=== PATIENT | female | born 1965 | race Caucasian/White ===

== ENCOUNTER 2017-05-08 11:51 | Emergency (ER) | payer MEDICARE, OTHER, SELFPAY | END 2017-05-08 13:06 | disposition home or self-care (01) | PROVIDERS: Emergency Provider Emergency Medicine; Visit Provider Emergency Medicine | DX: S60.221A Contusion of right hand, initial encounter (principal); W22.03XA Walked into furniture, initial encounter; Y92.009 Unspecified place in unspecified non-institutional (private) residence as the place of occurrence of the external cause; J44.9 Chronic obstructive pulmonary disease, unspecified; Z72.0 Tobacco use | CPT/HCPCS: 73110; 73130; 99282 ==

== ENCOUNTER 2017-06-01 20:51 | Emergency (ER) | payer MEDICARE, OTHER, SELFPAY ==
[2017-06-01 21:00] VITALS: BP 113/80; PULSE 85; RESP 24; TEMP 37.4; O2SAT 94; BMI 20.1
--- NOTE | 2017-06-01 21:16 | XR_ITS ---
XR chest 2V INDICATION: Shortness of breath COMPARISON: AP upright chest 01/04/2016 FINDINGS: The cardiovascular structures are unremarkable. No mediastinal shift or hilar mass is evident. The lungs are well expanded and clear bilaterally. The costophrenic sulci are sharp. No significant bony anomalies are apparent. IMPRESSION: Negative chest.
[2017-06-01 21:34] LABS: Basophils % 0.6 % (0.1-2.0); Eosinophils # 0.2 K/mm3 (0.0-0.4); Eosinophils % 2.9 % (0.1-12.0); Hematocrit 38.6 % (37.0-47.0); Hemoglobin 12.7 g/dL (12.2-16.2); Lymphocytes # 3.2 K/mm3 (0.7-4.5); Lymphocytes % 46.5 K/mm3 (10-50); Mean Corpuscular HGB Conc 32.9 g/dL (31.8-35.4); Mean Corpuscular Hemoglobin 29.6 pg (27.0-31.2); Mean Corpuscular Volume 90.2 fl (81-99); Monocytes # 0.4 K/mm3 (0.1-1.0); Monocytes % 5.8 % (1.7-9.3); Neutrophils % 44.2 % (37.0-80.0); Platelet Count 268 K/mm3 (142-424); Red Blood Count 4.28 M/mm3 (4.20-5.40); Red Cell Distribution Width 13.4 % (11.5-17.5); White Blood Count 6.8 K/mm3 (4.8-10.8)
[2017-06-01 21:44] LABS: Alanine Aminotransferase 20 U/L (12-78); Albumin Level 3.3 gm/dL (3.4-5.0); Albumin/Globulin Ratio 0.9 (1.1-1.8); Alkaline Phosphatase 105 U/L (46-116); Anion Gap 11.7 mEq/L (5-15); Aspartate Amino Transferase 21 U/L (15-37); Bilirubin,Total 0.2 mg/dL (0.2-1.0); Blood Urea Nitrogen 13 mg/dL (7-18); Calcium 8.6 mg/dL (8.5-10.1); Carbon Dioxide 28 mmol/L (21.0-32.0); Chloride 106 mmol/L (98-107); Creatinine Clearance Estimated 48 mL/min (0-300); Creatinine,Serum 1.07 mg/dL (0.55-1.02); Estimated Glomerular Filt Rate 54 ml/min (>60); GFR (African American) 65 ML/MIN (>60); Globulin 3.8 gm/dl (1.3-3.2); Glucose 113 mg/dL (74-106); Potassium 3.7 mmoL/L (3.5-5.1); Sodium 142 mmol/L (136-145); Total Protein,Serum 7.1 gm/dL (6.4-8.2)
[2017-06-01 21:52] LABS: Lactic Acid 1.5 mmol/L (0.4-2.0)
--- NOTE | 2017-06-01 22:40 | HMH.EDGENADL ---
ED Disposition Clinical Impression: Acute exacerbation of chronic obstructive pulmonary disease (COPD), Acute exacerbation of chronic bronchitis Disposition: Home, Self-Care Condition on Discharge: Fair Instructions: DI for Chronic Obstructive Pulmonary Disease, DI for Acute Bronchitis Additional Instructions: Please use your nebulizers every 4 hours, take her medications prescribed as directed, follow-up with your PCP within 2 days, if not better. Prescriptions: Amoxicillin/Potassium Clav [Augmentin 875-125 Tablet] 1 tab PO Q12H #20 tab methylPREDNISolone [Medrol] 4 mg PO DIRECTED #1 tab.ds.pk Referrals: Eduardo Morrissey MD [Primary Care Provider] - - Critical Care Critical Care Time: No Attestation: On 06/01/17, the high probability of a clinically significant, sudden or life threatening deterioration of the following system(s) required my full and direct attention, intervention and personal management. The time I documented below is in addition to time spent performing reported procedures but includes the following listed in this critical care notation. Medical Decision Making - Medical Records Medical records reviewed: Yes: I reviewed the patient's medical records. Vital Signs: 06/01/17 21:00 Temperature 99.4 F Temperature Source Oral Pulse Rate [Right Brachial] 85 Respiratory Rate 24 Blood Pressure [Right Arm] 113/80 Blood Pressure Mean [Right Arm] 91 Blood Pressure Source [Right Arm] Automatic Cuff Blood Pressure Position [Right Arm] Sitting 02 Sat by Pulse Oximetry 94 L Oxygen Delivery Method Room Air - Lab Data Lab results reviewed: Yes: I reviewed the patient's lab results. Lab Results 06/01/17 21:25: WBC 6.8, RBC 4.28, Hgb 12.7, Hct 38.6, MCV 90.2, MCH 29.6, MCHC 32.9, RDW 13.4, Plt Count 268, MPV 7.0 L, Neut % (Auto) 44.2, Lymph % (Auto) 46.5, [place] % (Auto) 5.8, Eos % (Auto) 2.9, Baso % (Auto) 0.6, Neut # (Auto) 3.0, Lymph # (Auto) 3.2, [place] # (Auto) 0.4, Eos # (Auto) 0.2, Baso # (Auto) 0.0 06/01/17 21:25: Sodium 142, Potassium 3.7, Chloride 106, Carbon Dioxide 28, Anion Gap 11.7, BUN 13, Creatinine 1.07 H, Estimated Creat Clear 48, Estimated GFR 54 L, Est GFR ( Amer) 65, Glucose 113 H, Calcium 8.6, Total Bilirubin 0.2, AST 21, ALT 20, Alkaline Phosphatase 105, Total Protein 7.1, Albumin 3.3 L, Globulin 3.8 H, Albumin/Globulin Ratio 0.9 L 06/01/17 21:25: Lactic Acid 1.5 06/01/17 21:40: Influenza Type A Ag Negative, Influenza Type B Ag Negative Result diagrams: 06/01/17 21:25 06/01/17 21:25 Orders (Tests/Meds): ED MEDICATIONS Discontinued Medications Generic Name Dose Route Start Last Admin Trade Name Freq PRN Reason Stop Dose Admin Albuterol/Ipratropium 3 ml 06/01/17 21:15 06/01/17 21:19 Duoneb 3ml Neb IH 06/01/17 21:16 3 ml ONCE ONE Administration Albuterol/Ipratropium 2 puff 06/01/17 22:47 06/01/17 22:49 Combivent Respimat 20mcg/100mcg Inhaler IH 06/01/17 22:48 2 puff ONCE ONE Administration Ceftriaxone Sodium 1 gm/ 50 mls @ 100 mls/hr 06/01/17 21:20 06/01/17 21:34 Sodium Chloride IV 06/01/17 21:49 100 mls/hr ONCE ONE Administration Methylprednisolone Sodium Succinate 125 mg 06/01/17 21:20 06/01/17 21:35 Solu-Medrol 125mg/2ml Vial IV 06/01/17 21:21 125 mg ONCE ONE Administration Miscellaneous 1 unit 06/01/17 22:47 06/01/17 22:49 Aerochamber/Optihaler MC 06/01/17 22:48 1 unit ONCE ONE Administration ORDERS Category Date Time Status Blood Culture Stat Micro 06/01/17 21:25 Received - Radiology Data #1 Image(s): Chest Image Reviewed: Yes I reviewed the patient's radiology results, Yes I have reviewed radiologist's interpretation Preliminary Findings: Normal/NAD - [place] Inquiry Pt receiving controlled substance: No - Reevaluation(s) Time: 22:30 Reevaluation #1: Upon reevaluation patient appears in no acute distress all medically stable, with significant improvement in her wheezing. Res
== END 2017-06-01 22:55 | disposition home or self-care (01) ==
PROVIDERS: Emergency Provider Emergency Medicine; PCP Emergency Medicine
DX: J44.1 Chronic obstructive pulmonary disease with (acute) exacerbation (principal); K21.9 Gastro-esophageal reflux disease without esophagitis; F17.210 Nicotine dependence, cigarettes, uncomplicated; Z79.899 Other long term (current) drug therapy
CPT/HCPCS: 71046; 80053; 83605; 85025; 87040; 87275; 87276; 96374; 99283

== ENCOUNTER 2018-04-07 13:47 | Outpatient (RCR) | payer MEDICARE, OTHER, SELFPAY | END 2018-04-14 08:31 | disposition home or self-care (01) | LOC: OT 13:47 | PROVIDERS: Visit Provider Orthopaedic Surgery | DX: M65.4 Radial styloid tenosynovitis [de Quervain] (principal) | CPT/HCPCS: 97763 ==

== ENCOUNTER 2020-09-09 18:46 | Emergency (ER) | payer MEDICARE, OTHER, SELFPAY ==
[2020-09-09 19:31] VITALS: BP 123/88; PULSE 101; O2SAT 97
[2020-09-09 19:37] VITALS: BP 123/88; PULSE 102; RESP 17; TEMP 37.3; O2SAT 98
== END 2020-09-09 19:40 | disposition left against medical advice (07) ==
LOC: ER 19:00
PROVIDERS: Emergency Provider Family Medicine; PCP Family Medicine
DX: Z53.21 Procedure and treatment not carried out due to patient leaving prior to being seen by health care provider (principal)
CPT/HCPCS: G0463; 99211

== ENCOUNTER 2022-02-08 18:27 | Emergency (ER) | payer MEDICARE, OTHER, SELFPAY ==
[2022-02-08] VITALS (7 sets, daily range): BP systolic 108–139; BP diastolic 72–97; PULSE 77–96; RESP 11–20; TEMP 37.4; O2SAT 92–98; BMI 19.7
--- NOTE | 2022-02-08 18:35 | PC.NURSE ---
POC Glucose 90
[2022-02-08 18:40] LABS: POC Glucose,Bedside 90 (70-110)
--- NOTE | 2022-02-08 18:41 | CT_ITS ---
PROCEDURE INFORMATION: Exam: CT Head Without Contrast Exam date and time: 02/08/2022 6:41 PM Age: 57 years old Clinical indication: Stroke-like symptoms; Right upper extremity and right lower extremity numbness/paresthesia; Additional info: R/O stroke TECHNIQUE: Imaging protocol: Computed tomography of the head without contrast. Radiation optimization: All CT scans at this facility use at least one of these dose optimization techniques: automated exposure control; mA and/or kV adjustment per patient size (includes targeted exams where dose is matched to clinical indication); or iterative reconstruction. Other technique: STROKE PROTOCOL was implemented. COMPARISON: HD CT HEAD W/O CONTRAST 01/04/2016 12:18 AM FINDINGS: Brain: The IACs are grossly normal. No extra-axial fluid collections. No evidence of acute intracranial hemorrhage. No CT evidence of large territory acute or subacute intracranial ischemia/infarct. No intracranial mass lesions. No midline shift or herniation. Cerebral ventricles: Ventricles normal. Pituitary gland and sella: The sella is grossly normal. Paranasal sinuses: Visualized paranasal sinuses are clear. Mastoid air cells: Visualized mastoid air cells are clear. Orbital cavities: Visualized orbital contents demonstrate no acute abnormality. Bones/joints: The calvarium and visualized facial bones are intact. Soft tissues: The scalp and visualized soft tissues demonstrate no acute abnormality. Vasculature: High riding right jugular bulb, normal variant. Sigmoid plate appears intact without gross dehiscence. Mild-moderate calcific atherosclerosis. No asymmetric vascular hyperdensities suggestive of thrombosis are identified. Other findings: Palumbo-white differentiation is well maintained. IMPRESSION: 1. No acute intracranial process. No intracranial hemorrhage or mass effect. 2. These findings initiated a critical results reporting process per stroke protocol. An addendum will be issued at the time of clinician notification. ASSESSMENT: ASPECTS ([place] Stroke Program Early CT Score) is 10.
--- NOTE | 2022-02-08 18:42 | XR_ITS ---
PROCEDURE INFORMATION: Exam: XR Chest Exam date and time: 02/08/2022 6:57 PM Age: 57 years old Clinical indication: Shortness of breath; Additional info: R/O stroke TECHNIQUE: Imaging protocol: Radiologic exam of the chest. Views: 1 view. COMPARISON: CR CXR2V XR chest 2V 06/01/2017 9:22 PM FINDINGS: Lungs: Slight pulmonary hyperexpansion and apical hyperlucency suspicious for mild changes of COPD. Pulmonary vasculature grossly normal. No gross pulmonary infiltrates or edema pattern. Pleural spaces: No pleural effusion. No pneumothorax. Heart/Mediastinum: Heart size normal. No tracheal/mediastinal shift. Bones/joints: No acute osseous abnormalities are identified. Soft tissues: Nipple shadows project over the basilar lung kent bilaterally/symmetrically. IMPRESSION: 1. No acute thoracic process. 2. Question mild changes of COPD.
--- NOTE | 2022-02-08 18:43 | PC.NURSE ---
xray notified of order for head ct
--- NOTE | 2022-02-08 19:02 | ECG_ITS ---
APPROVED REPORT Exam: Resting ECG HR:86 bpm ECG Measurements Heart Rate 86 AXES MI 148 P 26 QRSd 92 QRS 68 QT 352 T 65 QTc 395 Conclusion SINUS RHYTHM POSSIBLE RIGHT VENTRICULAR CONDUCTION DELAY [RSR (QR) IN V1/V2] BORDERLINE ECG UNCONFIRMED REPORT Electronically signed by : Darrell Mayo MD 02/14/2022 16:07:02
--- NOTE | 2022-02-08 19:05 | CT_ITS ---
PROCEDURE INFORMATION: Exam: CTA Head With Contrast, Arteriography Exam date and time: 02/08/2022 7:44 PM Age: 57 years old Clinical indication: Numbness; Additional info: Weakness TECHNIQUE: Imaging protocol: Computed tomographic angiography of the head with contrast. Exam focused on the arteries. 3D rendering (Not supervised by radiologist): MIP and/or 3D reconstructed images were created by the technologist. Radiation optimization: All CT scans at this facility use at least one of these dose optimization techniques: automated exposure control; mA and/or kV adjustment per patient size (includes targeted exams where dose is matched to clinical indication); or iterative reconstruction. Contrast material: ISOVUE; Contrast volume: 100 ml; Contrast route: INTRAVENOUS (IV); COMPARISON: CT HEAD/BRAIN WO CON 02/08/2022 6:41 PM FINDINGS: ANTERIOR CIRCULATION: Right internal carotid artery: The visualized distal right ICA cervical segment is unremarkable. The right ICA petrous segment is unremarkable. Mild calcific plaque in the cavernous segment without associated stenosis. The right ICA supraclinoid segment is unremarkable. Right middle cerebral artery: Unremarkable. No occlusion or significant stenosis. No aneurysm. Right anterior cerebral artery: Unremarkable. No occlusion or significant stenosis. No aneurysm. The anterior communicating artery is unremarkable. Left internal carotid artery: The left ICA petrous segment is unremarkable. Moderate calcific plaque in the cavernous segment without evidence of high-grade stenosis. The left ICA supraclinoid segment is unremarkable. Left middle cerebral artery: Unremarkable. No occlusion or significant stenosis. No aneurysm. Left anterior cerebral artery: Unremarkable. No occlusion or significant stenosis. No aneurysm. POSTERIOR CIRCULATION: Right vertebral artery: Small/hypoplastic distal right vertebral artery, normal variant. No occlusion or significant stenosis. No aneurysm. Left vertebral artery: Dominant left vertebral artery. No occlusion or significant stenosis. No aneurysm. Basilar artery: Unremarkable. No occlusion or significant stenosis. No aneurysm. Right posterior cerebral artery: Normal variant persistent origin with hypoplastic right P1 segment. No occlusion or significant stenosis. No aneurysm. Left posterior cerebral artery: Unremarkable. No occlusion or significant stenosis. No aneurysm. Venous sinuses: Limited assessment of the dural venous sinuses and cortical veins due to early contrast phase, largely non-opacified. Normal variant high riding right jugular bulb incidentally noted. The sigmoid plate appears intact without dehiscence. Brain: No enhancing brain lesions or vascular malformations are identified. Cerebral ventricles: No ventriculomegaly. Bones/joints: Unremarkable. No acute fracture. Soft tissues: Unremarkable. IMPRESSION: 1. No evidence of large vessel occlusion. No evidence of arterial dissection or aneurysm/pseudoaneurysm. No acute vascular abnormalities. 2. No acute intracranial process is evident.
--- NOTE | 2022-02-08 19:05 | CT_ITS ---
PROCEDURE INFORMATION: Exam: CTA Neck With Contrast Exam date and time: 02/08/2022 7:44 PM Age: 57 years old Clinical indication: Weakness TECHNIQUE: Imaging protocol: Computed tomographic angiography of the neck with contrast. 3D rendering (Not supervised by radiologist): MIP and/or 3D reconstructed images were created by the technologist. Radiation optimization: All CT scans at this facility use at least one of these dose optimization techniques: automated exposure control; mA and/or kV adjustment per patient size (includes targeted exams where dose is matched to clinical indication); or iterative reconstruction. Contrast material: ISOVUE; Contrast volume: 100 ml; Contrast route: INTRAVENOUS (IV); COMPARISON: CT FACIAL BONES WO CON 02/08/2022 7:32 PM FINDINGS: Right common carotid artery: Normal. No stenosis. No dissection or occlusion. Right internal carotid artery: Mild mixed calcific plaque in the right carotid bulb. Mild tortuosity. No stenosis. No dissection or occlusion. Right external carotid artery: Normal. No stenosis. No dissection or occlusion. Left common carotid artery: Mild tortuosity. No stenosis. No dissection or occlusion. Left internal carotid artery: Mild-moderate tortuosity. No stenosis. No dissection or occlusion. Left external carotid artery: Normal. No stenosis. No dissection or occlusion. Right vertebral artery: Normal. No stenosis. No dissection or occlusion. Left vertebral artery: Dominant left vertebral artery. Mild calcific atherosclerosis in the distal segment. No stenosis. No dissection or occlusion. Brachiocephalic artery: The brachiocephalic artery was marginally evaluated due to early contrast phase, without gross abnormality. Right subclavian artery: The right subclavian artery was marginally evaluated due to early contrast phase, without gross abnormality. Left subclavian artery: The left subclavian artery demonstrates mild-moderate post ostial calcific plaque without stenosis. Aorta: The visualized aortic arch demonstrates mild ectasia and calcific plaque. Aortic assessment is limited by early contrast phase with only minor enhancement at scan acquisition. No gross dissection. Pulmonary arteries: Mild dilatation of the central pulmonary arteries suggesting mild pulmonary arterial hypertension. Thyroid: There is a 19 mm low-density nodule in the right thyroid lobe. Nonemergent thyroid ultrasound evaluation recommended. Soft tissues: No significant soft tissue swelling or hematoma. Bones/joints: No acute osseous abnormalities are identified. Moderate disc space narrowing and marginal spurring C5-C6 with moderate canal stenosis at this level. Slight 2 mm degenerative anterolisthesis C3-C4 and C4-C5. Moderate-severe bilateral foraminal stenosis C5-C6 and C6-C7. Lungs: Moderate centrilobular emphysematous changes in the pulmonary apices. IMPRESSION: 1. No evidence of arterial stenosis, dissection, or aneurysm/pseudoaneurysm. No acute vascular abnormalities. 2. There is a 19 mm low-density nodule in the right thyroid lobe. Recommend nonemergent thyroid ultrasound assessment. 3. Additional nonemergent findings detailed above. COMMENTS: Consistent with the [employer]'s Incidental Findings Committee white paper (J Am Teresa Radiol 2015): In patients aged 35 years and older with an incidental thyroid nodule equal to or greater than 1.[address], MRI or extrathyroidal US, further evaluation with dedicated thyroid US is recommended for patients with normal life expectancy and without comorbidities. For smaller nodules without suspicious features, no further evaluation
--- NOTE | 2022-02-08 19:05 | CT_ITS ---
PROCEDURE INFORMATION: Exam: CT Maxillofacial Without Contrast Exam date and time: 02/08/2022 7:32 PM Age: 57 years old Clinical indication: Injury or trauma; Fall; Other: Scrape TECHNIQUE: Imaging protocol: Computed tomography of the of the face without contrast. Radiation optimization: All CT scans at this facility use at least one of these dose optimization techniques: automated exposure control; mA and/or kV adjustment per patient size (includes targeted exams where dose is matched to clinical indication); or iterative reconstruction. COMPARISON: CT HEAD/BRAIN WO CON 02/08/2022 6:41 PM FINDINGS: Orbital cavities: No acute intraorbital abnormalities. Bones/joints: No fractures or other bone lesions are identified. Left TMJ is appropriately aligned. The right TMJ is currently anteriorly subluxed with the condyle at the articular eminence, however this most likely represents incidental physiologic subluxation from jaw positioning and does not suggest traumatic dislocation. The infratemporal fossae and commercial artist spaces are unremarkable. Paranasal sinuses: The paranasal sinuses are clear. Mastoid air cells: The mastoid air cells are clear. Salivary glands: The parotid and submandibular glands are unremarkable. Lymph nodes: No adenopathy. Soft tissues: No significant facial soft tissue swelling is appreciated. No hematoma. Brain: No acute intracranial abnormalities. Pharynx: The parapharyngeal spaces are unremarkable. The nasopharynx is unremarkable. The oropharynx is unremarkable. The hypopharynx is unremarkable. Larynx: Normal epiglottis. Visualized larynx is unremarkable. Thyroid: 17 mm low-density nodule in the right thyroid lobe partially visualized. Recommend nonemergent thyroid ultrasound assessment. Trachea: The visualized proximal tracheal airway is unremarkable. Other findings: No foreign body. IMPRESSION: 1. No facial fractures are identified. 2. There is a 17 mm low-density nodule in the right thyroid lobe, partially visualized. Recommend nonemergent thyroid ultrasound assessment. 3. The right TMJ is currently anteriorly subluxed, however this likely represents incidental transient physiologic subluxation related to mandibular position and does not suggest traumatic dislocation. COMMENTS: Consistent with the [employer]'s Incidental Findings Committee white paper (J Am Teresa Radiol 2015): In patients aged 35 years and older with an incidental thyroid nodule equal to or greater than 1.[address], MRI or extrathyroidal US, further evaluation with dedicated thyroid US is recommended for patients with normal life expectancy and without comorbidities. For smaller nodules without suspicious features, no further evaluation or follow up is recommended.
[2022-02-08 19:26] LABS: Basophils # 0.1 K/mm3 (0-0.2); Basophils % 0.8 % (0.1-2.0); Eosinophils % 0.2 % (0.1-12.0); Hematocrit 44.2 % (37.0-47.0); Hemoglobin 14.8 g/dL (12.2-16.2); Lymphocytes # 2.1 K/mm3 (0.7-4.5); Lymphocytes % 12.4 % (10-50); Mean Corpuscular HGB Conc 33.5 g/dL (31.8-35.4); Mean Corpuscular Hemoglobin 30.8 pg (27.0-31.2); Mean Platelet Volume 7.9 fl (7.4-10.4); Monocytes # 0.7 K/mm3 (0.1-1.0); Monocytes % 3.9 % (1.7-9.3); Neutrophils % 82.7 % (37.0-80.0); Platelet Count 350 K/mm3 (142-424); Red Cell Distribution Width 14.6 % (11.5-17.5); White Blood Count 16.9 K/mm3 (4.8-10.8)
[2022-02-08 19:28] LABS: MANUAL DIFFERENTIAL MANUAL DIFFERENTIAL (MANUAL DIFF)
[2022-02-08 19:29] LABS: Alanine Aminotransferase 140 U/L (12-78); Albumin Level 4.7 g/dl (3.5-5.0); Albumin/Globulin Ratio 1.4 (1.1-1.8); Alkaline Phosphatase 105 U/L (38-126); Anion Gap 15.9 mEq/L (5-15); Aspartate Amino Transferase 214 U/L (14-36); Blood Urea Nitrogen 21 mg/dl (7-17); Calcium 9.2 mg/dl (8.4-10.2); Carbon Dioxide 30 mmol/L (22.0-30.0); Chloride 92 mmol/L (98-107); Creatinine Clearance Estimated 53 mL/min (50-200); Estimated Glomerular Filt Rate 65 ml/min (>60); GFR (African American) 78 ML/MIN (>60); Globulin 3.4 g/dL (1.3-3.2); Glucose 89 mg/dl (74-100); Potassium 3.9 mmoL/L (3.5-5.1); Sodium 134 mmol/L (136-145); Total Protein,Serum 8.1 g/dl (6.3-8.2)
[2022-02-08 19:31] LABS: Bilirubin,Total 0.1 mg/dl (0.2-1.3)
[2022-02-08 19:33] LABS: Activated Partial Thrombo Time 25.9 seconds (22.8-30.6); INR 0.98 (0.9-1.1); Prothrombin Time 10.6 seconds (10.1-12.5)
[2022-02-08 19:38] LABS: NT Pro Brain Natriuretic Pep. 962 pg/mL (0-125)
[2022-02-08 19:41] LABS: Troponin I 0.07 ng/ml (0.00-0.034)
[2022-02-08 19:55] LABS: Lymphocytes % 8 % (10-50); Neutrophils % 84 % (42-76); Platelet Estimate Normal; RBC Morphology Normal; Total Cells Counted 100
[2022-02-08 20:00] LABS: Thyroid Stimulating Hormone 0.25 uIU/mL (0.465-4.68)
--- NOTE | 2022-02-08 20:23 | HMH.EDNEU ---
Discharge Plan Disposition Patient Disposition: Left Against Medical Advice Condition: Serious Prescriptions Prescriptions: No Action omeprazole 40 MG capsule,delayed release(DR/EC) 40 mg PO BID aspirin 81 MG tablet,delayed release (DR/EC) 81 mg PO DAILY metoprolol tartrate 25 MG tablet 25 mg PO BID fluticasone propionate [Flonase Allergy Relief] 50 mcg/actuation spray,suspension 1 spray INTRANASAL DAILY Rx Instructions: administer into each nostril Referrals Follow up/Referrals: Maldonado Murrieta [Primary Care Provider] - See instructions Clinical Impressions Clinical Impression: Cerebrovascular accident Discharge ED Provider: Raúl Anders Neuro HPI <Martin Galan MD - Last Filed: 02/08/22 20:29> General Chief Complaint: Neuro Symptoms/Deficit Stated Complaint: weakness Time Seen by Provider: 02/08/22 19:23 Mode of Arrival: EMS Source of Information: Patient Limitations: No Limitations Description of Symptoms (Recalled from ER Triage Doc. by RN): to ed per squad with c/o rt side weakness. pt states she went to bed at midnight normal woke up approx 4:30 am with rt leg weaknss, lt side facial droop, slurred speech, lt side headache, nausea, vomiting. pt states she fell today and family came to house and helped her up. blood sugar 90 History of Present Illness HPI Narrative: This is a 57-year-old female presented to the emergency department some weakness. The patient states that last night at around midnight she had a fall out of bed. She does not remember anything since then. She was found by family members today at 4:30 PM by family members and was found to have some difficulty moving her right leg and some facial droop on the left side. She is complaining of some mild headache. She also fell forward and hit her chin on the left side. Patient states that she has a history of TIAs in the past but no focal remaining deficits. She complained of some mild headache at this time. She denies any chest pain or shortness of breath. No abdominal pain or vomiting or diarrhea. No fevers or chills. Related Data Home Medications Medication Instructions Recorded Confirmed aspirin 81 mg tablet,delayed 81 mg PO DAILY heart 11/29/18 02/08/22 release metoprolol tartrate 25 mg tablet 25 mg PO BID Heart 11/29/18 02/08/22 omeprazole 40 mg capsule,delayed 40 mg PO BID stomach 11/29/18 02/08/22 release fluticasone propionate 50 1 spray intranasal DAILY ALLERGIES 02/08/22 02/08/22 mcg/actuation nasal spray,suspension (Flonase Allergy Relief) Allergies Allergy/AdvReac Type Severity Reaction Status Date / Time adhesive [ADHESIVE] Allergy Unknown Verified 01/12/20 18:51 codeine [CODEINE] Allergy Unknown Verified 01/12/20 18:51 hydrocodone [HYDROCODONE] Allergy Unknown Verified 01/12/20 18:51 nickel [NICKEL] Allergy Unknown Verified 01/12/20 18:51 MILK (FOOD) Allergy Mild VOMITTING Uncoded 06/03/19 18:53 <Raúl Anders MD - Last Filed: 02/08/22 23:19> General Source of Information: EMS and Medical Record History of Present Illness HPI Narrative: This is a 57-year-old female presented to the emergency department some weakness. The patient states that last night at around midnight she had a fall out of bed. She does not remember anything since then. She was found by family members today at 4:30 PM by family members and was found to have some difficulty moving her right leg and some facial droop on the left side. She is complaining of some mild headache. She also fell forward and hit her chin on the left side. Patient states that she has a history of TIAs in the past but no focal remaining deficits. She complained of some mild headache at this time. She denies any chest pain or shortness of breath. No abdominal pain or vomiting or diarrhea. No fevers or chills. pt reports found on floor at 0430 and placed on cough and stayed there today and has rt lower ext weakness and
[2022-02-08 20:26] LABS: Microscopic, Urine URINE MICROSCOPIC (MICROSCOPIC)
[2022-02-08 20:27] LABS: Appearance,Urine CLEAR (Clear); Bilirubin,Urine Negative (Negative); Blood, Urine Negative (Negative); Color,Urine YELLOW (Yellow); Glucose,Urine (UA) Negative (Negative); Ketones,Urine TRACE (Negative); Leukocyte Esterase,Urine Negative (Negative); Nitrate,Urine Negative (Negative); Protein,Urine Negative (Negative); Urobilinogen,Urine 0.2 EU/dl (0.2)
[2022-02-08 20:30] LABS: Bacteria,Urine Trace /lpf; Squamous Epithelial Cell,Urine Occasional #/hpf (0-5)
--- NOTE | 2022-02-08 20:34 | CT_ITS ---
PROCEDURE INFORMATION: Exam: CT Lumbar Spine Without Contrast Exam date and time: 02/08/2022 8:45 PM Age: 57 years old Clinical indication: Injury or trauma; Fall; Additional info: Possible stroke TECHNIQUE: Imaging protocol: Computed tomography of the lumbar spine without contrast. Radiation optimization: All CT scans at this facility use at least one of these dose optimization techniques: automated exposure control; mA and/or kV adjustment per patient size (includes targeted exams where dose is matched to clinical indication); or iterative reconstruction. COMPARISON: CT THORACIC SPINE WO CON 02/08/2022 8:42 PM FINDINGS: Bones/joints: Question osteopenia. No fractures or pars defects. No blastic or lytic lesions. T12-L1: Normal. L1-L2: Normal. L2-L3: 2 mm disc bulge. Otherwise normal. L3-L4: Mild disc space narrowing. Mild anterior spurring. Mild posterior annular calcification and 3 mm disc bulge. No central canal stenosis. Mild bilateral facet hypertrophy. Mild left lateral recess stenosis. Mild-moderate left foraminal stenosis and mild right foraminal stenosis. L4-L5: Moderate disc space narrowing. 4 mm grade 1 anterolisthesis. Mild endplate sclerosis. Mild posterior annular calcification and 2 mm disc bulge. Moderate bilateral facet hypertrophy. Mild central canal stenosis with AP thecal sac dimension approximately 9 mm at the midline. Mild lateral recess stenosis bilaterally. Mild right foraminal stenosis. L5-S1: Mild disc space narrowing. Posterior annular calcification and 2 mm disc bulge. No canal or foraminal stenosis. Mild bilateral facet hypertrophy. Kidneys and ureters: Excreted contrast in the renal collecting systems incidentally noted. Vasculature: Moderate atherosclerotic aortoiliac calcification without aneurysm. Soft tissues: Visualized paraspinal soft tissues are normal. IMPRESSION: 1. No acute lumbar spine abnormalities. No evidence of fracture or traumatic subluxation. 2. Osteoarthritic changes and suspected osteopenia with multilevel degenerative disc and facet changes, most pronounced at L4-L5 where there is grade 1 anterolisthesis. 3. Mild canal stenosis L4-L5. Multilevel foraminal stenoses detailed above.
--- NOTE | 2022-02-08 20:34 | CT_ITS ---
PROCEDURE INFORMATION: Exam: CT Cervical Spine Without Contrast Exam date and time: 02/08/2022 8:39 PM Age: 57 years old Clinical indication: Injury or trauma; Fall; Additional info: Possible stroke TECHNIQUE: Imaging protocol: Computed tomography of the cervical spine without contrast. Radiation optimization: All CT scans at this facility use at least one of these dose optimization techniques: automated exposure control; mA and/or kV adjustment per patient size (includes targeted exams where dose is matched to clinical indication); or iterative reconstruction. COMPARISON: CT ANGIO NECK 02/08/2022 7:44 PM FINDINGS: Bones/joints: Straightening of the curvature of the cervical spine is likely positional. Moderate bilateral neural foraminal stenosis from C5-C7. Multilevel degenerative changes of the cervical spine producing multiple levels of mild spinal canal stenosis. This produces up to moderate spinal stenosis at C5-C6. Lungs: Scarring and emphysema in the lung apices. Thyroid: There is a 1.6 cm right thyroid nodule. Soft tissues: Unremarkable. IMPRESSION: 1. No acute fracture or malalignment of the cervical spine. 2. There is a 1.6 cm right thyroid nodule. If not previously performed, follow-up ultrasound is recommended. COMMENTS: Consistent with the [employer]'s Incidental Findings Committee white paper (J Am Teresa Radiol 2015): In patients aged 35 years and older with an incidental thyroid nodule equal to or greater than 1.[address], MRI or extrathyroidal US, further evaluation with dedicated thyroid US is recommended for patients with normal life expectancy and without comorbidities. For smaller nodules without suspicious features, no further evaluation or follow up is recommended.
--- NOTE | 2022-02-08 20:34 | XR_ITS ---
PROCEDURE INFORMATION: Exam: XR Pelvis Exam date and time: 02/08/2022 9:05 PM Age: 57 years old Clinical indication: Injury or trauma; Fall; Additional info: Possible stroke TECHNIQUE: Imaging protocol: Radiologic exam of the pelvis. Views: 1 or 2 view. COMPARISON: ABDPELW CT abdomen pelvis w con 11/29/2018 11:39 AM FINDINGS: Bones/joints: No fracture. Hip joints are well aligned. Hip joint spaces and articular surfaces are grossly well-maintained. No radiographic evidence to suggest transient osteoporosis or avascular necrosis. No blastic or lytic lesions. The SI joints are unremarkable. The pubic symphysis is unremarkable. Soft tissues: No gross soft tissue abnormalities. Organs: Lin catheter in the urinary bladder with excreted contrast from recent CT incidentally noted. Other findings: No gross sacrococcygeal abnormalities. IMPRESSION: No acute findings.
--- NOTE | 2022-02-08 20:34 | CT_ITS ---
PROCEDURE INFORMATION: Exam: CT Thoracic Spine Without Contrast Exam date and time: 02/08/2022 8:42 PM Age: 57 years old Clinical indication: Injury or trauma; Fall; Additional info: Possible stroke TECHNIQUE: Imaging protocol: Computed tomography of the thoracic spine without contrast. Radiation optimization: All CT scans at this facility use at least one of these dose optimization techniques: automated exposure control; mA and/or kV adjustment per patient size (includes targeted exams where dose is matched to clinical indication); or iterative reconstruction. COMPARISON: CT CERVICAL SPINE WO CON 02/08/2022 8:39 PM FINDINGS: Bones/joints: Slight rightward convexity midthoracic scoliotic curvature. Thoracic alignment is otherwise normal. No acute fractures. Mild chronic central superior endplate compression with Schmorl's node formation at T12. No blastic or lytic lesions. Minor disc space narrowing at a few midthoracic levels with mild anterior spurring. No compressive soft disc protrusion or extrusion is evident by CT. No canal stenosis. No neuroforaminal stenosis. Soft tissues: Paraspinous soft tissues are unremarkable without significant soft tissue swelling or soft tissue hematoma. Visualized upper abdominal structures were unremarkable. Lungs: Moderate emphysematous changes in the pulmonary apices. Bandlike atelectasis in the lung bases. Moderate bilateral bronchial wall thickening consistent with age indeterminate bronchitis or bronchial edema. No bronchiectasis. No bronchial occlusions. 5 mm pulmonary nodule in the right lower lobe on series 3, image 106 without measurable calcification. For patients at low risk (minimal or absent history of smoking and of other known risk factors), no routine follow-up is indicated. For patients at high risk (history of smoking or of other known risk factors), consider optional CT at 12 months. (Anne et al., Fleischner Society, 2017). Pleural spaces: No evidence of pleural effusion or pneumothorax within the scan range. Thyroid: Right thyroid nodule measuring 19 mm again noted, recommend nonemergent thyroid ultrasound assessment. IMPRESSION: 1. No acute thoracic spine abnormalities are identified. No acute fractures or traumatic subluxation. Mild chronic superior endplate compression and Schmorl's node at T12. 2. Minor degenerative changes and slight rightward convexity scoliosis. 3. Moderate emphysematous changes in the upper lung kent. 4. Bilateral bronchial wall thickening suggesting changes of age indeterminate bronchitis or bronchial edema. 5. There is a 5 mm pulmonary nodule in the right lower lobe, please see follow-up recommendations above. 6. There is a 19 mm right thyroid nodule, recommend nonemergent thyroid ultrasound assessment.
[2022-02-08 20:54] LABS: Creatine Kinase 109 U/L (30-135)
[2022-02-08 20:56] LABS: Amphetamine/Metha Screen,Urine Negative ng/ml (<1000)
[2022-02-08 20:57] LABS: Barbiturates Screen,Urine Negative ng/ml (<200); Benzodiazepines Screen,Urine Negative ng/ml (<200)
[2022-02-08 20:58] LABS: Cannabinoid Screen,Urine Positive ng/ml (<50); Cocaine Screen,Urine Negative ng/ml (<300)
[2022-02-08 20:59] LABS: Methadone Screen,Urine Negative ng/ml (<300)
[2022-02-08 21:00] LABS: Opiate Screen,Urine Negative ng/ml (<300); Phencyclidine Screen,Urine Negative ng/ml (<25)
--- NOTE | 2022-02-08 21:08 | PC.NURSE ---
Pt repositioned for comfort. No needs or complaints voiced at this time. Call light within reach.
[2022-02-08 21:52] LABS: Coronavirus 19, PCR Not Detected (NotDetected); Influenza A, PCR Not Detected (NotDetected); Influenza B, PCR Not Detected (NotDetected)
--- NOTE | 2022-02-08 22:28 | PC.NURSE ---
LABS OBTAINED. PT UPDATED. GCS 15. NO CHANGES AT THIS TIME.
--- NOTE | 2022-02-08 22:46 | PC.NURSE ---
and WILLIAMS Ramirez at
[2022-02-08 22:55] LABS: Troponin I 0.05 ng/ml (0.00-0.034)
--- NOTE | 2022-02-08 23:00 | PC.NURSE ---
Pt reports I want to leave, I don't want to stay here . Pt states she is calling my son to get me . Pt is A&OxMD Yfn states d/t poor ability to ambulate he would like to admit or look into transferring pt to another hospital. Pt continues to refuse to stay, she signed AMA form.
[2022-02-09 00:22] VITALS: BP 146/81; PULSE 87; RESP 18; TEMP 36.6; O2SAT 95
== END 2022-02-09 00:25 | disposition left against medical advice (07) ==
PROVIDERS: Emergency Medicine; Emergency Provider Emergency Medicine; PCP Family Medicine
DX: I63.9 Cerebral infarction, unspecified (principal); R47.02 Dysphasia; R29.810 Facial weakness; Z53.29 Procedure and treatment not carried out because of patient's decision for other reasons; Z79.82 Long term (current) use of aspirin; Z79.899 Other long term (current) drug therapy; Z88.6 Allergy status to analgesic agent; Z91.011 Allergy to milk products; Z91.048 Other nonmedicinal substance allergy status; F11.11 Opioid abuse, in remission
CPT/HCPCS: 51702; 70450; 70486; 70496; 70498; 71045; 72125; 72128; 72131; 72170; 80053; 80305; 81001; 82550; 82962; 83880; 84443; 84484; 85007; 85025; 85610; 85730; 93005; 99285; C9803; Q9967; U0003; U0005

== ENCOUNTER 2023-03-04 07:42 | Emergency (ER) | payer MEDICARE, OTHER, SELFPAY ==
[2023-03-04 07:42] VITALS: BP 96/59; PULSE 82; RESP 19; TEMP 36.8; O2SAT 99; BMI 18.6
[2023-03-04 08:00] VITALS: BP 118/80; PULSE 77; O2SAT 96
[2023-03-04 08:02] VITALS: O2SAT 99
--- NOTE | 2023-03-04 08:26 | HMH.EDGENADL ---
Discharge Plan Disposition Patient Disposition: Home, Self-Care Prescriptions Prescriptions: No Action fluticasone furoate-vilanterol [Breo Ellipta] 100-25 mcg/dose blister with device 2 inh inhalation DAILY cyclobenzaprine 5 mg tablet 5 mg PO TIDP PRN (Reason: Pain) ondansetron HCl 8 mg tablet 8 mg PO TIDP PRN (Reason: Nausea And Vomiting) Patient Comments: TAKE 1 TABLET BY MOUTH EVERY 8 HOURS NEEDED. buspirone 10 mg tablet 10 mg PO BID Vraylar 1.5 mg capsule 1.5 mg PO DAILY prazosin 1 mg capsule 1 mg PO DAILY Referrals Follow up/Referrals: Provider,Referral, MD [Primary Care Provider] - See instructions Activity Restrictions/Add. Instructions Additional Instructions/Restrictions: Your presentation today was consistent with side effect from the THC pen that you are inhaling. Please avoid this in the future return with any worsening symptoms. Clinical Impressions Clinical Impression: Drug side effects Discharge ED Provider: Dion Connell General Adult HPI General Chief complaint: Recheck/Abnormal Lab/Rx Stated complaint: Intoxication Time Seen by Provider: 03/04/23 08:05 Mode of Arrival: EMS Source of Information: Patient, EMS and Medical Record Limitations: No Limitations Description of Symptoms (Recalled from ER Triage Doc. by RN): Pt brought in by EMS d/t concerns of headache, inhaling pesticides accidently, and new THC pen use. She states I don't know what is wrong with me I can't stop laughing . Denies any abd pain though she does note mild nausea. Denies any falls. States she has recentlt acquired THC pen and has been hitting it several time. History of Present Illness HPI narrative: Patient is a 58-year-old female brought in today for visual disturbances secondary to smoking a THC pen. She states that she has been smoking marijuana daily for extended period of time however she just recently bought 1 of these more concentrated THC pens and has been hitting it several times this morning. She states that she was cooking and she started to feel like the skillet was moving and that the eggs were running from her and that the floor and the clemons were moving. She also states that she was uncontrollably laughing and because of this she started to panic and she called 911. She stated she asked did not want to come to the hospital she just wanted them to tell her that she was okay. She denies any pain or any other symptoms at the moment. Related Data Home Medications Medication Instructions Recorded Confirmed buspirone 10 mg tablet 10 mg PO BID 02/17/23 03/04/23 cariprazine 1.5 mg capsule 1.5 mg PO DAILY mood 02/17/23 03/04/23 (Vraylar) cyclobenzaprine 5 mg tablet 5 mg PO TIDP PRN Pain 02/17/23 03/04/23 fluticasone furoate 100 2 inh inhalation DAILY 02/17/23 03/04/23 mcg-vilanterol 25 mcg/dose inhalation powder (Breo Ellipta) ondansetron HCl 8 mg tablet 8 mg PO TIDP PRN Nausea And 02/17/23 03/04/23 Vomiting prazosin 1 mg capsule 1 mg PO DAILY 02/17/23 03/04/23 Allergies Allergy/AdvReac Type Severity Reaction Status Date / Time adhesive [ADHESIVE] Allergy Unknown Verified 01/12/20 18:51 codeine [CODEINE] Allergy Unknown Verified 01/12/20 18:51 hydrocodone [HYDROCODONE] Allergy Unknown Verified 01/12/20 18:51 nickel [NICKEL] Allergy Unknown Verified 01/12/20 18:51 MILK (FOOD) Allergy Mild VOMITTING Uncoded 06/03/19 18:53 [facility] Disclaimer: The information contained in this section may have been updated after the patient was seen, as this information can be updated by other users. Medical History (Updated 03/04/23 @ 08:25 by Dion Connell MD) Asthma Bipolar 1 disorder Eating disorder Hx of ovarian cyst Hypertension PTSD (post-traumatic stress disorder) Rash TIA (transient ischemic attack) Surgical History (Updated 02/17/23 @ 11:32 by MARY ANN Matthews) History of bladder suspension procedure History of rectal surger
--- NOTE | 2023-03-04 08:46 | PC.NURSE ---
pt gave me permission to let her son know what was going on with her
[2023-03-04 09:03] VITALS: BP 128/84; PULSE 84; RESP 17; TEMP 36.8; O2SAT 98
== END 2023-03-04 09:06 | disposition home or self-care (01) ==
PROVIDERS: Emergency Provider Student in an Organized Health Care Education/Training Program
DX: T40.715A Adverse effect of cannabis, initial encounter (principal); F17.210 Nicotine dependence, cigarettes, uncomplicated; J45.909 Unspecified asthma, uncomplicated; I10 Essential (primary) hypertension; F31.9 Bipolar disorder, unspecified; F43.10 Post-traumatic stress disorder, unspecified; Z86.73 Personal history of transient ischemic attack (TIA), and cerebral infarction without residual deficits; H53.8 Other visual disturbances
CPT/HCPCS: 99282

== ENCOUNTER 2023-05-27 17:47 | Outpatient (CLI) | payer MEDICARE, OTHER, SELFPAY ==
[2023-05-27 18:18] LABS: Basophils # 0.1 K/mm3 (0-0.2); Basophils % 1.1 % (0.1-2.0); Eosinophils # 0.2 K/mm3 (0.0-0.4); Eosinophils % 3.3 % (0.1-12.0); Hematocrit 43.5 % (37.0-47.0); Lymphocytes # 2.7 K/mm3 (0.7-4.5); Lymphocytes % 38.6 % (10-50); Mean Corpuscular HGB Conc 32.1 g/dL (31.8-35.4); Mean Corpuscular Hemoglobin 30.9 pg (27.0-31.2); Mean Corpuscular Volume 96.2 fl (81-99); Mean Platelet Volume 8.9 fl (7.4-10.4); Monocytes # 0.4 K/mm3 (0.1-1.0); Monocytes % 5.8 % (1.7-9.3); Neutrophils # 3.5 K/mm3 (1.8-7.8); Neutrophils % 51.3 % (37.0-80.0); Platelet Count 295 K/mm3 (142-424); Red Blood Count 4.52 M/mm3 (4.20-5.40); Red Cell Distribution Width 13.2 % (11.5-17.5); White Blood Count 6.9 K/mm3 (4.8-10.8)
[2023-05-27 18:25] LABS: Alanine Aminotransferase 14 U/L (12-78); Albumin Level 4.5 g/dl (3.5-5.0); Albumin/Globulin Ratio 1.6 (1.1-1.8); Alkaline Phosphatase 53 U/L (38-126); Amylase 104 U/L (30-110); Anion Gap 8.5 mEq/L (5-15); Aspartate Amino Transferase 32 U/L (14-36); Bilirubin,Total 0.4 mg/dl (0.2-1.3); Blood Urea Nitrogen 10 mg/dl (7-17); Calcium 9.2 mg/dl (8.4-10.2); Carbon Dioxide 29 mmol/L (22.0-30.0); Chloride 105 mmol/L (98-107); Estimated Glomerular Filt Rate 74 ml/min (>60); GFR (African American) 89 ML/MIN (>60); Globulin 2.9 g/dL (1.3-3.2); Glucose 98 mg/dl (74-100); Lipase 321 U/L (23-300); Potassium 4.5 mmoL/L (3.5-5.1); Sodium 138 mmol/L (136-145); Total Protein,Serum 7.4 g/dl (6.3-8.2)
[2023-05-27 18:43] LABS: Free T4 (Free Thyroxine) 1.81 ng/dl (0.78-2.19)
[2023-05-27 18:57] LABS: Thyroid Stimulating Hormone 0.62 uIU/mL (0.465-4.68)
[2023-05-27 19:16] LABS: Vitamin B12 264 pg/mL (239-931)
[2023-05-31 17:15] LABS: HBsAg Screen Negative (Negative); HCV Ab Reactive (Non Reactive); Hep A Ab, IGM Negative (Negative); Hep B Core Ab, IgM Negative (Negative)
== END 2023-05-27 23:59 ==
LOC: LAB.DROPOF 17:47
PROVIDERS: PCP Nurse Practitioner; Visit Provider Nurse Practitioner
DX: K21.9 Gastro-esophageal reflux disease without esophagitis (principal); R10.84 Generalized abdominal pain; R11.10 Vomiting, unspecified; R63.4 Abnormal weight loss
CPT/HCPCS: 80053; 80074; 82150; 82607; 83690; 84439; 84443; 85025

== ENCOUNTER 2024-04-23 13:21 | Outpatient (CLI) | payer MEDICARE, OTHER, SELFPAY | END 2024-04-23 23:59 | disposition home or self-care (01) | LOC: LAB.DROPOF 04-25 08:53 | PROVIDERS: PCP Nurse Practitioner Family; Visit Provider Nurse Practitioner Family | DX: N39.0 Urinary tract infection, site not specified (principal) | CPT/HCPCS: 87086; 87088; 87186 ==

== ENCOUNTER 2024-05-31 16:00 | Emergency (ER) | payer MEDICARE, OTHER, SELFPAY ==
[2024-05-31 16:02] VITALS: BP 127/91; PULSE 85; RESP 20; TEMP 36.6; O2SAT 97; BMI 19.1
[2024-05-31 16:06] VITALS: BP 126/96; PULSE 98; O2SAT 97
[2024-05-31 16:08] VITALS: BP 135/109; PULSE 91; O2SAT 98
--- NOTE | 2024-05-31 16:11 | ED_ITS ---
<Statement entered by Anna Lima DO - 05/31/24 20:43> I was consulted by the MARGARITA, and we discussed the complexity of the problems being addressed. I approved the treatment and management plan for this patient's care in the emergency department, thus performing a substantive portion of the medical decision making. Anna Lima DO Discharge Plan Disposition Patient Disposition: Home, Self-Care Condition: Fair Prescriptions Prescriptions: No Action cyclobenzaprine 5 mg tablet 5 mg PO TIDP PRN (Reason: Pain) Qty: 30 0RF prednisone 20 mg tablet 20 mg PO BID 5 Days Qty: 10 0RF naproxen 500 mg tablet 500 mg PO BID Qty: 30 0RF fluticasone furoate-vilanterol [Breo Ellipta] 100-25 mcg/dose blister with device 1 inh inhalation DAILY Qty: 60 2RF omeprazole 40 mg capsule,delayed release(DR/EC) 40 mg PO DAILY Qty: 90 2RF ondansetron HCl 8 mg tablet 8 mg PO TIDP PRN (Reason: Nausea And Vomiting) Qty: 30 0RF Referrals Follow up/Referrals: Leno Martínez MD [Staff Physician] - See instructions Teodoro Paredes APRN [Primary Care Provider] - See instructions Activity Restrictions/Add. Instructions Additional Instructions/Restrictions: I have referred you to pain management. Please call in the morning as soon as the clinic opens. I believe you have neuropathic pain and need the appropriate workup for that. If your symptoms do not improve or worsen or change follow-up with your PCP AUDREY or return to the ER as needed. Clinical Impressions Clinical Impression: Neuropathic pain Print Language Print Language: Chinese Discharge ED Provider: Anna Lima General Adult HPI General Chief complaint: Extremity Injury, Upper Stated complaint: Right arm pain Time Seen by Provider: 05/31/24 16:11 History of Present Illness HPI narrative: Patient presents for evaluation of right upper extremity pain. Patient gives a 2-year history of pain of her right upper extremity that is worsened over the last 5 days. She denies any known trauma ever. Patient states this began with pain in her right hand that is now progressed over the last 5 days to involve her entire arm. Patient states that it is worse when standing and arm is dependent and is able to be relieved when her arm is abducted and raised above her head and she is lying flat. She is seen multiple providers in multiple locations attempting to get relief without success. Patient denies any neurologic workup thus far. She has seen a hand surgeon in [facility] most recently. She saw her PCP this past who ordered a shoulder x-ray as an outpatient and gave her multimodal regimen to attempt to control her pain. Patient states that has not helped. Patient states that pain is a burning intense constant but retains motor and function. She denies chest pain shortness of breath fever chills hemoptysis hematochezia melena nausea vomit diarrhea. Related Data Previous Rx's ?Medication ?Instructions ?Recorded fluticasone furoate 100 1 inh inhalation DAILY #60 ea 03/09/24 mcg-vilanterol 25 mcg/dose inhalation powder (Breo Ellipta) omeprazole 40 mg capsule,delayed 40 mg PO DAILY #90 caps 03/09/24 release ondansetron HCl 8 mg tablet 8 mg PO TIDP PRN Nausea And 03/09/24 Vomiting #30 tabs cyclobenzaprine 5 mg tablet 5 mg PO TIDP PRN Pain #30 tabs 03/25/24 naproxen 500 mg tablet 500 mg PO BID #30 tabs 05/27/24 prednisone 20 mg tablet 20 mg PO BID 5 days #10 tabs 05/27/24 Allergies Allergy/AdvReac Type Severity Reaction Status Date / Time adhesive (ADHESIVE) Allergy Unknown Unknown Verified 05/27/24 11:54 allergy reaction codeine (CODEINE) Allergy Unknown Unknown Verified 05/27/24 11:54 allergy reaction hydrocodone (HYDROCODONE) Allergy Unknown Unknown Verified 05/27/24 11:54 allergy reaction nickel (NICKEL) Allergy Unknown Unknown Verified 05/27/24 11:54 allergy reaction Milk Containing Products Allergy Vomiting Verified 05/27/24 11:54 (Dairy) [facility] Disclaimer: The information contained in this section may have been updated after the patient was seen, as this information can be updated by other users. Medical History Infected sebaceous cyst of skin Weight loss, non-intentional Eating disorder Hx of ovarian cyst Asthma TIA (transient ischemic attack) Hypertension Bipolar 1 disorder PTSD (post-traumatic stress disorder) Rash Surgical History History of rectal surgery History of bladder suspension procedure Hx of hysterectomy Hx of right knee surgery Hx of appendectomy Family History Mother Alcoholism Coronary artery disease Diabetes FHx: mental illness Heart attack Hypertension Grandmother Alcoholism FHx: mental illness Father Cancer LUNG CA FHx: mental illness Sister Coronary artery disease Other Substance abuse Social History Smoking Status: Current every day smoker tobacco type: cigarettes packs per day: 2 second hand exposure: Yes alcohol intake: current alcohol intake frequency: holidays/special occasions only substance use type: former substance user and heroin current occupational status: disabled Travel in the last 8 weeks: None household members: significant other housing: house Have you lived/traveled outside [place] in past 30 days?: No Contact w/someone who lives/traveled outside US past 30 days?: No Exposure to someone with infectious disease in past 14 days?: No Do you have a fever (greater than 100.4 F or 38 C)?: No Have you tested positive for COVID-19: No Exposed to someone with COVID-19 in past 14 days?: No Do you have a sore throat?: No Do you have a cough?: No Do you have any weakness?: No Do you have any diarrhea?: No Are you experiencing any unusual bleeding?: No Do you have any muscle aches/pain?: No Do you have any abdominal pain?: No Are you experiencing loss of taste or smell?: No Other Medical History Have you received the Flu Vaccine for this season: Yes Have you received the Pneumonia Vaccine: No ROS Obtained: Yes Systems reviewed as appropriate & no additional complaints except as documented Physical Exam General General appearance: alert and in no apparent distress Respiratory Respiratory exam: Present normal lung sounds bilaterally Cardiovascular Cardiovascular exam: Present regular rate Neurological Exam Neurological exam: Present alert and oriented X3 Medical Decision Making Medical Records Medical records reviewed: Yes I reviewed the patient's medical records. Screening: Per USPSTF and CDC recommendations, given the prevalence of disease in our reg ion, it is our hospital?s policy to screen for HIV and viral Hepatitis for all patients aged 18 and over and those with ongoing risk factors. Collins Inquiry Pt receiving controlled substance: No Vital Signs: 05/31/24 16:02 05/31/24 16:06 05/31/24 16:08 Temperature 97.8 F Temperature Source Oral Pulse Rate 98 H 91 H Pulse Rate [Right] 85 Respiratory Rate 20 Blood Pressure 126/96 H 135/109 H Blood Pressure [Left Arm] 127/91 H Blood Pressure Mean [Left Arm] 103 Blood Pressure Source Blood Pressure Source [Left Arm] Automatic Cuff 02 Sat by Pulse Oximetry 97 97 98 Oxygen Delivery Method Room Air Room Air Room Air 05/31/24 16:31 05/31/24 17:11 Temperature 98 F Temperature Source Oral Pulse Rate 92 H 89 Pulse Rate [Right] Respiratory Rate 20 Blood Pressure 143/100 H 130/88 Blood Pressure [Left Arm] Blood Pressure Mean [Left Arm] Blood Pressure Source Automatic Cuff Blood Pressure Source [Left Arm] 02 Sat by Pulse Oximetry 97 Oxygen Delivery Method Room Air Room Air Lab Data Lab results reviewed: Yes I reviewed the patient's lab results. Orders (Tests/Meds): ORDERS Category Date Time Status Shoulder XR right miminum 2 views [XR shoulder RT min Exams 05/31/24 16:52 Completed 2V] Stat Medical Decision Narrative: In summary patient is a 59-year-old female who presents to the emergency department for evaluation of right upper extremity neuropathic pain. Patient is hemodynamically stable upon arrival, afebrile. Physical exam is remarkable for nonreproducible pain on exam with no C-spine tenderness no neck tenderness no bony deformity noted. Patient is neurovascularly intact distally in the right upper extremity and retains full range of motion. Patient has good drawing box tender strength has positive radial and ulnar pulses. I do not see any muscle wasting.. Differential diagnosis includes osteoarthritis versus thoracic outlet syndrome versus neuropathic pain versus radicular pain etc. Initial workup will be conducted with plain film shoulder x-ray. Initial interventions were considered however patient received a steroid shot in her PCPs office and is currently on steroids along with anti-inflammatories and muscle relaxers thus deferred for now. Initial workup reviewed by me shows no bony deformity on plain film x-ray. Upon repeat evaluation I was able to get the pain to subside by fashioning a sling with the arm at 45 degrees at the elbow suspended by a clean gauze sling around her neck. Patient did report that that significantly reduced her discomfort.. Given this I have offered the patient referral to pain management for further evaluation and neurologic testing and via patient directed decision making and discharge she is excepted. We will send a message to the pain management vp clinical research and refer her to Dr. Martínez with strict return precautions. Critical Care Critical Care Time Critical Care Time: No
--- NOTE | 2024-05-31 16:30 | PC.NURSE ---
Carter CRUZ at bedside
[2024-05-31 16:31] VITALS: BP 143/100; PULSE 92; O2SAT 97
--- NOTE | 2024-05-31 16:52 | XR_ITS ---
PROCEDURE INFORMATION: Exam: XR Right Shoulder Exam date and time: 05/31/2024 4:52 PM Age: 59 years old Clinical indication: Pain; Shoulder; Right; Additional info: Paresthesia TECHNIQUE: Imaging protocol: Radiologic exam of the right shoulder. Views: 2 or more views. COMPARISON: CT CERVICAL SPINE WO CON 02/08/2022 8:39 PM FINDINGS: Bones/joints: There is no evidence of acute fracture.There is no evidence of malalignment or dislocation. Soft tissues: Normal. IMPRESSION: There is no evidence of acute fracture.There is no evidence of malalignment or dislocation.
[2024-05-31 17:11] VITALS: BP 130/88; PULSE 89; RESP 20; TEMP 36.6; O2SAT 97
== END 2024-05-31 17:15 | disposition home or self-care (01) ==
PROVIDERS: Emergency Provider Emergency Medicine; PCP Nurse Practitioner Family
DX: M79.2 Neuralgia and neuritis, unspecified (principal); M79.641 Pain in right hand; M79.601 Pain in right arm
CPT/HCPCS: 73030; 99283

== ENCOUNTER 2024-08-03 11:30 | Outpatient (CLI) | payer MEDICARE, OTHER, SELFPAY ==
[2024-08-03 19:56] LABS: Basophils % 0.4 % (0.1-2.0); Eosinophils # 0.2 K/mm3 (0.0-0.4); Eosinophils % 2.8 % (0.1-12.0); Hematocrit 43.6 % (37.0-47.0); Hemoglobin 14.4 g/dL (12.2-16.2); Lymphocytes # 2.7 K/mm3 (0.7-4.5); Mean Corpuscular Hemoglobin 30.2 pg (27.0-31.2); Mean Corpuscular Volume 91.4 fl (81-99); Mean Platelet Volume 9.7 fl (7.4-10.4); Monocytes # 0.3 K/mm3 (0.1-1.0); Monocytes % 4.3 % (1.7-9.3); Neutrophils # 3.9 K/mm3 (1.8-7.8); Neutrophils % 54.2 % (37.0-80.0); Platelet Count 291 K/mm3 (142-424); Red Blood Count 4.77 M/mm3 (4.20-5.40); Red Cell Distribution Width 13.8 % (11.5-17.5); White Blood Count 7.2 K/mm3 (4.8-10.8)
[2024-08-03 21:38] LABS: Alanine Aminotransferase 17 U/L (12-78); Albumin Level 4.9 g/dl (3.5-5.0); Albumin/Globulin Ratio 1.7 (1.1-1.8); Alkaline Phosphatase 57 U/L (38-126); Anion Gap 9.7 mEq/L (5-15); Aspartate Amino Transferase 29 U/L (14-36); Bilirubin,Total 0.8 mg/dl (0.2-1.3); Blood Urea Nitrogen 9 mg/dl (7-17); Calcium 9.3 mg/dl (8.4-10.2); Carbon Dioxide 26 mmol/L (22.0-30.0); Chloride 107 mmol/L (98-107); Estimated Glomerular Filt Rate 73 ml/min (>60); GFR (African American) 89 ML/MIN (>60); Globulin 2.9 g/dL (1.3-3.2); Glucose 92 mg/dl (74-100); Lipase 318 U/L (23-300); Potassium 4.7 mmoL/L (3.5-5.1); Sodium 138 mmol/L (136-145); Total Protein,Serum 7.8 g/dl (6.3-8.2)
[2024-08-03 22:10] LABS: Thyroid Stimulating Hormone 0.77 uIU/mL (0.465-4.68)
[2024-08-03 22:29] LABS: Vitamin B12 280 pg/mL (239-931)
== END 2024-08-03 23:59 | disposition home or self-care (01) ==
LOC: LAB.DROPOF 08-04 08:50
PROVIDERS: PCP Family Medicine; Visit Provider Family Medicine
DX: R63.4 Abnormal weight loss (principal); R11.2 Nausea with vomiting, unspecified
CPT/HCPCS: 80053; 82607; 83690; 84443; 85025

== ENCOUNTER 2024-08-05 00:11 | Emergency (ER) | payer MEDICARE, OTHER, SELFPAY ==
--- NOTE | 2024-08-05 00:08 | ED_ITS ---
Discharge Plan Disposition Patient Disposition: Home, Self-Care Prescriptions Prescriptions: New methocarbamol 500 mg tablet 500 mg PO Q6H PRN (Reason: pain) Qty: 30 0RF lidocaine 5 % adhesive patch,medicated 1 patch topical DAILY PRN (Reason: pain) Qty: 30 0RF Rx Instructions: leave on most painful area for up to 12 hrs No Action cyclobenzaprine 5 mg tablet 5 mg PO TIDP PRN (Reason: Pain) Qty: 30 0RF ondansetron HCl 8 mg tablet 8 mg PO TIDP PRN (Reason: Nausea And Vomiting) Qty: 30 0RF tramadol 50 mg tablet 50 mg PO TID PRN (Reason: headache) Qty: 60 0RF fluticasone furoate-vilanterol [Breo Ellipta] 100-25 mcg/dose blister with device 1 inh inhalation DAILY Qty: 60 2RF omeprazole 40 mg capsule,delayed release(DR/EC) 40 mg PO DAILY Qty: 90 2RF Referrals Follow up/Referrals: Provider,Referral, MD [Primary Care Provider] - See instructions Activity Restrictions/Add. Instructions Additional Instructions/Restrictions: Please follow-up with your primary care provider for further assessment of the abnormality noted on your C-spine. Please return to the emergency department if you develop any new or worsening symptoms or become concerned for your health. Clinical Impressions Clinical Impression: Fall, Abnormal computed tomography of cervical spine Chest pain Qualifiers: Chest pain type: other chest pain Qualified Code(s): R07.89 - Other chest pain Print Language Print Language: Japanese Discharge ED Provider: Bassam Guajardo General Adult HPI General Chief complaint: Chest Pain Stated complaint: chest pain Time Seen by Provider: 08/05/24 00:15 History of Present Illness HPI narrative: 59-year-old female, history of bipolar disease, COPD, malnutrition presents with focal left upper anterior chest pain after a fall. She tripped and fell over her dog landing on her chest and has had focal chest pain since that time. Denies any concern for cardiac problems. Denies hitting her head, denies loss of consciousness. Denies any other pain. Patient is flailing about and is uncooperative and a poor historian. Related Data Previous Rx's ?Medication ?Instructions ?Recorded fluticasone furoate 100 1 inh inhalation DAILY #60 ea 03/09/24 mcg-vilanterol 25 mcg/dose inhalation powder (Breo Ellipta) omeprazole 40 mg capsule,delayed 40 mg PO DAILY #90 caps 03/09/24 release cyclobenzaprine 5 mg tablet 5 mg PO TIDP PRN Pain #30 tabs 03/25/24 ondansetron HCl 8 mg tablet 8 mg PO TIDP PRN Nausea And 08/03/24 Vomiting #30 tabs tramadol 50 mg tablet 50 mg PO TID PRN headache #60 tabs 08/03/24 lidocaine 5 % topical patch 1 patch topical DAILY PRN pain #30 08/05/24 ea methocarbamol 500 mg tablet 500 mg PO Q6H PRN pain #30 tabs 08/05/24 Allergies Allergy/AdvReac Type Severity Reaction Status Date / Time adhesive (ADHESIVE) Allergy Unknown Unknown Verified 08/05/24 00:34 allergy reaction codeine (CODEINE) Allergy Unknown Unknown Verified 08/05/24 00:34 allergy reaction hydrocodone (HYDROCODONE) Allergy Unknown Unknown Verified 08/05/24 00:34 allergy reaction nickel (NICKEL) Allergy Unknown Unknown Verified 08/05/24 00:34 allergy reaction Milk Containing Products Allergy Vomiting Verified 08/05/24 00:34 (Dairy) [facility] Disclaimer: The information contained in this section may have been updated after the patient was seen, as this information can be updated by other users. Medical History (Updated 08/05/24 @ 02:09 by Bassam Guajardo MD) Sinusitis Headache Nausea & vomiting Infected sebaceous cyst of skin Weight loss, non-intentional Eating disorder Hx of ovarian cyst Asthma TIA (transient ischemic attack) Hypertension Bipolar 1 disorder PTSD (post-traumatic stress disorder) Rash Surgical History History of rectal surgery History of bladder suspension procedure Hx of hysterectomy Hx of right knee surgery Hx of appendectomy Family History Mother Alcoholism Coronary artery disease Diabetes FHx: mental illness Heart attack Hypertension Grandmother Alcoholism FHx: mental illness Father Cancer LUNG CA FHx: mental illness Sister Coronary artery disease Other Substance abuse Social History (Updated 08/03/24 @ 10:33 by Paula Nayak MA) Smoking Status: Current every day smoker tobacco type: cigarettes packs per day: 2 second hand exposure: Yes alcohol intake: current alcohol intake frequency: holidays/special occasions only substance use type: former substance user and heroin current occupational status: disabled Travel in the last 8 weeks: None household members: significant other housing: house Other Medical History Have you received the Flu Vaccine for this season: Yes Have you received the Pneumonia Vaccine: No ROS Obtained: Yes All systems reviewed & no additional complaints except as documented Physical Exam General General appearance: alert, anxious (Writhing about in the bed) and cachectic Head Head exam: atraumatic and normocephalic Eye Eye exam: Present normal appearance, PERRL and EOMI ENT ENT exam: Present normal oropharynx and normal external ear exam Neck Neck exam: Present normal inspection and full ROM Chest Chest inspection: Present normal inspection, symmetric chest wall rise and tenderness (Left anterior upper) Respiratory Respiratory exam: Present normal lung sounds bilaterally; Absent respiratory distress Cardiovascular Cardiovascular exam: Present regular rate and normal rhythm Abdominal Exam Abdominal exam: Present soft; Absent distention, tenderness or guarding Extremities Exam Extremities exam: Present normal inspection; Absent edema or joint swelling Back Exam Back exam: Present normal inspection; Absent tenderness Neurological Exam Neurological exam: Present alert and oriented X3; Absent motor sensory deficit Psychiatric Psychiatric exam: Present normal affect and normal mood Skin Skin exam: Present warm, dry and normal color Lymphatic Lymphatic Findings: no adenopathy Medical Decision Making Medical Records Medical records reviewed: Yes I reviewed the patient's medical records. Screening: Per USPSTF and CDC recommendations, given the prevalence of disease in our region, it is our hospital?s policy to screen for HIV and viral Hepatitis for all patients aged 18 and over and those with ongoing risk factors. Collins Inquiry Pt receiving controlled substance: No Collins was queried for this patient: No Vital Signs: 08/05/24 00:30 Temperature 98.3 F Temperature Source Temporal Artery Scan Pulse Rate [Apical] 98 H Respiratory Rate 26 H Blood Pressure [Right Arm] 148/125 H Blood Pressure Mean [Right Arm] 132 02 Sat by Pulse Oximetry 100 Oxygen Delivery Method Room Air Lab Data Lab results reviewed: Yes I reviewed the patient's lab results. Lab Results 08/05/24 00:14: WBC 9.0, RBC 4.45, Hgb 13.5, Hct 39.3, MCV 88.3, MCH 30.3, MCHC 34.4, RDW 13.4, Plt Count 299, MPV 9.2, Neut % (Auto) 45.5, Lymph % (Auto) 45.3, [place] % (Auto) 6.0, Eos % (Auto) 2.8, Baso % (Auto) 0.3, Neut # (Auto) 4.1, Lymph # (Auto) 4.1, [place] # (Auto) 0.5, Eos # (Auto) 0.3, Baso # (Auto) 0.0, PT 9.8 L, INR 0.86 L, Sodium 135 L, Potassium 4.0, Chloride 102, Carbon Dioxide 26, Anion Gap 11.0, BUN 12 D, Creatinine 0.90, Estimated Creat Clear 43, Estimated GFR 64, Est GFR ( Amer) 78, Glucose 99, Calcium 9.6, Total Bilirubin 0.5, AST 33, ALT 16, Alkaline Phosphatase 63, Total Protein 7.7, Albumin 4.9, Globulin 2.8, Albumin/Globulin Ratio 1.8 08/05/24 00:14 08/05/24 00:14 Orders (Tests/Meds): ED MEDICATIONS Generic Name Dose Route Start Last Admin Trade Name Freq PRN Reason Stop Dose Admin Sodium Chloride 10 ml 08/05/24 00:10 Sodium Chloride 0.9% 10ml Vial IV 09/04/24 00:09 NEEDED PRN to Dilute Lorazepam inj Discontinued Medications Generic Name Dose Route Start Last Admin Trade Name Freq PRN Reason Stop Dose Admin Acetaminophen 1,000 mg 08/05/24 00:10 08/05/24 00:39 Acetaminophen 500mg Tab PO 08/05/24 00:11 Not Given ONCE ONE Hydromorphone HCl 0.5 mg 08/05/24 00:10 08/05/24 00:17 Hydromorphone 2mg/Ml Syringe IV 08/05/24 00:11 0.5 mg ONCE ONE Administration Ketorolac Tromethamine 30 mg 08/05/24 00:10 08/05/24 00:18 Ketorolac 30mg/Ml Vial IV 08/05/24 00:11 30 mg ONCE ONE Administration Lorazepam 1 mg 08/05/24 00:10 08/05/24 00:16 Lorazepam 2mg/Ml Vial IV 08/05/24 00:11 1 mg ONCE ONE Administration ORDERS Category Date Time Status CT cervical spine wo con Stat Cat Scan 08/05/24 00:[address] chest wo con Stat Cat Scan 08/05/24 00:[address] head/brain wo con Stat Cat Scan 08/05/24 00:13 Completed CXR --portable [XR chest portable] Stat Exams 08/05/24 00:10 Completed CBC w/Auto Diff [Complete Blood Count Auto Diff] Stat Lab 08/05/24 00:14 Completed CMP [Comprehensive Metabolic Panel] Stat Lab 08/05/24 00:14 Completed INR [Prothrombin Time INR] Stat Lab 08/05/24 00:14 Completed Medical Decision Narrative: 59-year-old female with history of malnutrition, COPD, bipolar presents for focal left upper chest pain after she fell tripped over her dog. History was obtained via interactive discussion with patient, EMS. On arrival, patient is [afebrile, hemodynamically stable, satting appropriately, alert, oriented x4, GCS 15], moving all extremities spontaneously. Full physical exam performed and significant for focal tenderness to the left upper thoracic chest wall. Patient is writhing around, uncooperative, grimacing, poor historian Differential includes but is not limited to intracranial trauma intrathoracic trauma intra-abdominal trauma spine trauma extremity trauma. Patient was given Dilaudid, Ativan, Tylenol Toradol for anxiolysis and pain control in order to assess patient for traumatic injuries. Workup initiated including chest x-ray, CT head, CT C-spine, CT chest Noncon, CBC CMP INR. On re-evaluation, patient [remains afebrile, HD stable.] Laboratory workup independently interpreted by me and significant for normal renal function, no significant electrolyte derangement, normal coags Imaging independently interpreted by me and significant for no evidence of rib fracture or pneumothorax on chest x-ray. Evidence of intracranial bleeding, cervical fracture or pulmonary contusions on CT See radiology read for full review of final results. Radiology notes a abnormality within the cervical spine though does not appear to be acute fracture or traumatic injury but does recommend a follow-up MRI. EKG, D-dimer, troponin was considered, but deemed unnecessary due to no concern for cardiac chest pain. Given patient history, exam and workup, patient's presentation most likely represents traumatic musculoskeletal chest pain. I discussed the abnormal finding on the C-spine with the patient and recommended she follow-up for MRI. Patient was discharged in stable condition with prescription for lidocaine patches and muscle relaxers.. Procedures Risk/Benefits of Procedure(s) Were Explained: Yes Critical Care Critical Care Time Critical Care Time: No
--- NOTE | 2024-08-05 00:10 | XR_ITS ---
PROCEDURE INFORMATION: Exam: XR Chest Exam date and time: 08/05/2024 12:17 AM Age: 59 years old Clinical indication: Chest wall pain; Additional info: Left chest pain after fall TECHNIQUE: Imaging protocol: Radiologic exam of the chest. Views: 1 view. COMPARISON: CR XR CHEST PORTABLE 02/08/2022 6:57 PM FINDINGS: Lungs: Unremarkable. No consolidation. Pleural spaces: Unremarkable. No pleural effusion. No pneumothorax. Heart/Mediastinum: Unremarkable. No cardiomegaly. Bones/joints: Unremarkable. IMPRESSION: No acute radiographic finding identified.
--- NOTE | 2024-08-05 00:13 | CT_ITS ---
PROCEDURE INFORMATION: Exam: CT Head Without Contrast Exam date and time: 08/05/2024 12:31 AM Age: 59 years old Clinical indication: Injury or trauma; Fall TECHNIQUE: Imaging protocol: Computed tomography of the head without contrast. Radiation optimization: All CT scans at this facility use at least one of these dose optimization techniques: automated exposure control; mA and/or kV adjustment per patient size (includes targeted exams where dose is matched to clinical indication); or iterative reconstruction. COMPARISON: CT ANGIO HEAD 02/08/2022 7:44 PM FINDINGS: Brain: No hemorrhage. Unremarkable white matter. No mass effect. Cerebral ventricles: No ventriculomegaly. Paranasal sinuses: Visualized sinuses are unremarkable. No fluid levels. Mastoid air cells: Visualized mastoid air cells are well aerated. Bones: Unremarkable. No acute fracture. Soft tissues: Unremarkable. IMPRESSION: No acute intracranial findings by CT criteria.
--- NOTE | 2024-08-05 00:13 | CT_ITS ---
PROCEDURE INFORMATION: Exam: CT Chest Without Contrast; Diagnostic Exam date and time: 08/05/2024 12:28 AM Age: 59 years old Clinical indication: Chest wall pain; Additional info: Trauma, left chest pain TECHNIQUE: Imaging protocol: Diagnostic computed tomography of the chest without contrast. Radiation optimization: All CT scans at this facility use at least one of these dose optimization techniques: automated exposure control; mA and/or kV adjustment per patient size (includes targeted exams where dose is matched to clinical indication); or iterative reconstruction. COMPARISON: CR XR CHEST PORTABLE 08/05/2024 12:17 AM FINDINGS: Lungs: Underlying diffuse centrilobular emphysematous changes. No consolidation. No masses. Pleural spaces: Unremarkable. No pneumothorax. No pleural effusion. Heart: Unremarkable. No cardiomegaly. No pericardial effusion. Coronary arteries: Atherosclerotic calcification of coronary arteries. Lymph nodes: Unremarkable. No enlarged lymph nodes. Vasculature: Atherosclerotic calcification of thoracic aorta without aneurysm. Bones/joints: Incidental T12 superior endplate Schmorl's node. No acute findings. Soft tissues: Unremarkable. IMPRESSION: No acute findings identified. COMMENTS: The presence of pulmonary emphysema on CT is an independent risk factor for lung cancer. In the absence of a history or active diagnosis of lung cancer, it is recommended that this patient with emphysema be evaluated for enrollment in a low dose CT lung cancer screening program.
--- NOTE | 2024-08-05 00:13 | CT_ITS ---
PROCEDURE INFORMATION: Exam: CT Cervical Spine Without Contrast Exam date and time: 08/05/2024 12:33 AM Age: 59 years old Clinical indication: Injury or trauma; Fall TECHNIQUE: Imaging protocol: Computed tomography of the cervical spine without contrast. Radiation optimization: All CT scans at this facility use at least one of these dose optimization techniques: automated exposure control; mA and/or kV adjustment per patient size (includes targeted exams where dose is matched to clinical indication); or iterative reconstruction. COMPARISON: CT CERVICAL SPINE WO CON 02/08/2022 8:39 PM FINDINGS: Bones: No acute fracture. Normal alignment. Chronic well-defined asymmetric prominence of left C4/5 neural foramen (series [id number], image 43). Lungs: Emphysematous changes in visualized apices. Soft tissues: Unremarkable. IMPRESSION: 1. No acute findings identified. 2. Chronic asymmetric prominence of left C4/5 neural foramen. Considerations include possible slow growing mass, cyst or anatomic variance. Consider nonurgent MRI for further imaging evaluation as clinically indicated.
[2024-08-05] MEDS: LORazepam 2MG/ML VIAL 1 MG IV (00:16)
[2024-08-05] MEDS: HYDROMORPHONE 2MG/ML SYRINGE 0.5 MG IV (00:17)
[2024-08-05] MEDS: KETOROLAC 30MG/ML VIAL 30 MG IV (00:18)
[2024-08-05 00:30] VITALS: BP 148/125; PULSE 98; RESP 26; TEMP 36.8; O2SAT 100; BMI 19.5
[2024-08-05 00:34] LABS: Basophils % 0.3 % (0.1-2.0); Eosinophils # 0.3 K/mm3 (0.0-0.4); Eosinophils % 2.8 % (0.1-12.0); Hematocrit 39.3 % (37.0-47.0); Hemoglobin 13.5 g/dL (12.2-16.2); Lymphocytes # 4.1 K/mm3 (0.7-4.5); Lymphocytes % 45.3 % (10-50); Mean Corpuscular HGB Conc 34.4 g/dL (31.8-35.4); Mean Corpuscular Hemoglobin 30.3 pg (27.0-31.2); Mean Corpuscular Volume 88.3 fl (81-99); Mean Platelet Volume 9.2 fl (7.4-10.4); Monocytes # 0.5 K/mm3 (0.1-1.0); Neutrophils # 4.1 K/mm3 (1.8-7.8); Neutrophils % 45.5 % (37.0-80.0); Platelet Count 299 K/mm3 (142-424); Red Blood Count 4.45 M/mm3 (4.20-5.40); Red Cell Distribution Width 13.4 % (11.5-17.5)
[2024-08-05 00:43] LABS: Albumin Level 4.9 g/dl (3.5-5.0); Chloride 102 mmol/L (98-107); Sodium 135 mmol/L (136-145)
[2024-08-05 00:46] LABS: Alanine Aminotransferase 16 U/L (12-78); Albumin/Globulin Ratio 1.8 (1.1-1.8); Alkaline Phosphatase 63 U/L (38-126); Aspartate Amino Transferase 33 U/L (14-36); Bilirubin,Total 0.5 mg/dl (0.2-1.3); Blood Urea Nitrogen 12 mg/dl (7-17); Carbon Dioxide 26 mmol/L (22.0-30.0); Creatinine Clearance Estimated 43 mL/min (50-200); Estimated Glomerular Filt Rate 64 ml/min (>60); GFR (African American) 78 ML/MIN (>60); Globulin 2.8 g/dL (1.3-3.2); INR 0.86 (0.9-1.1); Prothrombin Time 9.8 seconds (10.1-12.5); Total Protein,Serum 7.7 g/dl (6.3-8.2)
[2024-08-05 00:47] LABS: Calcium 9.6 mg/dl (8.4-10.2); Glucose 99 mg/dl (74-100)
[2024-08-05] MEDS: LIDOCAINE 5% TRANSDERMAL PATCH 1 EACH TP (02:14)
[2024-08-05 02:18] VITALS: BP 111/84; PULSE 82; RESP 16; TEMP 36.7; O2SAT 96
== END 2024-08-05 02:19 | disposition home or self-care (01) ==
PROVIDERS: Emergency Provider Emergency Medicine
DX: R07.89 Other chest pain (principal); R93.7 Abnormal findings on diagnostic imaging of other parts of musculoskeletal system; R07.9 Chest pain, unspecified; F17.210 Nicotine dependence, cigarettes, uncomplicated
CPT/HCPCS: 70450; 71045; 71250; 72125; 80053; 85025; 85610; 96374; 96375; 99284; J1171; J1885; J2060

== ENCOUNTER 2024-10-22 13:37 | Outpatient (CLI) | payer MEDICARE, OTHER, SELFPAY ==
--- OUTSIDE RECORDS SUMMARY | 2024-08-31 11:15 | XMS_ITS | Encounter Summary ---
Author Organization [facility] Address [address] [place] [address] Care Team Providers Care Religious Activities Director Name Role Phone Jarod Falcon MD Unavailable [phone] Gonsalo Quarles DPM Unavailable Unavailab Darrell Johansen DPM Unavailable [phone] No Pcp, Per Patient Primary Care Provider Candice fraga Reason for Referral * Specialty Diagnoses / Procedures Referred By Contmarichuy t Referred To Contact Diagnoses Irritation of right ulnar nerve Moncho Grijalva MD [address] [place] [address] Phone: tel: fax: Referral ID Status Reason Start Date Expiration Date Visits Re quested Visits Authorized Reason for Visit * Reason Comments Pain Encounter Details Date Type Department Care Team (Late st Contact Info) Description 08/31/2024 11:15 AM EDT Office Visit [facility] [address] [place] [address] Patience Martinez APRN [address] [address] Irritation of right ulnar nerve (Primary Dx); Right hand pain Social History Tobacco Use Types Packs/Day Years Used Date Smoking Tobacco: Every Day Cigarettes 0.5 49.8 Started: 01/12/1975 Smokeless Tobacco: Never Alcohol Use Standard Drinks/Week Comments Yes 0 (1 standard drink = 0.6 oz pur e alcohol) occ Overall Financial Resource Strain (CARDIA) Answe r Date Recorded Difficulty of Paying Living Expenses Somewhat rivera rd 06/24/2019 PHQ-2 Answer Date Recorded PHQ-2 Total Score 0 12/31/2022 Hunger Vital Sign Answer Date Recorded Worried About Running Out of Food in the Last Ye ar Never true 06/24/2019 Ran Out of Food in the Last Year Never true 06/24/2019 PRAPARE - Transportation Answer Date Re corded Lack of Transportation (Medical) Yes 06/24/2019 Lack of Transportation (Non-Medical) Yes 06/24/2019 Sexually Active Control Partners Comments Yes Male Comments No Sex and Gender Information Value Date Recorded Sex Assigned at Not on file Legal Sex Female 6:28 PM EDT Gender Identity Not on file Sexual Orientation Not on file documented as of this encounter Functional Status * Is the person deaf or does he/she have serious difficulty hearing? Answer Date of Assessment Author No 12/31/2022 1:59 PM EDT Rosi Mendoza RMA * Is the person blind or does he/she have serious difficulty seeing even when wearing glasses? Answer Date of Assessment Author No 12/31/2022 1:59 PM EDT Rosi Mendoza RMA * Does this person have serious difficulty walking or climbing stairs? Answer Date of Assessment Author No 12/31/2022 1:59 PM EDT Rosi Mendoza RMA * Does this person have difficulty dressing or bathing? Answer Date of Assessment Author No 12/31/2022 1:59 PM EDT Rosi Mendoza RMA * Because of a physical, mental or emotional condition, does this person have difficulty doing errands alone such as visiting a doctor's office or shopping? Answer Date of Assessment Author No 12/31/2022 1:59 PM EDT Rosi Mendoza RMA documented as of this encounter Mental Status * Because of a physical, mental or emotional condition, does this person have serious difficulty concentrating, remembering or making decisions? Answer Entry Date Author No 12/31/2022 1:59 PM KELLENT Rosi Mendoza RMA documented in this encounter Progress Notes * Patience Martinez, PIGMENT PUSHER - 08/31/2024 11:15 AM EDT Images from the original note were not included. DATE OF VISIT: 08/31/2024 PATIENT NAME: Noam uDval AGE: 59 y.o. SEX: female CHIEF COMPLAINT Chief Complaint Patient presents with Right Wrist - Pain HPI Noam Duval is a 59 y.o. female who presents to orthopedic urgent care for evaluation of right wrist and hand pain. She tells me that she had surgery with Dr. Pichardo, on 07/07/24, for carpal and cubital tunnel release. She was doing well following the surgery. In July, she suffered a fall where she landed on this right arm with her chest. She immediately dealt with rib fractures and has been healing those. However, the wrist has been painful since her fall and seems to be worsening with time. She has used pain medication, given for the rib fractures, with limited relief in her pain. She describes the painas burning in nature. It is associated with a tingling feeling throughout her forearm. The pain extends from the outside of the wrist through the last two fingers. The pain is constant throughout the day, and she rates it at a 10/10. The pain is interfering with her ADLs, including her ability todrive. She tells me that she just wishes she could cut the arm off. SOCIAL HISTORY Social History Occupational History Not on file Tobacco Use Smoking status: Every Day Current packs/day: 0.50 Average packs/day: 0.5 packs/day for 49.6 years (24.8 ttl pk-yrs) Types: Cigarettes Start date: 01/12/1975 Smokeless tobacco: Never Vaping Use Vaping status: Some Days Substance and Sexual Activity Alcohol use: Yes Comment: occ Drug use: Yes Types: IV, Marijuana, Heroin Comment: currently marijuana only 07/01/24; clean from heroin for 5 years Sexual activity: Yes Partners: Male PAST MEDICAL HISTORY Past Medical History: Diagnosis Date Asthma Borderline personality disorder (HCC) Cervical cancer (HCC) Chronic prescription opiate use Buprenorphine COPD (chronic obstructive pulmonary disease) (HCC) 05/25/2010 Depressive disorder Diaphragmatic hernia Difficult intravenous access Had to have central line in ER for fluids Gastroparesis 05/25/2010 Generalized anxiety disorder 05/25/2010 GERD (gastroesophageal reflux disease) 05/25/2010 Hyperlipidemia 05/25/2010 Irritable bowel syndrome Opioid use disorder Osteoarthritis Peripheral neuropathy Polysubstance abuse (HCC) TIA (transient ischemic attack) Tobacco use disorder CURRENT MEDICATIONS Current Outpatient Medications: acetaminophen (TYLENOL) 500 mg Oral Tablet, Take 2 Tabs by mouth every 6 hours., Disp: 40 Tab, Rfl:0 albuterol (PROVENTIL) 2.5 mg /3 mL (0.083 %) Inhl Solution for Nebulization, Take 3 mL by nebulization every 4 hours as needed for Wheezing., Disp: 180 mL, Rfl: 2 albuterol-ipratropium (DUO-NEB) 0.5 mg-3 mg(2.5 mg base)/3 mL Inhl Solution for Nebulization, Take 3 mL by nebulization every 6 hours as needed for Wheezing or Shortness of Breath., Disp: 90 mL, Rfl:1 cetirizine (ZYRTEC) 10 mg Oral Tablet, , Disp: , Rfl: cyclobenzaprine (FLEXERIL) 5 mg Oral Tablet, Take 1 Tablet by mouth nightly as needed for Muscle spasms., Disp: 21 Tablet, Rfl: 0 fluticasone furoate-vilanteroL (BREO ELLIPTA) 100-25 mcg/dose Inhl Disk with Device, Inhale 1 Puff into the lungs daily., Disp: 1 Each, Rfl: 5 nalOXone (NARCAN) 4 mg/actuation Nasl [place], Non-Aerosol, 0.1 mL by Nasal route as needed for Opioid Reversal. [place] the contents of one device (0.1mL) into one nostril upon signs of opioid overdose.Call 911. May repeat dose in other nostril if no response within 2-3 minutes., Disp: 1 Each, Rfl: 0 omeprazole (PRILOSEC) 20 mg Oral Capsule, Delayed Release(E.C.), Take 20 mg by mouth as needed., Disp: , Rfl: ondansetron (ZOFRAN) 8 mg Oral Tablet, Take 1 Tablet by mouth every 8 hours as needed., Disp: 30 Tablet, Rfl: 5 oxyCODONE (ROXICODONE) 5 mg Oral Tablet, Take one Tab by mouth every 6-8 hours as needed (PRN), Disp: 28 Tablet, Rfl: 0 oxyCODONE (ROXICODONE) 5 mg Oral Tablet, Take 1 Tablet by mouth every 4 hours as needed for Major Surgery/Trauma (G89.18)., Disp: 28 Tablet, Rfl: 0 promethazine (PHENERGAN) 25 mg Oral Tablet, Take 1 Tablet by mouth every 6 hours as needed for Nausea or Vomiting. for nausea, Disp: 30 Tablet, Rfl: 5 PHYSICAL EXAM General: Well appearing with appropriate affect. No acute distress. Head/Neck: Normocephalic. Range of motion of the neck easy without discomfort. Skin: Skin warm and dry. Color natural. Neuro: Alert and oriented to person, place, and time. Normal neurosensory response to touch. Pulmonary: Chest expansion appears symmetric and unlabored. Cardiovascular: No signs of peripheral edema. Lymphatic: No signs of lymphangitis. Gait: Walks with a non-antalgic gait. Musculoskeletal: RIGHT WRIST: Full ROM with flexion, extension, ulnar and radial deviation, though this seems to cause significant pain. No tenderness at the distal radius. Mild tenderness at the anatomic snuffbox and scaphoid tuberosity, though she admits that this has been ongoing since before surgery. Tenderness throughout the ulnar wrist, both dorsal and volar, and into the hand and last two fingers. No swelling, ecchymosis, erythema, or deformity. Skin is intact. Fingers are warm and well-perfused. Radial pulse 2+. Brisk capillary refill. Sensation intact light touch through the radial, ulnar, and median nerve distribution. Motor intact ain/pin/r/u/m. RIGHT Elbow: No swelling, effusion, ecchymosis, masses, or gross deformity. No gross instability. Nontender with palpation of the humerus, medial epicondyle, lateral epicondyle, olecranon, and radialhead. Full motion, non painful, ROM. No subluxation of the ulnar nerve appreciated. Negative Tinel's sign. Negative compression test. Negative hyperflexion test. IMAGING X-rays 3 Views RIGHT Wrist: Preserved articulation and alignment of the radiocarpal joint and distal radial ulnar joint. Significant arthritis/fusion noted at the STT. No obvious acute fractures or dislocations are identified. ASSESSMENT Right Ulnar Nerve Irritation PLAN I discussed the case with the patient and reviewed treatment options. Prescribed Medrol Dosepack today. Patient was instructed on the safe use of this, particularly to follow the package instructions and to avoid oral NSAIDs while taking this medication. Prescribed diclofenac 75mg BID for 2 weeks. Patient was instructed to avoid other NSAIDs while taking this medication. Placing the patient in a wrist Titan for support and relative rest. Referral to Hand Pool placed. Discussed with the patient that one of our hand and wrist specialistswill review patient's x-rays, and the details of today's office visit, and contact patient to discuss follow up and further management. DME Summary No orders found for display Patience Martinez APRN documented in this encounter Plan of Treatment Scheduled Orders Name Type Priority Associated Diagnoses Orde r Schedule AZ WHO WRIST EXTENSION CONTROL NON MOLDED [place] Charge Routine Irritation of right ulnar nerve Ordered: 08/31/2024 Scheduled Referrals Name Type Priority Associated Diagnoses Order Schedule [facility] HAND POOL COMMUNICATION ORDER Outpatient Referral Routine Irritation of right ulnar nerve Ordered: 08/31/2024 documented as of this encounter Goals Goal Patient Goal Type Associated Problems Recent Progress Patient-Stated? Author Blood Pressure < 140/90 Blood Pressure 142/70(2024 1:45 PM EDT) No Cadence Myers, RN Maintain a healthy diet, exercise regularly and maintain an ideal body weight General No Carlee Mansfield RMA Stay Tobacco Free Lifestyle No Carlee Mansfield RMA documented as of this encounter Visit Diagnoses Diagnosis Irritation of right ulnar nerve- Primary Right hand pain Pain in limb documented in this encounter Care Teams Religious Activities Director Relationship Specialty Start Date End Date No Pcp, Per Patient PCP - General 08/05/24 Jarod Falcon MD Internal Medicine-Gastroenterology 09/16/12 Gonsalo Quarles DPM Yeast Fermentation Attendant-Primary Podiatric Medicine 03/24/14 Darrell Interiano DPM [address] [address] Yeast Fermentation Attendant-Surgery, Foot & Ankle 05/05/14 documented as of this encounter
--- OUTSIDE RECORDS SUMMARY | 2024-08-31 11:30 | XMS_ITS | Encounter Summary ---
Author Organization [facility] Address [address] [place] [address] Care Team Providers Care Senior Ui Software Engineer Name Role Phone Jarod Falcon MD Unavailable [phone] Gonsalo Quarles DPM Unavailable Unavailab Darrell Johansen DPM Unavailable [phone] No Pcp, Per Patient Primary Care Provider Candice fraga Encounter Details Date Type Department Care Team (Latest Contact Info) Description 08/31/2024 11:30 AM EDT Ancillary Procedure [facility] [address] [place] [address] Ru eLy APRN [address] [place] [address] [phone] Right hand pain Social History Tobacco Use [...] Entry Date Author No 12/31/2022 1:59 PM EDT Rosi Mendoza RMA documented in this encounter Plan of Treatment Not on file documented as of this encounter Goals Goal Patient Goal Type Associated Problems Recent Progress Patient-Stated? Author Blood Pressure < 140/90 Blood Pressure 142/70(2024 1:45 PM EDT) No Cadence Myers, WILLIAMS Maintain a healthy diet, exercise regularly and maintain an ideal body weight General No Carlee Mansfield RMA Stay Tobacco Free Lifestyle No Carlee Mansfield RMA documented as of this encounter Procedures Procedure Name Priority Date/Time Associated Diagnosis Comments XR WRIST RIGHT PA LATERAL AND OBLIQUE Routine 08/31/2024 11:21 AM EDT Right hand pain documented in this encounter Results * XR WRIST RIGHT PA LATERAL AND OBLIQUE (08/31/2024 11:21 AM EDT) Narrative [facility] - 08/31/2024 11:29 AM EDT Please see physician's note from office encounter for x-ray imaging result us Patience Martinez ADDRESSER IMG DIAGNOSTIC IMAGING ORDE REMY Final Result [facility] documented in this encounter Visit Diagnoses Diagnosis Right hand pain Pain in limb documented in this encounter Care Teams Senior Ui Software Engineer Relationship Specialty Start Date End Date No Pcp, Per Patient PCP - General 08/05/24 Jarod Falcon MD Internal Medicine-Gastroenterology 09/16/12 Gonsalo Quarles DPM Wire Stockkeeper-Primary Podiatric Medicine 03/24/14 Darrell Interiano DPPoppy [address] [place], [place] [address] [address] Wire Stockkeeper-Surgery, Foot & Ankle 05/05/14 documented as of this encounter
--- OUTSIDE RECORDS SUMMARY | 2024-09-20 14:30 | XMS_ITS | Encounter Summary ---
Author Organization [facility] Address [address] [place] [address] Care Team Providers Care Director Of Infection Prevention Name Role Phone Jarod Falcon MD Unavailable [phone] Gonsalo Quarles DPM Unavailable Unavailab Darrell Johansen DPM Unavailable [phone] No Pcp, Per Patient Primary Care Provider Candice fraga Reason for Visit * Reason Comments Pain Encounter Details Date Type Department Care Team (Late st Contact Info) Description 09/20/2024 2:30 PM EDT [facility] [address] [place] [address] Esvin Pichardo MD [address] [place], [place] [id number] Status post surgery (Primary Dx); Right hand pain Social History [...] documented in this encounter Progress Notes * Esvin Pichardo MD - 09/20/2024 2:30 PM EDT Images from the original note were not included. CC: Recheck right hand History: The patient returns today for follow up of right hand. We did a right cubital tunnel release, endoscopic carpal tunnel release, distal pole scaphoid excision on 07/07/2024. She comes in very angry and argumentative today. She says her hand was wrapped too tight after surgery which is causedan indentation in her hand and all the pain that she is feeling pointing to her hypothenar eminence. She is complaining of decreased use of her small and ring finger. She is complaining of numbness just over the hypothenar eminence and some into the small finger. She said she did have a fall after we took the splint off. She was seen in walk-ins. She comes in today very argumentative. PAST MEDICAL HISTORY: Past Medical History: Diagnosis Date Asthma Borderline personality disorder ([facility]) Cervical cancer ([facility]) Chronic prescription opiate use Buprenorphine COPD (chronic obstructive pulmonary disease) ([facility]) 05/25/2010 Depressive disorder Diaphragmatic hernia Difficult intravenous access Had to have central line in ER for fluids Gastroparesis 05/25/2010 Generalized anxiety disorder 05/25/2010 GERD (gastroesophageal reflux disease) 05/25/2010 Hyperlipidemia 05/25/2010 Irritable bowel syndrome Opioid use disorder Osteoarthritis Peripheral neuropathy Polysubstance abuse ([facility]) TIA (transient ischemic attack) Tobacco use disorder REVIEW OF SYSTEMS: ROS neg except for positives in HPI Physical Exam : Right upper Extremity: Skin: intact with no lesions Incisions well-healed. There is no redness or signs of infection. There is no swelling about the wrist. Where she is saying she has an indentation as the normal indentation of the hypothenar eminenceand I showed her on her other side that there practically equal. There is no true indentation on exam. When touching her fingers she says she feels almost normal in the small and ring finger. She is unwilling to flex down those fingers but there is no clawing. There is no atrophy. They are warm andwell-perfused with good cap refill. There is a negative Tinel's over Guyon's and negative Tinel's at the elbow. There is no subluxation of the ulnar nerve. Just tenderness to palpation around the Piso form. Radiology: No new imaging today as she stormed off before we could get any new x-rays. I did reviewx-rays from walk-ins on 08/31/2024 that show the distal pole the scaphoid has been excised with a little bit of extension of the lunate. Impression: Right wrist pain and continued numbness tingling after cubital tunnel release, endoscopic carpal tunnel release, distal pole scaphoid Plan: She was very argumentative and ending attempted plan she refused to do including any hand therapy, repeat EMG. She just stood up and said she would go find another doctor as you are not willing to help me even though she would refuse any sort of potential treatment. She then walked out. She was unwilling to allow me to try to help figure out why she is continuing to have this pain. She was just accusatory and extremely argumentative. All questions and concerns were addressed today. Patient is in agreement with the plan. Esvin Pichardo MD Hand & Upper Extremity Surgery Please note that this aquatic instructor was created using voice recognition software. Any errors are unintentional and may be due to voice recognition aquatic instructor. documented in this encounter Plan of Treatment [...] as of this encounter Visit Diagnoses Diagnosis Status post surgery- Primary Right hand pain Pain in limb documented in this encounter Care Teams Director Of Infection Prevention Relationship Specialty Start Date End Date No Pcp, Per Patient PCP - General 08/05/24 Jarod Falcon MD Internal Medicine-Gastroenterology 09/16/12 Gonsalo Quarles DPM Class C Driver-Primary Podiatric Medicine 03/24/14 Darrell Interiano DPM [address] [address] Class C Driver-Surgery, Foot & Ankle 05/05/14 documented as of this encounter
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
--- OUTSIDE RECORDS SUMMARY | 2024-10-22 13:39 | XMS_ITS | Clinical Summary ---
Author Organization [facility] Address [address] [facility] [address] [place] [address] Phone Care Team Providers Care Typecasting Machine Operator Name Role Phone Outside, Provider Unavailable [phone] Conditions or Problems No information available. Medications No information available. Medications Administered No information available. Allergies, Adverse Reactions, Alerts No information available. Results No information available. Plan of Care No information available. Procedures No information available. Vital Signs No information available. Immunizations No information available. Advance Directives No information available.
--- OUTSIDE RECORDS SUMMARY | 2024-10-22 13:40 | XMS_ITS | Encounter Summary ---
Author Organization [place] [address] Care Team Providers Care Jet Engine Mechanic Name Role Phone Raúl Franklin MD Primary Care Provider [phone] Jarod Falcon MD Unavailable [phone] Gonsalo Quarles DPM Unavailable Unavailab Darrell Johansen DPM Unavailable [phone] Brittany Wolf MD Primary Care Provider Lee Cardenas NP Primary Care Provider [phone] Holli Evangelista APRN Primary Care Provider Unava Maldonado Greene DO Primary Care Provider [phone] Emmanuel Riley BA, COS Unavailable Unavailabl Emmanuel Evans BA, COS Unavailable Unavailabl Emmanuel Evans BA, COS Unavailable Unavailabl Nan Arias SEED CORN PRODUCTION MANAGER Unavailable Unavailable No Pcp, Per Patient Primary Care Provider Candice fraga Encounter Details Date Type Department Care Team (Latest Contact Info) Description 04/08/2014 Pre-Imaging Procedure Adult Med [address] [place], [place] [id number] Cadence Schroeder, WILLIAMS Gastroparesis (Primary Dx) Social History Tobacco Use Types Packs/Day Years Used Date Smoking Tobacco: Every Day Cigarettes 0.5 35 Started: 08/09/1978; Last attempted to quit: 08/09/2013 Smokeless Tobacco: Never Comments:also uses electroni c cigarette, no longer using nicotrine Alcohol Use Standard Drinks/Week Comments Yes 0 (1 standard drink = 0.6 oz pur e alcohol) rare Comments No Sex and Gender Information Value Date Recorded Sex Assigned at Not on file Legal Sex Female 6:28 PM EDT Gender Identity Not on file Sexual Orientation Not on file documented as of this encounter Plan of Treatment Not on file documented as of this encounter Visit Diagnoses Diagnosis Gastroparesis- Primary documented in this encounter Additional Health Concerns Infection Onset Date Last Indicated Resolved Time C-diff 03/03/2014 03/03/2014 10/10/2015 10:2 4 AM EDT MRSA 12/28/2018 12/28/2018 06/08/2019 2:46 PM EST R/O COVID-19 10/23/2021 10/23/2021 10/23/2021 11:4 9 PM EDT R/O COVID-19 12/07/2021 12/07/2021 12/07/2021 2:58 PM EDT documented as of this encounter Care Teams Jet Engine Mechanic Relationship Specialty Start Date End Date Raúl Franklin MD [address] [place] [address] PCP - General 06/16/09 08/23/15 Brittany Wolf MD [address] [facility] [address] [address] PCP - General Family Medicine 08/24/15 12/20/15 Lee Cintron NP [address] [place] [address] PCP - General Nurse Practitioner-Family 02/01/16 09/02/16 Holli Evangelista APRN [address] [place] [place] [address] PCP - General Nurse Practitioner 09/03/16 04/02/18 Maldonado Murrieta DO [address] [place] [address] PCP - General Family Medicine 04/03/18 04/06/24 No Pcp, Per Patient PCP - General 08/05/24 Jarod Falcon MD [address] [facility] [address] [place] [address] Internal Medicine-Gastroenterol ogy 09/16/12 Gonsalo Quarles, DPM [address] [facility] [address] [place] [address] Grader Meat-Primary Podiatric Medicine 03/24/14 Darrell Interiano DPM [address] [address] Grader Meat-Surgery, Foot & Ankle 05/05/14 Emmanuel Riley BA, COS Case Public Address System Operator 01/06/19 01/06/19 Emmanuel Riley BA, COS Case Public Address System Operator 06/24/19 08/02/19 Emmanuel Riley BA, COS Case Public Address System Operator 11/29/19 04/10/20 Nan Suazo, SEED CORN PRODUCTION MANAGER Respiratory Therapist 12/10/21 2 documented as of this encounter
--- OUTSIDE RECORDS SUMMARY | 2024-10-22 13:40 | XMS_ITS | Encounter Summary ---
Author Organization [place] [address] Care Team Providers Care Christian Counselor Name Role Phone Raúl Franklin MD Primary Care Provider [phone] Jarod Falcon MD Unavailable [phone] Gonsalo Quarles DPM Unavailable Unavailab Darrell Johansen DPM Unavailable [phone] Brittany Wolf MD Primary Care Provider Lee Cardenas NP Primary Care Provider [phone] Holli Evangelista APRN Primary Care Provider Unava Maldonado Greene DO Primary Care Provider [phone] Emmanuel Riley BA, COS Unavailable Unavailabl Emmanuel Evans BA, COS Unavailable Unavailabl Emmanuel Evans BA, COS Unavailable Unavailabl Nan Arias NURSING SURGICAL SERVICES DIRECTOR Unavailable Unavailable No Pcp, Per Patient Primary Care Provider Candice fraga Encounter Details Date Type Department Care Team (Latest Contact Info) Description 08/10/2013 Pre-Imaging Procedure Adult Med [address] [place], [place] [id number] Cadence Schroeder, WILLIAMS 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) Social History Tobacco Use Types Packs/Day Years Used Date Smoking Tobacco: Every Day Cigarettes 0.5 35 Smokeless Tobacco: Never Comments:also uses electroni c cigarette Alcohol Use Standard Drinks/Week Comments No 0 (1 standard drink = 0.6 oz pur e alcohol) Comments No Sex and Gender Information Value Date Recorded Sex Assigned at Not on file Legal Sex Female 6:28 PM EDT Gender Identity Not on file Sexual Orientation Not on file documented as of this encounter Plan of Treatment Not on file documented as of this encounter Visit Diagnoses Diagnosis Mechanical complication of colostomy and enterostomy- Primary documented in this encounter Additional Health Concerns Infection Onset Date Last Indicated Resolved Time C-diff 03/03/2014 03/03/2014 10/10/2015 10:2 4 AM EDT MRSA 12/28/2018 12/28/2018 06/08/2019 2:46 PM EST R/O COVID-19 10/23/2021 10/23/2021 10/23/2021 11:4 9 PM EDT R/O COVID-19 12/07/2021 12/07/2021 12/07/2021 2:58 PM EDT documented as of this encounter Care Teams Christian Counselor Relationship Specialty Start Date End Date Raúl Franklin MD [address] [place] [address] PCP - General 06/16/09 08/23/15 Brittany Wolf MD [address] [address] PCP - General Family Medicine 08/24/15 12/20/15 Lee Cintron NP [address] [place], [place] [id number] PCP - General Nurse Practitioner-Family 02/01/16 09/02/16 Holli Evangelista APRN [address] [place] [address] PCP - General Nurse Practitioner 09/03/16 04/02/18 Maldonado Murrieta DO [address] [place] [address] PCP - General Family Medicine 04/03/18 04/06/24 No Pcp, Per Patient PCP - General 08/05/24 Jarod Falcon MD [address] [facility] [place] [address] Internal Medicine-Gastroenterol ogy 09/16/12 Gonsalo Quarles, DPM [address] [facility] [place] [address] Ballistics Laboratory Gunsmith-Primary Podiatric Medicine 03/24/14 Darrell Interiano, DPM [address] [address] Ballistics Laboratory Gunsmith-Surgery, Foot & Ankle 05/05/14 Emmanuel Riley BA, COS Case Internal Control Specialist 01/06/19 01/06/19 Emmanuel Riley BA, COS Case Internal Control Specialist 06/24/19 08/02/19 Emmanuel Riley BA, COS Case Internal Control Specialist 11/29/19 04/10/20 Nan Suazo, NURSING SURGICAL SERVICES DIRECTOR Respiratory Therapist 12/10/21 2 documented as of this encounter
--- OUTSIDE RECORDS SUMMARY | 2024-10-22 13:40 | XMS_ITS | Clinical Summary ---
Author Organization [facility] Address [address] [place] [address] Phone Care Team Providers Care Abstract Writer Name Role Phone Tiffanie Muhammad APRN Unavailable [phone] Conditions or Problems Problem Name Problem Code Onset Date Status Entry Date Provider Comment Standard Description Annotate Anxiety Disorder 990419584 (SNOMED CT) 12/20 Active 12/24 Tiffanie Muhammad APRN Anxiety disorder Hepatitis C 39909470 (SNOMED CT) 12/20 Active 12/20 Tiffanie Muhammad APRN Viral hepatitis C Anxiety 19519462 (SNOMED CT) 12/20 Active 12/20 Tiffanie Muhammad APRN Anxiety Constipation 35981800 (SNOMED CT) 12/20 Active 12/20 Tiffanie Muhammad APRN Constipation Medications Medication Instructions Start Date Stop Date Generic Name NDC Provider Miralax 17 gram powder in packet Drink 1 packet dissolved in water once a day as needed FOR CONSTIPATION polyethylene glycol 3350 [id number] Tiffanie Muhammad APRN BUSPIRONE HCL 15 MG TABS Take 1 tablet by mouth twice a day buspirone 59068748174 Tiffanie Muhammad APRN Medications Administered No information available. Allergies, Adverse Reactions, Alerts Allergy Name Reaction Description Start Date Severity Statu s Provider HYDROCODONE GI UPSET Moderate Active Aguilarquel ine Jb DHILLONN CODEINE ICHING Moderate Active Ning e Jb KAUR Results No information available. Plan of Care Type Date Detail Pending order T1 Acute Hepatit s Panel Pending Order exclud ed from report: Pending order T1 CBC with diff Pending Order exclud ed from report: Pending order T1 CMP Pending Order exclud ed from report: Pending order T1 Lipase Pending Order exclud ed from report: Procedures Code Procedure Name Date Entry Date [facility] 16674 T1 Acute Hepatits Panel 2020 [facility] 6399 T1 CBC with diff [facility] 17541 T1 CMP [facility] 606 T1 Lipase CPT-3074F Most recent systolic blood pressure <130 mm Hg CPT-3078F Most recent diastoli c blood pressure <80 mm Hg [facility]-[id number] Medication Reconciliation Vital Signs Date Name Value Unit Description BMI (Body Mass Index) 19.82 kg/m2 Bod y Mass Index (Ratio) BP Diastolic 72 mm[Hg] blood pressu re, diastolic BP Systolic 110 mm[Hg] blood pressur e, systolic BSA (Body Surface Area) 1.47 b cassi surface area Heart Rate 75 /min pulse rate Height 62 [in_us] height E&M Height 157.48 cm height in cent imeters E&M Weight Measured 108 [lb_av] weight E& M Weight Measured 108 [lb_av] weight E& M Weight Measured 49.09 kg weight in kilograms E&M Immunizations Vaccine Administration Date Standard Description CVX Co de Dose COVID-19 Vector-NR (MIRIAMN) COVID-19 Vector-NR (MIRIAMN) 212 Unknown Influenza, Seasonal Influenza, Seasonal 141 Unknown Influenza, Seasonal Influenza, Seasonal 141 Unknown Influenza Quad W/Pres Influenza Quad W/Pres 158 Unknown Influenza Quad Inj Influenza Quad Inj 150 Unknown Flu Quad Recomb IM P-Free Flu Quad Recomb IM P-Free 185 Unknow n Hep A, adult Hep A, adult 52 Unknown Hep A, adult Hep A, adult 52 Unknown PPV23 PPV23 33 Unknown PPV23 PPV23 33 Unknown Tdap, Adsorbed Tdap, Adsorbed 115 Unknow n Tdap, Adsorbed Tdap, Adsorbed 115 Unknow n Tdap, Adsorbed Tdap, Adsorbed 115 Unknow n Td (adult), adsorbed Td (adult), adsorbed 09 Unknown Advance Directives No information available.
--- OUTSIDE RECORDS SUMMARY | 2024-10-22 13:40 | XMS_ITS | Clinical Summary ---
Author Organization [facility] Address [address] [place] [address] Care Team Providers Care Log Haul Chain Feeder Name Role Phone Unavailable Primary Care Provider Unavailabl e Encounters Date Type Department Care Team Description 09/23/2024 [facility] [address] [place] [address] Teodoro Paredes, NATASHA Lesion of ulnar nerve, unspecified laterality (Primary Dx) from Last 3 Months Social History Tobacco Use Types Packs/Day Years Used Date Smoking Tobacco: Never Assessed Comments Unknown Sex and Gender Information Value Date Recorded Sex Assigned at Not on file Legal Sex Female 8:22 PM EDT Gender Identity Not on file Sexual Orientation Not on file Plan of Treatment Not on file
--- OUTSIDE RECORDS SUMMARY | 2024-10-22 13:40 | XMS_ITS | Encounter Summary ---
Author Organization [place] [address] Care Team Providers Care Agricultural Labor Camp Manager Name Role Phone Rúal Franklin MD Primary Care Provider [phone] Jarod Falcon MD Unavailable [phone] Gonsalo Quarles DPM Unavailable Unavailab Darrell Johansen DPM Unavailable [phone] Brittany Wolf MD Primary Care Provider Lee Cardenas NP Primary Care Provider [phone] Holli Evangelista APRN Primary Care Provider Unava Maldonado Greene DO Primary Care Provider [phone] Emmanuel Riley BA, COS Unavailable Unavailabl Emmanuel Evans BA, COS Unavailable Unavailabl Emmanuel Evans BA, COS Unavailable Unavailabl Nan Arias ADJUSTER AND INSPECTOR Unavailable Unavailable No Pcp, Per Patient Primary Care Provider Candice fraga Encounter Details Date Type Department Care Team (Late st Contact Info) Description 01/26/2013 Pre-Imaging Procedure Adult Med [address] [place] [id number] Yarely Randall, RT Social History Tobacco Use Types Packs/Day Years Used Date Smoking Tobacco: Every Day Cigarettes 0.5 0.5 Smokeless Tobacco: Never Comments:also uses electroni c [...] documented as of this encounter Visit Diagnoses Not on filedocumented in this encounter Additional Health Concerns Infection Onset Date Last Indicated Resolved Time C-diff 03/03/2014 03/03/2014 10/10/2015 10:2 4 AM EDT MRSA 12/28/2018 12/28/2018 06/08/2019 2:46 PM EST R/O COVID-19 10/23/2021 10/23/2021 10/23/2021 11:4 9 PM EDT R/O COVID-19 12/07/2021 12/07/2021 12/07/2021 2:58 PM EDT documented as of this encounter Care Teams Agricultural Labor Camp Manager Relationship Specialty Start Date End Date Raúl Franklin MD [address] [facility] [place] [address] PCP - General 06/16/09 08/23/15 Brittany Wolf MD [address] [address] PCP - General Family Medicine 08/24/15 12/20/15 Lee Cintron NP [address] [place] [address] PCP - General Nurse Practitioner-Family 02/01/16 09/02/16 Holli Evangelista APRN [address] [place] [address] PCP - General Nurse Practitioner 09/03/16 04/02/18 Maldonado Murrieta DO [address] [place] [address] PCP - General Family Medicine 04/03/18 04/06/24 No Pcp, Per Patient PCP - General 08/05/24 Jarod Falcon MD [address] [place] [address] Internal Medicine-Gastroenterol ogy 09/16/12 Gonsalo Quarles, DPM [address] [place] [address] Hoop Flaring Machine Operator-Primary Podiatric Medicine 03/24/14 Darrell Interiano, DPM [address] [place] [address] Hoop Flaring Machine Operator-Surgery, Foot & Ankle 05/05/14 Emmanuel Riley BA, COS Case Voyage Management System Operator 01/06/19 01/06/19 Emmanuel Riley BA, COS Case Voyage Management System Operator 06/24/19 08/02/19 Emmanuel Riley BA, COS Case Voyage Management System Operator 11/29/19 04/10/20 Nan Suazo, ADJUSTER AND INSPECTOR Respiratory Therapist 12/10/21 2 documented as of this encounter
--- OUTSIDE RECORDS SUMMARY | 2024-10-22 13:40 | XMS_ITS | Encounter Summary ---
Author Organization [facility] Address [address] [place] [address] Care Team Providers Care Manager Commercial Sales Name Role Phone Unavailable Primary Care Provider Unavailabl e Reason for Referral * Consultation (Routine) - Authorized Specialty Diagnoses / Procedures Referred By Contac t Referred To Contact Orthopaedic Surgery Diagnoses Lesion of ulnar nerve, unspecified laterality Teodoro Paredes APRN [address] [place] [address] Phone: tel: fax: Referral ID Status Reason Start Date Expiration Date Visits Requested Visits Authorized [id number] Authorized Specialty Services Required 09/23/2024 03/25/2026 1 1 Encounter Details Date Type Department Care Team (Late st Contact Info) Description 09/23/2024 [facility] [address] [place] [address] Teodoro Paredes APRN [address] [place] [address] Lesion of ulnar nerve, unspecified laterality (Primary Dx) Social History Tobacco Use Types Packs/Day Years Used Date Smoking Tobacco: Never Assessed Comments Unknown Sex and Gender Information Value Date Recorded Sex Assigned at Not on file Legal Sex Female 8:22 PM EDT Gender Identity Not on file Sexual Orientation Not on file documented as of this encounter Plan of Treatment Scheduled Referrals Name Type Priority Associated Diagnoses Orde r Schedule Ambulatory referral to General Orthopaedics Outpatient Referral Routine Lesion of ulnar nerve, unspecified laterality Expected: 09/23/2024 (Approximate), Expires: 03/26/2026 documented as of this encounter Visit Diagnoses Diagnosis Lesion of ulnar nerve, unspecified laterality- Primary documented in this encounter
--- OUTSIDE RECORDS SUMMARY | 2024-10-22 13:40 | XMS_ITS | Clinical Summary ---
Author Organization [facility] Address [address] [place] [address] Phone Care Team Providers Care Laboratory Development Technician Name Role Phone Jarod Falcon MD Unavailable [phone] Gonsalo Quarles DPM Unavailable Unavailab Darrell Johansen DPM Unavailable [phone] No Pcp, Per Patient Primary Care Provider Unavai lable Allergies Active Allergy Reactions Criticality Noted Date Comments Adhesive Rash High 06/26/2012 [place] tape is ok Codeine Nausea And Vomiting High 07/27/2013 Hydrocodone Itching Medium 04/30/2012 Nickel Rash High 04/30/2012 [facility] Medications * This document contains information received from the source organization and may not represent a complete record from that organization. acetaminophen (TYLENOL) 500 mg Oral Tablet Take 2 Tabs by mouth every 6 hours. 40 Tab 0 Active cetirizine (ZYRTEC) 10 mg Oral Tablet 2 Active albuterol-ipratr opium (DUO-NEB) 0.5 mg-3 mg(2.5 mg base)/3 mL Inhl Solution for Nebulization Take 3 mL by nebulization every 6 hours as needed for Wheezing or Shortness of Breath. 90 mL 1 2 Active albuterol (PROVENTIL) 2.5 mg /3 mL (0.083 %) Inhl Solution for NebulizationIndi cations:COPD exacerbation (HCC) Take 3 mL by nebulization every 4 hours as needed for Wheezing. 180 mL 2 2 Active ondansetron (ZOFRAN) 8 mg Oral Tablet Take 1 Tablet by mouth every 8 hours as needed. 30 Tablet 5 3 Active promethazine (PHENERGAN) 25 mg Oral TabletIndication s:Nausea and vomiting, unspecified vomiting type Take 1 Tablet by mouth every 6 hours as needed for Nausea or Vomiting. for nausea 30 Tablet 5 3 Active fluticasone furoate-vilanter oL (BREO ELLIPTA) 100-25 mcg/dose Inhl Disk with DeviceIndication s:Chronic obstructive pulmonary disease, unspecified COPD type (HCC) Inhale 1 Puff into the lungs daily. 1 Each 5 3 Active cyclobenzaprine (FLEXERIL) 5 mg Oral TabletIndication s:Left cervical radiculopathy,Tr apezius strain, left, initial encounter Take 1 Tablet by mouth nightly as needed for Muscle spasms. 21 Tablet 3 Active omeprazole (PRILOSEC) 20 mg Oral Capsule, Delayed Release(E.C.) Take 20 mg by mouth as needed. Active oxyCODONE (ROXICODONE) 5 mg Oral Tablet Take 1 Tablet by mouth every 4 hours as needed for Major Surgery/Trauma (G89.18). 28 Tablet 5 Active oxyCODONE (ROXICODONE) 5 mg Oral TabletIndication s:Status post surgery Take one Tab by mouth every 6-8 hours as needed (PRN) 28 Tablet 5 Active nalOXone (NARCAN) 4 mg/actuation Nasl [place], Non-Aerosol 0.1 mL by Nasal route as needed for Opioid Reversal. [place] the contents of one device (0.1mL) into one nostril upon signs of opioid overdose. Call 911. May repeat dose in other nostril if no response within 2-3 minutes. 1 Each 5 Active ondansetron (ZOFRAN-ODT) 4 mg Oral Tablet, Rapid Dissolve Dissolve 1 Tablet by mouth every 6 hours as needed for Nausea for up to 30 days. 12 Tablet 5 025 Active Active Problems Patient Care Coordination No te Formatting of this note migh t be different from the original. Care gap audit completed by Georgette Constantino RN on 09/12/2023. Collins- 08/10/2015 as expected [place] substance [place] ([place]): Yes 02/14/[address] JONES DO NOT RESCHEDULE WITH HIM N.S. 03/04/16-Devarajan Problem Noted Date Diagnosed Date Cubital tunnel syndrome on right 06/25/2024 Carpal tunnel syndrome of right wrist 06/25/2024 Chronic hepatitis C without hepatic coma 020 Encounter for other specified special examinatio ns 10/27/2019 Medical clearance for psychiatric admission 10/17 Borderline personality disorder 10/27/2019 Mood disorder 10/27/2019 Methamphetamine dependence 10/27/2019 Perianal lesion 04/06/2019 Overview (04/06/2019): Added automatically from request for surgery [id number] Cerebrovascular accident (CV A) due to occlusion of cerebral artery 01/07/2019 Constipation 01/07/2019 Moderate persistent asthma 01/07/2019 Obstructive sleep apnea 01/07/2019 Low TSH level 08/30/2016 Aversion to food 08/27/2016 Essential hypertension 08/26/2016 Severe benzodiazepine use disorder 08/25/2016 Cannabis use disorder, mild, in controlled environment, abuse 08/25/2016 Postoperative anemia 06/29/2016 IV drug user 06/27/2016 Heroin use disorder, severe, in controlled environment, dependence 11/10/2015 Generalized abdominal pain 10/02/2015 Gastroesophageal reflux disease without esophagi tis 11/25/2014 Overview (06/12/2015): GERD: Well controled no dysphagia. Denies dark stools, BPR, and hemopytsis. On omeprazole EGD 2010. Food in stomach o/w normal Tobacco abuse 11/25/2014 Overview (11/25/2014): stop Chronic pain 10/01/2013 Overview (10/01/2013): low back and left leg Chronic obstructive pulmonary disease 05/25/2010 Overview (01/07/2019): COPD: Continues to smoke. Stable on JOSEPH and anticholinergic Generalized anxiety disorder 05/25/2010 Opioid dependence with withdrawal 05/25/2010 Dyslipidemia 05/25/2010 Overview (06/12/2015): Not on meds Acid reflux 05/25/2010 Overview (01/07/2019): Hx of chronic n/v, previously had a G tube, that is now out. Rectal prolapse Resolved Problems Problem Noted Date Diagnosed Date Resolved Date Acute hepatitis C virus infection 01/07/2019 10/28/2019 Chronic depression 01/07/2019 0 Hepatitis C antibody test positive 08/31/2016 10/28/2019 Opioid withdrawal 06/27/2016 03/10/2017 Tobacco use disorder, continuous 11/10/2015 10/27/2019 History of Clostridium difficile 11/25/2014 06/12/2015 Suicide threat or attempt 02/06/2013 Tobacco use disorder 05/25/2010 013 Encounters Date Type Department Care Team Description 10/16/2024 11:48 AM EDT - 10/16/2024 2:36 PM EDT [facility] [address] [facility] [place] [address] Eryn Falcon MD Nausea and vomiting, unspecified vomiting type (Primary Dx) Discharge Disposition: Home or Self Care 09/20/2024 2:30 PM EDT Office Visit [address] [address] Esvin Pichardo MD Status post surgery (Primary Dx); Right hand pain 08/31/2024 11:30 AM EDT Ancillary Procedure [address] [address] Ru Ley APRN Right hand pain 08/31/2024 11:15 AM EDT Office Visit [facility] [address] [employer] [address] Patience Martinez APRN Irritation of right ulnar nerve (Primary Dx); Right hand pain 08/05/2024 2:46 PM EDT - 08/05/2024 5:03 PM EDT Emergency [facility] [address] [place], [place] [address] Kathy Martin MD Closed fracture of multiple ribs of left side, initial encounter (Primary Dx); Fall, initial encounter Discharge Disposition: Home or Self Care 08/05/2024 Travel from Last 3 Months Immunizations Immunization Administration Dates Next Due DT 10/29/2006 Hepatitis A, Adult 03/30/2019,03/17/2018 Influenza Seasonal Injectable 01/25/2009, 007 Influenza Vaccine Quadrivalent 01/26/2014 Influenza Vaccine, Unspecifi ed Formulation 01/18/2012,01/16/2011 Influenza Virus Vaccine Quad rivalant, Flublok 04/09/2019 Pneumococcal Polysaccharide 23 Valent 02/05/2012 ,01/16/2011 Td (Adult), Absorbed 08/04/2007 Tdap 12/28/2018, 0,05/19/2009,01/25 Surgical History Surgery Date Site/Laterality Comments HYSTERECTOMY, TOTAL ABDOMINAL UPPER GASTROINTESTINAL ENDOSCOPY 08/13/2010 APPENDECTOMY LAPAROSCOPY SOFT TISSUE BIOPSY 10/10/2015 N/A EXCISION ABDOMINAL WALL FISTULA ; Surgeon: Poppy Randolph MD; Location: [facility]; Service: General RECTAL PROLAPSE REPAIR 06/26/2016 Abdomen/N/A OPEN ABDOMINAL RECTOPEXY WITH RIGID PROCTOSCOPY ; Surgeon: Thierry Chapin MD; Location: [facility]; Service: General SIGMOIDOSCOPY 06/26/2016 Surgeon: Thierry Chapin MD; Location: [facility]; Service: General BLADDER SURGERY BLADDER SLING FOR INCONTINENCE HEMORRHOID SURGERY 06/09/2019 Perineum/N/A EXAM UNDER ANESTHESIA ANORECTUM WITH BIOPSY, EXCISION OF PERIANAL LESION ; Surgeon: Thierry Chapin MD; Location: [facility]; Service: General RECTAL SURGERY 06/09/2019 Buttocks/N/A Surgeon: Thierry Chapin MD; Location: [facility]; Service: General GASTROSTOMY TUBE PLACEMENT ULNAR TUNNEL RELEASE 07/07/2024 Arm/Elbow/Right right excision of distal pole scaphoid, right Cubital Tunnel release, right endoscopic carpal tunnel; Surgeon: Esvin Pichardo MD; Location: [facility]; Service: Orthopedics CARPAL TUNNEL RELEASE 07/07/2024 Hand/Wrist/Right .; Surgeon: Esvin Pichardo MD; Location: [facility]; Service: Orthopedics Medical History Medical History Date Comments Generalized anxiety disorder 05/25/2010 Hyperlipidemia 05/25/2010 Gastroparesis 05/25/2010 Irritable bowel syndrome Diaphragmatic hernia Peripheral neuropathy Depressive disorder TIA (transient ischemic attack) GERD (gastroesophageal reflux disease) 1 COPD (chronic obstructive pu lmonary disease) (HCC) 05/25/2010 Cervical cancer (HCC) Osteoarthritis Opioid use disorder Chronic prescription opiate use Buprenorphine Tobacco use disorder Polysubstance abuse (HCC) Borderline personality disorder (HCC) Asthma Difficult intravenous access Had to have central line in ER for fluids Family History Medical History Relation Name Comments Lung Cancer Father Diabetes Mother Heart Disease Mother Irritable Bowel Syndrome Mother Anesth Problems Neg Hx Breast Cancer Neg Hx Colon Cancer Neg Hx Relation Name Status Comments Brother 2 Alive Father Mother Sister 1 Alive Social History Tobacco Use Types Packs/Day Years Used Date Smoking Tobacco: Every Day Cigarettes 0.5 49.8 Started: 01/12/1975 Smokeless Tobacco: Never Tobacco Cessation:Ready to Q uit: No; Counseling Given: Yes Alcohol Use Standard Drinks/Week Comments Yes 0 [...] on file Sexual Orientation Not on file Obstetrics History Para Term AB IAB SAB Ectopic Multiple Livin g Live Births 2 2 Date Outcome GA Total Labor Labor/2nd/3rd Weight Sex Type Anes PTL Christelle A1 A5 Name Clin Last Filed Vital Signs Vital Sign Reading [...] Mass Index 16.46 10/16/2024 11:44 AM EDT Plan of Treatment Health Maintenance Due Date Last Done Comments Hepatitis B Vaccine (1 of 3 - 19+ 3-dose series) 01/11/1984 FIT 2010 Virtual Colonography 2010 Pneumococcal Vaccine 50+ (2 of 2 - PCV) 02/04/2013 02/05/2012, 01/16/2011 Breast Cancer Screening 08/12/2014 08/13/19 13 (Previously completed) Zoster (1 of 2) 2015 Cologuard 05/14/2021 05/14/2018 Sigmoidoscopy 06/26/2021 06/26/2016 Low Dose Lung Cancer Screening 10/24/2022 10/24/2021 Wellness Exam Medicare 01/19/2023 01/18/2022 COVID-19 Vaccine ( - season) 2024 Influenza Vaccine (Season Ended) 2025 04/09/2019, 02/22/2019, 01/26/2014, Additional history exists Colon Cancer Screening 06/03/2026 Colonoscopy 06/03/2026 06/03/2016 DTaP/TDaP/Td (7 - Td or Tdap) 12/28/2028 12/28/2018, 01/01/2010, 05/19/2009, Additional history exists Meningococcal B Vaccine Aged Out No l onger eligible based on patient's age to complete this topic Goals Goal Patient Goal Type Associated Problems Recent Progress Patient-Stated? Author Blood Pressure < 140/90 Blood Pressure 142/70(2024 1:45 PM EDT) No Cadence Myers, RN Maintain a healthy diet, exercise regularly and maintain an ideal body weight General No Carlee Mansfield RMA Stay Tobacco Free Lifestyle No Carlee Mansfield RMA Medical Devices Implanted Type Area Accounting Software Specialist Device Identifier Shelf Expiration Date Model / Serial / Lot Bladder Sling Procedures Procedure Name Priority Date/Time Associated Diagnosis Comments SCANNED EKG 10/18/2024 12:55 PM EDT URINALYSIS REFLEX STAT 10/16/2024 2:0 8 PM EDT UA W/REFLEX TO CULTURE STAT 2:08 PM EDT EXTRA VILLANUEVA URINE CX STAT 10/16/2024 2 :08 PM EDT EK EKG 12 LEAD STAT 10/16/2024 12:36 PM EDT LIPASE LEVEL STAT 10/16/2024 12:16 PM EDT COMPREHENSIVE METABOLIC PANEL STAT 10/16/2024 12:16 PM EDT CBC STAT 10/16/2024 12:16 PM EDT XR WRIST RIGHT PA LATERAL AND OBLIQUE Routine 08/31/2024 11:21 AM EDT Right hand pain SCANNED EKG 08/06/2024 9:57 AM EDT XR RIBS LEFT W PA CHEST AUDREY 08/05/2024 3:54 PM EDT EK EKG 12 LEAD STAT 08/05/2024 3:[address] ANGIOGRAM PULMONARY W CONTRAST STAT 10/24/2021 12:40 AM EDT COLOGUARD Routine 05/14/2018 3:22 PM EST Screening for colon cancer COLONOSCOPY Routine 06/03/2016 Screening for colon cancer from Last 3 Months or Most Recently Relevant to Health Maintenance Results * SCANNED EKG (10/18/2024 12:55 PM EDT) Only the most recent of2 resultswithin the time period is included. Anatomical Region Laterality Modality Other 10/18/2024 12:5 5 PM EDT us Unknown Provider IMG ECG ORDERABLES Final Result * (ABNORMAL) URINALYSIS REFLEX (10/16/2024 2:08 PM EDT) UA Color Yellow 10/16/2024 2:19 PM EDT [facility] UA Appear Clear Clear 10/16/2024 2:19 PM EDT [facility] UA Glucose 100(A) Negative mg/dL 10/16/2024 2:19 PM EDT [facility] UA Ketones 1+ (15 mg/dL)(A) Negative mg/dL 10/16/2024 2:19 PM EDT [facility] UA Blood Negative Negative 10/16/2024 2:19 PM EDT [facility] UA pH 8.0 5.0 - 8.0 pH 10/16/2024 2:19 PM EDT [facility] UA Protein Trace(A) Negative mg/dL 10/16/2024 2:19 PM EDT [facility] UA Urobilinogen 0.2 <=1 mg/dL 2:19 PM EDT [facility] UA Bili Negative Negative 10/16/2024 2:19 PM EDT [facility] UA Nitrite Negative Negative 10/16/2024 2:19 PM EDT [facility] UA Leuk Est Negative Negative 10/16/2024 2:19 PM EDT [facility] UA Spec Grav 1.015 1.001 - 1.035 no units 10/16/2024 2:19 PM T [facility] Comment:Reference range johnny d for random specimens only. UA RBC 1 0 - 3 /HPF 10/16/2024 2:19 PM EDT [facility] UA Squam Epi Rare /LPF 10/16/2024 2:19 PM EDT [facility] Urine STRUCTURE OF URINARY TRACT PROPER / Unknown 10/16/2024 2:08 PM EDT 10/16/2024 2:11 PM EDT Eryn Falcon MD URINE ORDERABLES Final Result Performing Organization Address [facility] de Phone Number [facility] [address] [place] [address] * EXTRA VILLANUEVA URINE CX (10/16/2024 2:08 PM EDT) Urine STRUCTURE OF URINARY TRACT PROPER / Unknown 10/16/2024 2:08 PM EDT 10/16/2024 2:11 PM EDT Eryn Falcon MD MICROBIOLOGY - GENERAL ORDERABL ES Final Result Performing Organization Address [facility] de Phone Number [facility] [address] [place] [address] * EK EKG 12 LEAD (10/16/2024 12:36 PM EDT) Only the most recent of2 resultswithin the time period is included. Anatomical Region Laterality Modality Electrocardiogra phy 10/16/2024 12:4 5 PM EDT Impressions 10/16/2024 2:24 PM EDT [facility] Test Date: 2024-10-16 Pat Name: NOAM GUY Department: DEPID Room: Gender: Female Early Years Teacher: Naveed : 1965 Requested By: ERYN Balderrama Order Number: [id number] Reading MD: Anup Chinchilla Measurements Intervals [place] Rate: 55 P: 71 NV: 152 QRS: 85 QRSD: 89 T: 80 QT: 428 QTc: 409 Interpretive Statements SINUS BRADYCARDIA WITH SINUS ARRHYTHMIA POSSIBLE RIGHT VENTRICULAR CONDUCTION DELAY Electronically Signed On 10-16-2024 14:24:19 EDT by Anup Chinchilla Narrative Procedure Note Anup Chinchilla MD - 10/16/2024 IMPRESSION [facility] Test Date: 2024-10-16 Pat Name: NOAM GUY Department: DEPID Room: 08 Gender: Female Early Years Teacher: Naveed : 1965 Requested By: ERYN Balderrama Order Number: [id number] Reading MD: Anup Chinchilla Measurements Intervals [place] Rate: 55 P: 71 NV: 152 QRS: 85 QRSD: 89 T: 80 QT: 428 QTc: 409 Interpretive Statements SINUS BRADYCARDIA WITH SINUS ARRHYTHMIA POSSIBLE RIGHT VENTRICULAR CONDUCTION DELAY Electronically Signed On 10-16-2024 14:24:19 EDT by Anup Chinchilla us Eryn Falcon MD IMG ECG ORDERABLES Final Result * (ABNORMAL) CBC (10/16/2024 12:16 PM EDT) WBC 13.8(H) 3.7 - 10.3 x10(3)/mcL 10/16/2024 12:21 PM EDT [facility] RBC 4.30 3.90 - 5.20 x10(6)/mcL 10/16/2024 12:21 PM EDT [facility] Hgb 13.0 11.2 - 15.7 g/dL 10/16/2024 12:21 PM EDT [facility] Hct 40.2 34.0 - 45.0 % 10/16/2024 12:21 PM EDT [facility] MCV 93.5 80.0 - 100.0 fL 10/16/2024 12:21 PM EDT [facility] MCH 30.2 26.0 - 34.0 pg 10/16/2024 12:21 PM EDT [facility] MCHC 32.3 30.7 - 35.5 g/dL 10/16/2024 12:21 PM EDT [facility] RDW 13.7 <=14.9 % 10/16/2024 12:21 PM EDT [facility] Platelet 265 155 - 369 x10(3)/mcL 10/16/2024 12:21 PM EDT [facility] MPV 9.1 8.8 - 12.5 fL 10/16/2024 12:21 PM [facility] Blood VENOUS BLOOD / Unknown Venipuncture / Unknown 10/16/2024 12:16 PM EDT 10/16/2024 12:17 PM EDT Eryn Falcon MD HEMATOLOGY ORDERABLES Final Res ult Performing Organization Address [facility] Co de Phone Number [facility] [address] [place] [address] * LIPASE LEVEL (10/16/2024 12:16 PM EDT) Lipase Lvl 25 13 - 60 U/L 10/16/2024 12:40 PM EDT [facility] Blood VENOUS BLOOD / Unknown Venipuncture / Unknown 10/16/2024 12:16 PM EDT 10/16/2024 12:17 PM EDT Eryn Falcon MD CHEMISTRY ORDERABLES Final Resu lt Performing Organization Address [facility] de Phone Number [facility] [address] [place] [address] * (ABNORMAL) COMPREHENSIVE METABOLIC PANEL (10/16/2024 12:16 PM EDT) Sodium 142 136 - 145 mmol/L 10/16/2024 12:40 PM EDT [facility] Potassium 4.2 3.5 - 5.0 mmol/L 10/16/2024 12:40 PM EDT [facility] Chloride 102 98 - 107 mmol/L 10/16/2024 12:40 PM EDT [facility] Total CO2 22 22 - 29 mmol/L 10/16/2024 12:40 PM EDT [facility] Anion Gap 18(H) 7 - 16 mmol/L 10/16/2024 12:40 PM EDT [facility] Calcium 9.3 8.6 - 10.4 mg/dL 10/16/2024 12:40 PM EDT [facility] Glucose Lvl 166(H) 70 - 99 mg/dL 10/16/2024 12:40 PM EDT [facility] BUN 12 6 - 20 mg/dL 10/16/2024 12:40 PM EDT [facility] Creatinine 0.68 0.51 - 1.30 mg/dL 10/16/2024 12:40 PM EDT [facility] Albumin 4.4 3.5 - 5.2 gm/dL 10/16/2024 12:40 PM EDT [facility] Total Protein 7.0 6.4 - 8.3 gm/dL 10/16/2024 12:40 PM EDT [facility] Bili Total 0.5 0.2 - 1.3 mg/dL 10/16/2024 12:40 PM EDT [facility] ALT 8 <=41 U/L 10/16/2024 12:40 PM EDT [facility] AST 17 <=40 U/L 10/16/2024 12:40 PM EDT [facility] Alk Phos 61 36 - 123 U/L 10/16/2024 12:40 PM EDT [facility] eGFR (CKD-EPIcr 2020) 100 >=60 mL/min/1.7 3 m2 10/16/2024 12:40 PM EDT [facility] Comment:Estimated GFR was ca lculated using the CKD-EPIcr (2020) equation refit without race. The equation is recommended by the National [employer] - [place] [employer]ph[employer] Task Force. Blood VENOUS BLOOD / Unknown Venipuncture / Unknown 10/16/2024 12:16 PM EDT 10/16/2024 12:17 PM EDT us Eryn Falcon MD CHEMISTRY ORDERABLES Final Resu lt [facility] [address] [place] [address] * XR WRIST RIGHT PA LATERAL AND OBLIQUE (08/31/2024 11:21 AM EDT) Narrative ORTHOCINCY - 08/31/2024 11:29 AM EDT Please see physician's note from office encounter for x-ray imaging result us Patience Martinez TREASURY AGENT IMG DIAGNOSTIC IMAGING ORDE REMY Final Result ORTHOCINCY * XR RIBS LEFT W PA CHEST (08/05/2024 3:54 PM EDT) Anatomical Region Laterality Modality Chest Radiographic Yadira ging 08/05/2024 3:54 PM EDT Impressions 08/05/2024 3:58 PM EDT Minimally displaced fractures of the fifth sixth and seventh ribs are present on the LEFT. No pneumothorax. Narrative 08/05/2024 3:58 PM EDT XR RIBS LEFT W PA CHEST Clinical: -fall, reproducible left sided chest wall pain Procedure Note Francis Urbano MD - 08/05/2024 XR RIBS LEFT W PA CHEST Clinical: -fall, reproducible left sided chest wall pain IMPRESSION: Minimally displaced fractures of the fifth sixth and seventh ribs arepresent on the LEFT. No pneumothorax. Alyssa CRUZ IMG DIAGNOSTIC IMAGING ORDERAB LES Final Result * CT ANGIOGRAM PULMONARY W CONTRAST (10/24/2021 12:40 AM EDT) Anatomical Region Laterality Modality Chest Computed Tomogra phy 10/24/2021 12:4 0 AM EDT Impressions 10/24/2021 12:53 AM EDT 1. The pulmonary arteries contain no filling defects to indicate an acute or chronic pulmonary embolism. 2. Mild infectious appearing opacities at the left lung base. 3. Incidental findings as described Note: Radiology results need to be interpreted within a comprehensive clinical context. If you have questions about the radiology report, please contact the office of the ordering clinician. Narrative 10/24/2021 12:53 AM EDT CLINICAL HISTORY: -PE suspected, high pretest prob. Shortness of breath COMPARISON: Neck CT from 01/12/2016. TECHNIQUE: CT ANGIOGRAM PULMONARY W CONTRAST on 10/24/2021 12:40 AM. 75 mL of intravenous Isovue-370 was administered. For optimization of anatomic evaluation, advanced off-line post-processing was performed at an independent workstation by the physician and/or technologist. This included multi-planar reconstruction and/or maximum intensity projections. Dose 1 : CT DLP Total : 155.6 mGycm DLP Spiral Max : 149.2 mGycm Maximum CTDI Vol : 11.7 mGy SSDE : 17.082 mGy SSDE Diameter : 25.4 cm SSDE Source : [employer] FINDINGS: The pulmonary arteries contain no filling defects to indicate an acute or chronic pulmonary embolism. There is atelectasis at the lung bases with faint airspace opacities in the left lower lobe. Moderate emphysema is noted. The tracheobronchial tree is patent. There is no pneumothorax or pleural effusion. The heart size and pulmonary vascularity are normal and there is no pericardial effusion. Coronary artery calcifications are noted. The aorta and pulmonary arteries are normal in caliber. All thoracic lymph nodes are less than 1 cm in the short axis. Right thyroid cysts are unchanged. The esophagus is normal and there is no hiatal hernia. There is median arcuate ligament compression of the celiac axis. The bony thorax is unremarkable. Procedure Note Nato Dunn MD - 10/24/2021 CLINICAL HISTORY: -PE suspected, high pretest prob. Shortness of breath COMPARISON: Neck CT from 01/12/2016. TECHNIQUE: CT ANGIOGRAM PULMONARY W CONTRAST on 10/24/2021 12:40 AM. 75 mLof intravenous Isovue-370 was administered. For optimization of anatomic evaluation, advanced off-line post-processing was performed at anindependent workstation by the physician and/or technologist. This includedmulti-planar reconstruction and/or maximum intensity projections. Dose 1 : CT DLP Total : 155.6 mGycm DLP Spiral Max : 149.2 mGycm Maximum CTDI Vol : 11.7 mGy SSDE : 17.082 mGy SSDE Diameter : 25.4 cm SSDE Source : [employer] FINDINGS: The pulmonary arteries contain no filling defects to indicate anacute or chronic pulmonary embolism. There is atelectasis at the lung bases with faint airspace opacities inthe left lower lobe. Moderate emphysema is noted. The tracheobronchial tree ispatent. There is no pneumothorax or pleural effusion. The heart size and pulmonary vascularity are normal and there is nopericardial effusion. Coronary artery calcifications are noted. The aorta andpulmonary arteries are normal in caliber. All thoracic lymph nodes are less than 1cm in the short axis. Right thyroid cysts are unchanged. The esophagus is normal and there isno hiatal hernia. There is median arcuate ligament compression of the celiacaxis. The bony thorax is unremarkable. IMPRESSION: 1. The pulmonary arteries contain no filling defects to indicate an acuteor chronic pulmonary embolism. 2. Mild infectious appearing opacities at the left lung base. 3. Incidental findings as described Note: Radiology results need to be interpreted within a comprehensiveclinical context. If you have questions about the radiology report, please contactthe office of the ordering clinician. Raúl Davila MD IM CT ORDERABLES Final Resu lt * COLOGUARD (05/14/2018 3:22 PM EST) COLOGUARD CLINICAL REPORT Negative Not Applicable City Notes, [facility] Comment: A negative result indicates a low likelihood that a colorectal cancer (CRC) or an advanced adenoma (adenomatous polyps with more advanced pre-malignant features) is present. The chance that a person with a negative Cologuard test has a colorectal cancer is less than 1 in 1500 (negative predictive value >99.9%) or has an advanced adenoma is less than 5.3% (negative predictive value 94.7%). These data are based on a prospective cross-sectional screening study of 10,000 individuals at average risk for colorectal cancer who were screened with both Cologuard and colonoscopy. (Sharynialrommel T. et al, N Engl J Med 2014;370(14):4075-2325) COLOGUARD RE-SCREENING RECOMMENDATION: Periodic routine colorectal cancer screening is an important part of preventive healthcare for asymptomatic persons at average risk for colorectal cancer. Following a negative Cologuard result, the [place] [employer] Society and U.S. Multi-Society Task Force screening guidelines recommend a Cologuard re-screening interval of 3 years. References: [place] [employer] (ACS). Colorectal cancer prevention and early detection. [place], [place]: [place] [employer]; [updated 2015Sep 09]. https://www.cancer.org/cancer/ovpgp-lzdmud-hxrpjc/grfawgtjz-hwjsudmbl-jrmlqhs/ac s-rec ommendations.html. Accessed January 16, 2018; Rachid BONDS, Lissett ALCARAZ, Shobha DHILLON, Colorectal Cancer Screening: Recommendations for Physicians and Patients from the U.S. Multi-Society Task Force on Colorectal Cancer Screening, Am J Gastroenterology 2017; 112:4902-6754. Test Type: Composite algorithmic analysis of stool DNA-biomarkers with hemoglobin immunoassay. Quantitative values of individual biomarkers are not reportable and are not associated with individual biomarker result reference ranges. Precautions and Limitations: Cologuard is intended for colorectal cancer screening of adults of either sex, 50 years or older, who are at typical average-risk for colorectal cancer. A negative Cologuard test result does not guarantee the absence of colorectal cancer or advanced adenoma (pre-cancer). Patients with a negative Cologuard test result should be advised to continue participating in a colorectal cancer screening program. Cologuard may produce a positive result, even though a colonoscopy may not find colorectal cancer or precancerous polyps. The performance of Cologuard has been established in a cross sectional study (i.e., single point in time). Performance has not been evaluated in adults who have been previously tested with Cologuard or in patients less than 50 years of age. Cologuard has been approved for use by the U.S. FDA. Cologuard performance data in a 10,000 patient pivotal study using colonoscopy as the reference method can be accessed at the following location: www.cloud.IQ/results. Additional description of the Cologuard test process, warnings and precautions can be found at www.cologuardtest.com. Rx Only. Stool specimen (specimen) 05/14/2018 3:22 PM EST 05/16/2018 12:20 PM EST Maldonadoalessio Murrieta DO EXACT SCIENCE - ORDERABLES Aida l Result Performing Organization Address [facility] Co de Phone Number [employer] [address] [place] [address] * COLONOSCOPY (06/03/2016) 06/03/2016 Impressions SEP OFFICE - 06/03/2016 See report [facility] Provider HEALTH MAINTENANCE Final Res ult Performing Organization Address City/State/[facility] Co de Phone Number SEP OFFICE from Last 3 Months or Most Recently Relevant to Health Maintenance Insurance HMO MEDICARE [place] [facility] [place] [address] [place] [id number] [facility] [place]ICARE [place] HMO MEDICARE MR [place] HMO [facility] [place] Advance Directives For more information, please contact: [phone] * Full Code (Latest Code Status on File) Date Activated Date Inactivated Comments 08/25/2016 11:50 AM 08/31/2016 2:11 PM * Full Code Date Activated Date Inactivated Comments 06/27/2016 12:27 PM 06/30/2016 8:17 PM * Full Code Date Activated Date Inactivated Comments 11/09/2015 3:34 PM 11/11/2015 12:10 AM Care Teams Laboratory Development Technician Relationship Specialty Start Date End Date No Pcp, Per Patient PCP - General 08/05/24 Jarod Falcon MD Internal Medicine-Gastroenterology 09/16/12 Gonsalo Quarles DPM Gas Meter Checker-Primary Podiatric Medicine 03/24/14 Darrell Interiano DPM [address] [address] Gas Meter Checker-Surgery, Foot & Ankle 05/05/14
--- OUTSIDE RECORDS SUMMARY | 2024-10-22 13:40 | XMS_ITS | Encounter Summary ---
Author Organization [place] [address] Care Team Providers Care Perishable Freight Inspector Name Role Phone Raúl Franklin MD Primary Care Provider [phone] Jarod Falcon MD Unavailable [phone] Gonsalo Quarles DPM Unavailable Unavailab Darrell Johansen DPM Unavailable [phone] Brittany Wolf MD Primary Care Provider Lee Cardenas NP Primary Care Provider [phone] Holli Evangelista APRN Primary Care Provider Unava Maldonado Greene DO Primary Care Provider [phone] Emmanuel Riley BA, COS Unavailable Unavailabl Emmanuel Evans BA, COS Unavailable Unavailabl Emmanuel Evans BA, COS Unavailable Unavailabl Nan Arias COTTONSEED MEAT PRESSER Unavailable Unavailable No Pcp, Per Patient Primary Care Provider Candice fraga Encounter Details Date Type Department Care Team (Late st Contact Info) Description 08/23/2013 Pre-Imaging Procedure Adult Med [address] [id number] Yarely Randall, RT Social History Tobacco Use Types Packs/Day Years Used Date Smoking Tobacco: Former Cigarettes 0.5 35 0 08/09/1978 - 08/09/2013 Smokeless Tobacco: Never Comments:also uses electroni [...] documented as of this encounter Care Teams Perishable Freight Inspector Relationship Specialty Start Date End Date Raúl Franklin MD [address] [place] [id number] PCP - General 06/16/09 08/23/15 Brittany Wolf MD [address] [facility] [address] [address] PCP - General Family Medicine 08/24/15 12/20/15 Lee Cintron NP [address] [place] [address] PCP - General Nurse Practitioner-Family 02/01/16 09/02/16 Holli Evangelista APRN [address] [place] [address] PCP - General Nurse Practitioner 09/03/16 04/02/18 Maldonado Murrieta DO [address] [place] [address] PCP - General Family Medicine 04/03/18 04/06/24 No Pcp, Per Patient PCP - General 08/05/24 Jarod Falcon MD [address] [facility] [place] [address] Internal Medicine-Gastroenterol ogy 09/16/12 Gonsalo Quarles, DPM [address] [facility] [place] [address] Certified Recreational Therapist-Primary Podiatric Medicine 03/24/14 Darrell Interiano, DPM [address] [address] Certified Recreational Therapist-Surgery, Foot & Ankle 05/05/14 Emmanuel Riley BA, COS Case Boiler House Inspector 01/06/19 01/06/19 Emmanuel Riley BA, COS Case Boiler House Inspector 06/24/19 08/02/19 Emmanuel Riley BA, COS Case Boiler House Inspector 11/29/19 04/10/20 Nan Suazo, COTTONSEED MEAT PRESSER Respiratory Therapist 12/10/21 2 documented as of this encounter
--- OUTSIDE RECORDS SUMMARY | 2024-10-22 13:40 | XMS_ITS | Encounter Summary ---
Author Organization [facility] Address [address] [place] [address] Care Team Providers Care Vp Biology Name Role Phone Jarod Falcon MD Unavailable [phone] Gonsalo Quarles DPM Unavailable Unavailab Darrell Johansen DPM Unavailable [phone] No Pcp, Per Patient Primary Care Provider Candice fraga Encounter Details Date Type Department Care Team (Late st Contact Info) Description 07/12/[address] [phone] Esvin Pichardo MD [address] [place] [id number] Social History Tobacco Use Types Packs/Day Years [...] Answer Date of Assessment Author No Risk 08/05/2024 2:49 PM EDT Kathy Solomon RN * [facility] [place] Suicide Severity Rating Scale (Q shift for moderate and high) Question Answer Date of Assessment Author 1. In the past month, have y ou wished you were or wished you could go to sleep and not wake up? 0 08/05/2024 2:49 PM EDT Kathy Solomon RN 2. In the past month, have y ou actually had any thoughts of killing yourself? (If no, skip to question 6) 0 08/05/2024 2:49 PM EDT Kathy Solomon RN 6. Have you ever done anythi ng, started to do anything, or prepared to do anything to end your life? 0 08/05/2024 2:49 PM EDT Kathy Solomon RN documented as of this encounter Mental Status * Because of a physical, mental or emotional condition, does this person have serious difficulty concentrating, remembering or making decisions? Answer Entry Date Author No 12/31/2022 1:59 PM EDT Rosi Mendoza RMA documented in this encounter Miscellaneous Notes * Telephone Encounter - Shelby Wilson Athletic Trainer - 07/12/2024 10:13 AM EST Original request was denied because it required a second sign. New Refill sent to Pichardo to sign. * Telephone Encounter - Ashley Patel, Clerical Staff - 07/12/2024 10:05 AM EST Pt called to get a refill on her pain medication documented in this encounter Plan of Treatment [...] Diagnoses Not on filedocumented in this encounter Care Teams Vp Biology Relationship Specialty Start Date End Date No Pcp, Per Patient PCP - General 08/05/24 Jarod Falcon MD Internal Medicine-Gastroenterology 09/16/12 Gonsalo Quarles DPM Wind Operations Manager-Primary Podiatric Medicine 03/24/14 Darrell Interiano DPM [address] [address] Wind Operations Manager-Surgery, Foot & Ankle 05/05/14 documented as of this encounter
--- NOTE | 2024-10-22 13:45 | MR_ITS ---
FINAL REPORT CLINICAL HISTORY: RT elbow pain hx of surgery in jun 2024 numbness in 4and 5th digits after surgery COMPARISON: None FINDINGS: Multiplanar and multisequence imaging of the right elbow was obtained without contrast. BONES: There is no acute fracture, contusion or pathologic marrow replacement. There is a small subchondral T2 abnormality in the capitellum, with a small osteochondral lesion suspected. An overlying cartilage defect is noted. Joint space is preserved. A small amount of joint fluid is present. LIGAMENTS: The radial collateral ligament and lateral ulnar collateral ligament are intact. The ulnar collateral ligament proper is intact and there is no fracture of the sublime tubercle. TENDON/MUSCLES: The common extensor tendon is normal in size and signal intensity at its insertion on the lateral epicondyle. The common flexor tendon is normal in size and signal intensity at its insertion on the medial epicondyle. The triceps tendon, biceps tendon, and brachialis tendon are intact and within normal limits. Signal intensity within the muscles themselves is normal. OTHER SOFT TISSUES: There is abnormal signal along the posterior medial epicondyle, as well as abnormal signal in the ulnar nerve. There may be thickening of the retinaculum, which may cause ulnar neuropathy. IMPRESSION: Small subchondral abnormality in the capitellum, and a small osteochondral lesion is suspected. An overlying cartilage defect is present at this location. Abnormal signal along the posterior medial epicondyles and abnormal signal in the ulnar nerve. Thickening of the retinaculum may cause ulnar neuropathy. Reviewed, Interpreted and Dictated by Porsche Vasquez MD Transcribed by Joy Boone Authenticated and [facility]
--- OUTSIDE RECORDS SUMMARY | 2024-10-22 14:39 | XMS_ITS | CCD ---
Author Organization Unknown Care Team Providers Care Caseworker Name Role Phone Non Engaged, [facility] Primary Care Provider Unav ailable Unavailable Chronic Care Management Unavaila ble Summary Purpose DataExchange Insurance Providers Payer name Policy type / Coverage type Covered libertarian ID Effective Begin Date Effective End Date MEDICARE [place] [id number] Unknown Unknown NO COPAY HOLD [id number] Unknown Unknown Family History Family History data not found Medication Administered No Medication Administered data Reason For Visit No Reason For Visit data Medical Equipment No Medical Equipment data Advance Directives No Advance Directive data
== END 2024-10-22 23:59 | disposition home or self-care (01) ==
LOC: RAD 13:38
PROVIDERS: PCP Nurse Practitioner Family; Visit Provider Family Medicine
DX: M94.9 Disorder of cartilage, unspecified (principal); R93.6 Abnormal findings on diagnostic imaging of limbs; G56.20 Lesion of ulnar nerve, unspecified upper limb
CPT/HCPCS: 73221

== ENCOUNTER 2024-12-23 16:20 | Outpatient (CLI) | payer MEDICARE, OTHER, SELFPAY ==
--- OUTSIDE RECORDS SUMMARY | 2024-11-29 10:54 | XMS_ITS | Encounter Summary ---
Author Organization Healthcare Address [address] [place] [address] Care Team Providers Care Coding Educator Name Role Phone Pcp, No Primary Care Provider Unavailabl e Encounter Details Date Type Department Care Team (Latest Contact Info) Description 11/29/2024 10:54 AM EDT - 11/29/2024 11:59 PM EDT Hospital Encounter [facility] [address] [facility], [address] [place] [address] Hand pain, left Discharge Disposition: Home or Self Care Social History Tobacco Use Types Packs/Day Years Used Date Smoking Tobacco: Every Day Cigarettes Smokeless Tobacco: Never Alcohol Use Standard Drinks/Week Comments Never 0 (1 standard drink = 0.6 oz pur e alcohol) PHQ-2 Answer Date Recorded Patient Health Questionnaire-2 Score 5 11/29/2024 PHQ-9 Answer Date Recorded Patient Health Questionnaire-9 Score 9 11/29/2024 Comments Unknown Sex and Gender Information Value Date Recorded Sex Assigned at Not on file Legal Sex Female 8:22 PM EDT Gender Identity Not on file Sexual Orientation Not on file documented as of this encounter Functional Status * Over the past 2 weeks, how often have you been bothered by any of the following problems? Question Answer Date of Assessment Author Little interest or pleasure in doing things More than half the days 11/29/2024 10:18 AM EDT Genevieve Orta Feeling down, depressed, or hopeless Nearly every day 11/29/2024 10:18 AM EDT Bong Orta Patient Health Questionnaire-2 Score 5 11/29/2024 10:18 AM EDT Genevieve Orta * Question Answer Date of Assessment Author Trouble falling or staying asleep, or sleeping too much Several days 11/29/2024 10:18 AM Genevieve Arroyo Feeling tired or having little energy Several days 11/29/2024 10:18 AM Genevieve Arroyo Poor appetite or overeating Not at all 11/29/2024 10:18 AM Genevieve Arroyo Feeling bad about yourself - or that you are a failure or have let yourself or your family down Not at all 11/29/2024 10:18 AM Genevieve Arroyo Trouble concentrating on things, such as reading the newspaper or watching television Not at all 11/29/2024 10:18 AM Genevieve Arroyo Moving or speaking so slowly that other people could have noticed? Or the opposite - being so fidgety or restless that you have been moving around a lot more than usual. More than half the days 11/29/2024 10:18 AM Genevieve Arroyo Thoughts that you would be better off or hurting yourself in some way Not at all 11/29/2024 10:18 AM Genevieve Arroyo Patient Health Questionnaire-9 Score 9 11/29/2024 10:18 AM Genevieve Arroyo * If you checked off any problems on this questionnaire so far, Question Answer Date of Assessment Author How difficult have these problems made it for you to do your work, take care of things at home, or get along with other people? Extremely difficult 11/29/2024 10:18 AM Genevieve Arroyo * How difficult have these problems made it for you to do your work, take care of things at home, or get along with other people? Answer Date of Assessment Author Extremely difficult 11/29/2024 10:18 AM Genevieve Arroyo documented as of this encounter Medications at Time of Discharge Breo Ellipta 100-25 MCG/ACT aerosol powder inhale 1 puff into the lungs once daily. 03/09/2024 cyclobenzaprine (Flexeril) 5 MG tablet take 1 tablet by mouth 3 times daily as needed for pain. 03/25/2024 gabapentin (Neurontin) 100 MG capsule take 1 capsule by mouth 3 times daily for 10 days. 06/04/2024 gabapentin (Neurontin) 600 MG tablet Take 1 tablet by mouth every 8 hours. 11/04/2024 ketoconazole (NIZOral) 2 % cream APPLY TO AFFECTED AREAS TWO TIMES DAILY WHEN FLARED. 12/26/2023 levocetirizine (Xyzal) 5 MG tablet Take 1 tablet by mouth daily. 08/18/2024 naloxone (Narcan) 4 mg/0.1 mL nasal spray 0.1 mL by Nasal route as needed for Opioid Reversal. [place] the contents of one device (0.1mL) into one nostril upon signs of opioid overdose. Call 911. May repeat dose in other nostril if no response within 2-3 minutes. 08/05/2024 naproxen (Naprosyn) 500 MG tablet Take 1 tablet by mouth 2 times a day. 05/27/2024 nitrofurantoin, macrocrystal-monohyd rate, (Macrobid) 100 MG capsule TAKE 1 CAPSULE BY MOUTH EVERY 12 HOURS WITH MEAL/FOOD FOR 10 DAYS 04/23/2024 omeprazole (PriLOSEC) [address] capsule Take 1 capsule by mouth as needed. ondansetron ODT (Zofran-ODT) 4 MG disintegrating tablet DISSOLVE 1 TABLET BY MOUTH EVERY 6 HOURS NEEDED FOR NAUSEA. 10/18/2024 oxyCODONE (Roxicodone) 5 MG immediate release tablet Take one Tab by mouth every 6-8 hours as needed (PRN) 07/07/2024 predniSONE (Deltasone) 20 MG tablet take 1 tablet by mouth twice daily for 5 days. 05/27/2024 terbinafine (LamISIL) 250 MG tablet TAKE ONE TABLET BY MOUTH DAILY FOR 21 DAYS. 12/26/2023 documented as of this encounter Plan of Treatment Upcoming Encounters Date Type Department Care Team (Late st Contact Info) Description 12/27/2024 10:30 AM EDT Procedure Visit [facility] [address] [place] [address] Temo Freeman, DO [address] [place] [address] 12/27/2024 3:40 PM EDT Office Visit [facility] [address] [place] [address] Dago Canseco MD [address] [place] [address] documented as of this encounter Procedures Procedure Name Priority Date/Time Associated Diagnosis Comments XR WRIST RIGHT 3+ VIEWS Routine 11/29/2024 11:02 AM EDT Hand pain, left documented in this encounter Results * XR Wrist Right 3+ Views (11/29/2024 11:02 AM EDT) Anatomical Region Laterality Modality Upper Extremities, Wrist Right Digital Radiography Impressions 11/29/2024 11:44 AM EDT Postsurgical changes from resection of the distal pole scaphoid. No acute bony findings. CRITICAL RESULT: No. COMMUNICATION: Per this written report. Drafted by Vignesh Tavera MD on 11/29/2024 11:43 AM Final report signed by Vignesh Tavera MD on 11/29/2024 11:44 AM Narrative 11/29/2024 11:44 AM EDT CLINICAL INDICATION: pain TECHNIQUE: XR WRIST RIGHT 3+ VIEWS COMPARISON: None. FINDINGS: At most minimal scapholunate interval widening. There is some sclerosis and cystic change in the proximal pole scaphoid. Partial excision of the distal scaphoid. No acute fracture or dislocation. Procedure Note Vignesh Tavera MD - 11/29/2024 CLINICAL INDICATION: pain TECHNIQUE: XR WRIST RIGHT 3+ VIEWS COMPARISON: None. FINDINGS: At most minimal scapholunate interval widening. There is some sclerosisand cystic change in the proximal pole scaphoid. Partial excision of thedistal scaphoid. No acute fracture or dislocation. IMPRESSION: Postsurgical changes from resection of the distal pole scaphoid. No acutebony findings. CRITICAL RESULT: No. COMMUNICATION: Per this written report. Drafted by Vignesh Tavera MD on 11/29/2024 11:43 AM Final report signed by Vignesh Tavera MD on 11/29/2024 11:44 AM us Giana CRUZ IMG XR PROCEDURES Final Result documented in this encounter Visit Diagnoses Diagnosis Hand pain, left Pain in soft tissues of limb documented in this encounter Additional Health Concerns Assessment Noted Time PHQ-9 Depression Total Score: 9 11/30/19 10:18 AM EDT A Body Mass Index follow-up plan has been documented for the patient 11/29/2024 11:41 AM EDT documented as of this encounter Care Teams Coding Educator Relationship Specialty Start Date End Date Pcp, No [address] [place] [address] PCP - General Family Medicine 11/24/24 documented as of this encounter
--- OUTSIDE RECORDS SUMMARY | 2024-11-29 11:10 | XMS_ITS | Encounter Summary ---
Author Organization Healthcare Address [address] [place] [address] Care Team Providers Care Hockey Player Name Role Phone Pcp, No Primary Care Provider Unavailabl e Reason for Referral * Other Medical (Routine) - Authorized Specialty Diagnoses / Procedures Referred By Brenda martinez Referred To Contact Neurology Diagnoses Injury of right ulnar nerve, unspecified injury location, initial encounter Procedures EMG / Nerve Conduction Study EMG / Nerve Conduction Study Giana Terry PA [address] [address] Phone: tel: fax: Referral ID Status Reason Start Date Expiration Date Visits Requested Visits Authorized [id number] Authorized Specialty Services Required 11/29/2024 05/31/2026 1 1 Reason for Visit * Reason Comments Consult Consult * Consultation (Routine) - Closed Specialty Diagnoses / Procedures Referred By Brenda martinez Referred To Contact Orthopaedic Surgery Diagnoses Lesion of ulnar nerve, unspecified laterality Teodoro Paredes, MAIL WEIGHER [address] [place] [address] Phone: tel: fax: Referral ID Status Reason Start Date Expiration Date V isits Requested Visits Authorized [id number] Closed Specialty Services Required 09/23/2024 03/25/2026 1 1 Encounter Details Date Type Department Care Team (Late st Contact Info) Description 11/29/2024 11:10 AM EDT Office Visit Massiel Porter [address] [place] [id number] Dago Canseco MD [address] [address] Hand pain, left (Primary Dx); Injury of right ulnar nerve, unspecified injury location, initial encounter Social History Tobacco Use Types Packs/Day Years Used Date Smoking Tobacco: Every Day Cigarettes Smokeless Tobacco: Never Tobacco Cessation:Ready to Q uit: Not Asked; Counseling Given: Not Answered Alcohol Use Standard Drinks/Week Comments Never 0 [...] Sign Reading Time Taken Comments Blood Pressure 137/88 11/29/2024 10:26 AM EDT Pulse 83 11/29/2024 10:26 AM EDT Temperature 37.1 C (98.7 F) 11/29/2024 10:26 AM EDT Respiratory Rate - - Oxygen Saturation 96% 11/29/2024 10:26 AM EDT Inhaled Oxygen Concentration - - Weight 40.8 kg (90 lb) 11/29/2024 10:26 AM EDT Height 157.5 cm (5' 2 ) 11/29/2024 10:26 AM EDT Body Mass Index 16.46 11/29/2024 10:26 AM EDT documented in this encounter Functional Status * Over the [...] little energy Several days 11/29/2024 10:18 AM Geneveive Arroyo Poor appetite or overeating Not at all 11/29/2024 10:18 AM Genevieve Arroyo Feeling bad about yourself - or that you are a failure or have let yourself or your family down Not at all 11/29/2024 10:18 AM Genevieve rAroyo Trouble concentrating on things, such as reading [...] Genevieve Arroyo documented as of this encounter Miscellaneous Notes * Patient Instructions - Munira Borjas - 11/29/2024 11:10 AM EDT Expect a call from [phone] to schedule EMG/Nerve Conduction Study. Once that is scheduled giveus a call at [phone] to follow-up with our office after obtaining diagnostics. * Progress Notes - Giana Terry PA - 11/29/2024 11:10 AM EDT Hand Surgery Clinic Note CC: ulnar nerve issue HISTORY OF PRESENT ILLNESS: Noam Duval is a 59 y.o. right-hand dominant disabled female who is here today complaining of extreme hypersensitivity in the area of the superficial cutaneous nerve of the ulnar nerve branch. Patient does have an interesting history in that she was told for many years she had carpal tunnel but a little over 2 years ago she had an EMG ( reviewed from office notes) that was negative, she then had onset of numbness and tingling in the long ring and small fingers. In an EMG was reperformed. Patient states that she can not tolerate the EMG/ NCV but then per the outside notes she had ulnar nerve compression. She was also being seen by the orthopedic doctor secondary to STT arthritis. Patient had cubital tunnel release, right endoscopic carpal tunnel release, right excision of distal pole of the scaphoid 07/07/2024. Patient states that since that time she does have some persistent numbness and tingling in the small and ring finger. Patient complains that she can not actively use her small and ring finger. She complains of extreme sensitivity in the palm ulnarly. Patient states she was not offered occupational therapy but she has not attended any occupational therapy. Patient states that she did complain that the dressing that she was in for a proximally 1 month was super tight in that she complained of an indention in her hypothenar eminence. She does not complain of any continued thumb pain PAST MEDICAL HISTORY: Past Medical History[1] PAST SURGICAL HISTORY: Surgical History[2] MEDICATIONS: Current Medications[3] ALLERGIES: Allergies[4] SOCIAL HISTORY: Social History[5] FAMILY HISTORY Family history is as noted on the history intake form which was reviewed and scanned into [employer]. Negative for bleeding disorders, clotting disorders or anesthesia issues. REVIEW OF SYSTEMS ROS: 14 point review of systems was completed with the patient and documented on written assessmentat this time and was negative except as noted in the HPI. PHYSICAL EXAM: GEN: Healthy appearing, alert, no acute distress SKIN: Normal color, texture; no rashes or lesions HEENT: Normocephalic, no signs of trauma, anicteric, neck with normal ROM PULM: Normal respiratory effort on room air, no audible stridor or wheeze CV: right hand is well-perfused PSYCH: Pleasant and normal affect NEURO: Alert and oriented x 3. Cranial nerves grossly intact, speech intact EXTREMITY: there may be a absence of FDS of the small, FDP of the small is very weak but functioning, FDS and FDP of the ring are weak that they are functioning. There is an incomplete fist. There ishypothenar and intrinsic wasting. That is out of the norm in the ulnar cutaneous nerve path. There is no Tinel's at the elbow or the wrist RESULTS: IMAGING: I have ordered and personally reviewed three views of the wrist and it does show distal scaphoid resection no other bony abnormality per my personal report ASSESSMENT/PLAN: Noam Duval is a 59 y.o. year-old female presenting for Ulnar nerve dysfunction. Patient is now status post right upper extremity cubital tunnel Release in Situ, with complaints that she has decreased active motion of the small and ring finger, she has significant weakness, she has persistent numbness in her fingers ring and small she has extreme hypersensitivity in the hypothenar eminence. We are concerned there was damaged performed to the ulnar nerve during the cubital tunnel release and wethink an EMG at this time is medically necessary to assess the functioning of the nerve. We will order this and see the patient back after EMG. We are concerned that patient had significant pain and anxiety with the EMG and nerve conduction studies previously and we are hoping that physical medicine rehab can give her something for anxiety prior to the procedure. [1] Past Medical History: Diagnosis Date Anxiety Depression Hypertension [2] Past Surgical History: Procedure Laterality Date HAND SURGERY Right Right hand & Wrist Carpal Tunnel Release & Bone Removal [3] Current Outpatient Medications Medication Sig Dispense Refill Breo Ellipta 100-25 MCG/ACT aerosol powder inhale 1 puff into the lungs once daily. cyclobenzaprine (Flexeril) 5 MG tablet take 1 tablet by mouth 3 times daily as needed for pain. gabapentin (Neurontin) 600 MG tablet Take 1 tablet by mouth every 8 hours. ketoconazole (NIZOral) 2 % cream APPLY TO AFFECTED AREAS TWO TIMES DAILY WHEN FLARED. levocetirizine (Xyzal) 5 MG tablet Take 1 tablet by mouth daily. naloxone (Narcan) 4 mg/0.1 mL nasal spray 0.1 mL by Nasal route as needed for Opioid Reversal. [place] the contents of one device (0.1mL) into one nostril upon signs of opioid overdose. Call 911. May repeat dose in other nostril if no response within 2-3 minutes. naproxen (Naprosyn) 500 MG tablet Take 1 tablet by mouth 2 times a day. omeprazole (PriLOSEC) [address] capsule Take 1 capsule by mouth as needed. ondansetron ODT (Zofran-ODT) 4 MG disintegrating tablet DISSOLVE 1 TABLET BY MOUTH EVERY 6 HOURS ASNEEDED FOR NAUSEA. oxyCODONE (Roxicodone) 5 MG immediate release tablet Take one Tab by mouth every 6-8 hours as needed (PRN) terbinafine (LamISIL) 250 MG tablet TAKE ONE TABLET BY MOUTH DAILY FOR 21 DAYS. gabapentin (Neurontin) 100 MG capsule take 1 capsule by mouth 3 times daily for 10 days. (Patient not taking: Reported on 11/29/2024) nitrofurantoin, macrocrystal-monohydrate, (Macrobid) 100 MG capsule TAKE 1 CAPSULE BY MOUTH EVERY 12 HOURS WITH MEAL/FOOD FOR 10 DAYS (Patient not taking: Reported on 11/29/2024) predniSONE (Deltasone) 20 MG tablet take 1 tablet by mouth twice daily for 5 days. (Patient not taking: Reported on 11/29/2024) No current facility-administered medications for this visit. [4] Allergies Allergen Reactions Codeine Itching and Nausea And Vomiting Nickel Rash JEWELRY [employer] EARRINGS Tape/Bandaid Adhesive Rash medapore tape is ok Hydrocodone Vomiting and Itching [5] Social History Tobacco Use Smoking status: Every Day Current packs/day: 0.50 Types: Cigarettes Smokeless tobacco: Never Vaping Use Vaping status: Some Days Substances: Nicotine Substance Use Topics Alcohol use: Never Drug use: Yes Types: Marijuana Cosigned by Dago Canseco MD at 11/29/2024 2:45 PM EDT Associated attestation - Dago Canseco MD - 11/29/2024 2:45 PM EDT I attest to being involved in providing substantive part of the medical decision making in patient care. documented in this encounter Plan of Treatment Upcoming Encounters Date Type Department Care Team (Late st Contact Info) Description 12/27/2024 10:30 AM EDT Procedure Visit [facility] [address] [facility] [place] [address] Temo Freeman, [address] [place] [address] 12/27/2024 3:40 PM EDT Office Visit [facility] [address] [place] [address] Dago Canseco MD [address] [address] Scheduled Orders Name Type Priority Associated Diagnoses Orde r Schedule EMG / Nerve Conduction Study Neurology Routine Injury of right ulnar nerve, unspecified injury location, initial encounter Expected: 11/29/2024 (Approximate), Expires: 06/02/2026 documented as of this encounter Results * XR Wrist Right [...] Vignesh Tavera MD on 11/29/2024 11:44 AM Giana CRUZ IMG XR PROCEDURES Final Result documented in this encounter Visit Diagnoses Diagnosis Hand pain, left- Primary Pain in soft tissues of limb Injury of right ulnar nerve, unspecified injury location, initial encounter Hand pain, left Pain in soft tissues of limb documented in this encounter Additional Health Concerns Assessment Noted Time PHQ-9 Depression Total Score: 9 11/30/19 10:18 AM EDT A Body Mass Index follow-up plan has been documented for the patient 11/29/2024 11:41 AM EDT documented as of this encounter Care Teams Hockey Player Relationship Specialty Start Date End Date Pcp, No [address] [place] [address] PCP - General Family Medicine 11/24/24 documented as of this encounter
--- OUTSIDE RECORDS SUMMARY | 2024-12-24 10:35 | XMS_ITS | Clinical Summary ---
Author Organization [facility] (Formerly [facility]) Address [address] [facility] [address] [place] [address] Phone Care Team Providers Care Piano Maker Name Role Phone Outside, Provider Unavailable [phone] Conditions or Problems No information available. Medications No information available. Medications Administered No information available. Allergies, Adverse Reactions, Alerts No information available. Results No information available. Plan of Care No information available. Procedures No information available. Vital Signs No information available. Immunizations No information available. Advance Directives No information available.
--- OUTSIDE RECORDS SUMMARY | 2024-12-24 10:36 | XMS_ITS | Clinical Summary ---
Author Organization [facility] Address [address] [place] [address] Phone Care Team Providers Care Sheet Mill Supervisor Name Role Phone Tiffanie Muhammad APRN Unavailable [phone] Conditions or Problems Problem Name Problem Code Onset Date Status Entry Date Provider Comment Standard Description Annotate Anxiety Disorder 933707220 (SNOMED CT) 12/20 Active 12/24 Tiffanie Muhammad APRN Anxiety disorder Hepatitis C 32459224 (SNOMED CT) 12/20 Active 12/20 Tiffanie Muhammad APRN Viral hepatitis C Anxiety 60970131 (SNOMED CT) 12/20 Active 12/20 Tiffanie Muhammad APRN Anxiety Constipation 26805010 (SNOMED CT) 12/20 Active 12/20 Tiffanie Muhammad APRN Constipation Medications Medication Instructions Start Date Stop Date Generic Name NDC Provider Miralax 17 gram powder in packet Drink 1 packet dissolved in water once a day as needed FOR CONSTIPATION polyethylene glycol 3350 [id number] Tiffanie Muhammad APRN BUSPIRONE HCL 15 MG TABS Take 1 tablet by mouth twice a day buspirone 22655412022 Tiffanie Muhammad APRN Medications Administered No information [...] Code Procedure Name Date Entry Date [facility] 50583 T1 Acute Hepatits Panel 2020 [facility] 6399 T1 CBC with diff [facility] 05715 T1 CMP [facility] 606 T1 Lipase CPT-3074F Most recent systolic blood pressure <130 mm Hg CPT-3078F Most recent diastoli c blood pressure <80 mm Hg [facility]-[id number] Medication Reconciliation Vital Signs Date Name Value [...]
--- OUTSIDE RECORDS SUMMARY | 2024-12-24 10:37 | XMS_ITS | Encounter Summary ---
Author Organization [place] [address] [place] [address] Care Team Providers Care Hooking Machine Operator Name Role Phone Raúl Franklin MD Primary Care Provider [phone] Jarod Falcon MD Unavailable [phone] Gonsalo Quarles DPM Unavailable Unavailab Darrell Johansen DPM Unavailable [phone] Brittany Wolf MD Primary Care Provider Lee Cardenas NP Primary Care Provider [phone] Holli Evangelista APRN Primary Care Provider Unava Maldonado Greene DO Primary Care Provider [phone] Emmanuel Riley BA, COS Unavailable Unavailabl Emmanuel Evans BA, COS Unavailable Unavailabl Emmanuel Evans BA, COS Unavailable Unavailabl Nan Arias FIRE PREVENTION BUREAU CAPTAIN Unavailable Unavailable No Pcp, Per Patient Primary Care Provider Candice fraga Encounter Details Date Type Department Care Team (Latest Contact Info) Description 08/10/2013 Pre-Imaging Procedure Adult Med [address] [place], [place] [id number] Cadence Schroeder, WILLIAMS Mechanical complication of colostomy [...] documented as of this encounter Care Teams Hooking Machine Operator Relationship Specialty Start Date End Date Raúl Franklin MD [address] [address] PCP - General 06/16/09 08/23/15 Brittany Wolf MD [address] [address] PCP - General Family Medicine 08/24/15 12/20/15 Lee Cintron NP [address] [place], [place] [id number] PCP - General Nurse Practitioner-Family 02/01/16 09/02/16 Holli Evangelista APRN [address] [place] [address] PCP - General Nurse Practitioner 09/03/16 04/02/18 Maldonado Murrieta DO [address] [place] [address] PCP - General Family Medicine 04/03/18 04/06/24 No Pcp, Per Patient PCP - General 08/05/24 Jarod Falcon MD [address] [place] [address] Internal Medicine-Gastroenterol ogy 09/16/12 Gonsalo Quarles, DPM [address] [place] [address] Maintenance Journeyman-Primary Podiatric Medicine 03/24/14 Darrell Interiano, DPM [address] [address] Maintenance Journeyman-Surgery, Foot & Ankle 05/05/14 Emmanuel Riley BA, COS Case Public Health Aides Teacher 01/06/19 01/06/19 Emmanuel Riley BA, COS Case Public Health Aides Teacher 06/24/19 08/02/19 Emmanuel Riley BA, COS Case Public Health Aides Teacher 11/29/19 04/10/20 Nan Suazo, FIRE PREVENTION BUREAU CAPTAIN Respiratory Therapist 12/10/21 2 documented as of this encounter
--- OUTSIDE RECORDS SUMMARY | 2024-12-24 10:37 | XMS_ITS | Encounter Summary ---
Author Organization Healthcare Address [address] [place] [address] Care Team Providers Care Bootmaker Name Role Phone Pcp, No Primary Care Provider Unavailabl e Reason for Visit * Reason Onset Date Comments HCN - Patient Message 11/24/2024 Encounter Details Date Type Department Care Team (Late st Contact Info) Description 11/24/2024 Telephone [facility] [address] [place] [address] Dago Canseco MD [address] [address] HCN - Patient Message Social History Tobacco Use Types Packs/Day Years Used Date Smoking Tobacco: Never Assessed Comments Unknown Sex and Gender Information Value Date Recorded Sex Assigned at Not on file Legal Sex Female 8:22 PM EDT Gender Identity Not on file Sexual Orientation Not on file documented as of this encounter Miscellaneous Notes * Telephone Encounter - Roya Amanda RN - 11/24/2024 3:28 PM EDT Called and got her set up to see us on 11/29 * Telephone Encounter - Bev Puga - 11/24/2024 2:34 PM EDT Clinical Concern/Question MELONIE Reason for Call: Patient does not have transport from her home in [place] for first available 12/27. She is asking if she can be worked in the afternoon of 11/29 because her son has an appt at [facility] at 10 a.m. that day and she can ride with him to [place]. Please call her back to advise as soon as possible. Best contact number: [phone] (mobile) Optimal time of day to reach caller: ANYTIME Additional comments/information from caller: None Note: Please do not reply to this message. Follow-up communication and further actions as a result of this message need to be communicated with the patient directly, if the patient is not active onMyChart. If the patient is active on MyChart, they will receive notification of the communication/outcome via [facility]. documented in this encounter Plan of Treatment Upcoming Encounters Date Type Department Care Team (Late st Contact Info) Description 12/27/2024 10:30 AM EDT Procedure Visit Physical Medicine & Rehabilitation Clinic at [facility] [address] [facility] [place] [address] Temo Freeman, [address] [place] [address] 12/27/2024 3:40 PM EDT Office Visit Massiel Porter [address] [place] [address] Dago Canseco MD [address] [phone] documented as of this encounter Visit Diagnoses Not on filedocumented in this encounter Care Teams Bootmaker Relationship Specialty Start Date End Date Pcp, Merline [address] [place] [address] PCP - General Family Medicine 11/24/24 documented as of this encounter
--- OUTSIDE RECORDS SUMMARY | 2024-12-24 10:37 | XMS_ITS | Encounter Summary ---
Author Organization Healthcare Address [address] [place] [address] Care Team Providers Care Hide Washer Name Role Phone Pcp, No Primary Care Provider Unavailabl e Reason for Visit * Reason Onset Date Comments HCN - Patient Message 11/30/2024 Encounter Details Date Type Department Care Team (Late st Contact Info) Description 11/30/2024 Telephone Physical Medicine & Rehabilitation Clinic at [facility] [address] [place] [place] [address] Raúl Oleary DO [address] [facility] [address] [place] [address] HCN - Patient Message Social History Tobacco [...] encounter Miscellaneous Notes * Telephone Encounter - Raúl Oleary DO - 12/01/2024 9:46 AM EDT Sent * Telephone Encounter - Roselia Perez RN - 12/01/2024 9:45 AM EDT Called pt. Said she'd be willing to have a Valium. Confirmed her pharmacy if you're willing to write for it. Thank you * Telephone Encounter - Raúl Oleary DO - 11/30/2024 4:41 PM EDT Not that I know of. Can do like valium though not sure that will be enough if that is how bad it is. * Telephone Encounter - Eileen Brandon - 11/30/2024 4:17 PM EDT Clinical Concern/Question Reason for Call: Mamta pt. Pt is scheduled for an EMG on 02/07/25 at 9:30. Pt says she can't have this done unless she has some kind of sedation due to her pain. Please call to advise Best contact number: [phone] (home) Optimal time of day to reach caller: ANYTIME Additional comments/information from caller: None Note: Please do not reply to this message. Follow-up communication and further actions as a result of this message need to be communicated with the patient directly, if the patient is not active onMyChart. If the patient is active on MyChart, they will receive notification of the communication/outcome via [facility] documented in this encounter Plan of Treatment Upcoming Encounters Date Type Department Care Team (Late st Contact Info) Description 12/27/2024 10:30 AM EDT Procedure Visit [facility] Medicine & Rehabilitation Clinic at [facility] [address] [place] [address] Temo Freeman DO [address] [place] [address] 12/27/2024 3:40 PM EDT Office Visit Massiel Porter [address] [place] [address] Dago Canseco MD [address] [place] [address] documented as of this encounter Visit Diagnoses Diagnosis Anxiety due to invasive procedure- Primary documented in this encounter Additional Health Concerns Assessment Noted Time PHQ-9 Depression Total Score: 9 11/30/19 10:18 AM EDT A Body Mass Index follow-up plan has been documented for the patient 11/29/2024 11:41 AM EDT documented as of this encounter Care Teams Hide Washer Relationship Specialty Start Date End Date Pcp, [place] [address] PCP - General Family Medicine 11/24/24 documented as of this encounter
--- OUTSIDE RECORDS SUMMARY | 2024-12-24 10:37 | XMS_ITS | Encounter Summary ---
Author Organization Healthcare Address [address] [address] Care Team Providers Care Fertilizer Applicator Name Role Phone Pcp, No Primary Care Provider Unavailabl e Encounter Details Date Type Department Care Team (Latest Contact Info) Description 11/29/2024 Travel Social History Tobacco Use Types Packs/Day Years [...] the days 11/29/2024 10:18 AM Genevieve Arroyo Feeling down, depressed, or hopeless Nearly every day 11/29/2024 10:18 AM KELLENT Bong Orta Patient Health Questionnaire-2 Score 5 11/29/2024 10:18 AM Genevieve Arroyo * Question Answer Date of Assessment Author [...] Genevieve Arroyo documented as of this encounter Plan of Treatment Upcoming Encounters Date Type Department Care Team (Late st Contact Info) Description 12/27/2024 10:30 AM EDT Procedure Visit [facility] [address] [address] Temo Freeman, [address] [address] 12/27/2024 3:40 PM ED[place] [address] [address] Dago Canseco MD [address] [facility] [address] [place] [address] documented as of this encounter Visit Diagnoses Not on filedocumented in this encounter Additional Health Concerns Assessment Noted Time PHQ-9 Depression Total Score: 9 11/30/19 10:18 AM EDT A Body Mass Index follow-up plan has been documented for the patient 11/29/2024 11:41 AM EDT documented as of this encounter Care Teams Fertilizer Applicator Relationship Specialty Start Date End Date Pcp, [place] [address] PCP - General Family Medicine 11/24/24 documented as of this encounter
--- OUTSIDE RECORDS SUMMARY | 2024-12-24 10:37 | XMS_ITS | Encounter Summary ---
Author Organization Healthcare Address [address] [id number] Care Team Providers Care Ply Cutter Name Role Phone Pcp, No Primary Care Provider Unavailabl e Reason for Referral * Consultation (Routine) - Closed Specialty Diagnoses / Procedures Referred By Brenda t Referred To Contact Orthopaedic Surgery Diagnoses Lesion of ulnar nerve, unspecified laterality Teodoro Paredes APRN [address] [place] [address] Phone: tel: fax: Referral ID Status Reason Start Date Expiration Date V isits Requested Visits Authorized [id number] Closed Specialty Services Required 09/23/2024 03/25/2026 1 1 Encounter Details Date Type Department Care Team (Late st Contact Info) Description 09/23/2024 Community [facility] [address] [place] [address] Teodoro Paredes APRN [address] [place] [address] Lesion of ulnar nerve, unspecified [...] [facility] [address] [place] [address] Temo Freeman, [address] [place] [address] 12/27/2024 3:40 PM EDT Office Visit [facility] [address] [place] [address] Dago Canseco MD [address] [place] [address] Scheduled Referrals Name Type Priority Associated Diagnoses Orde r Schedule Ambulatory referral to General Orthopaedics Outpatient Referral Routine Lesion of ulnar nerve, unspecified laterality Expected: 09/23/2024 (Approximate), Expires: 03/26/2026 documented as of this encounter Visit Diagnoses Diagnosis Lesion of ulnar nerve, unspecified laterality- Primary documented in this encounter Care Teams Ply Cutter Relationship Specialty Start Date End Date Pcp, [place] [address] PCP - General Family Medicine 11/24/24 documented as of this encounter
--- OUTSIDE RECORDS SUMMARY | 2024-12-24 10:37 | XMS_ITS | Encounter Summary ---
Author Organization Healthcare Address [address] [place] [address] Care Team Providers Care Back Strip Machine Operator Name Role Phone Pcp, No Primary Care Provider Unavailabl e Reason for Visit * Reason Onset Date Comments HCN - Patient Message 12/03/2024 Encounter Details Date Type Department Care Team (Late st Contact Info) Description 12/03/2024 Telephone [facility] [address] [place] [address] Dago Canseco MD [address] [address] HCN - Patient Message Social [...] encounter Miscellaneous Notes * Telephone Encounter - Yahaira Knight - 12/03/2024 3:37 PM EDT Clinical Concern/Question Reason for Call: Dr. Canseco pt. This pt got her EMG moved to 12/27. She is wanting to know if she canget her follow up moved to the same day since she is coming from out of town. He does not have any openings that day currently. Best contact number: [phone] (mobile) Optimal time of day to reach caller: ANYTIME Additional comments/information from caller: None Note: Please do not reply to this message. Follow-up communication and further actions as a result of this message need to be communicated with the patient directly, if the patient is not active onMyChart. If the patient is active on MyChart, they will receive notification of the communication/outcome via [employer]. documented in this encounter Plan of Treatment Upcoming Encounters Date Type Department Care Team (Late st Contact Info) Description 12/27/2024 10:30 AM EDT Procedure Visit Physical Medicine & Rehabilitation Clinic at [facility] [address] [facility] [place] [address] Temo Freeman DO [address] [place] [address] 12/27/2024 3:40 PM EDT Office Visit Massiel Porter [address] [place] [address] Dago Canseco MD [address] [address] documented as of this encounter Visit Diagnoses Not on filedocumented in this encounter Additional Health Concerns Assessment Noted Time PHQ-9 Depression Total Score: 9 11/30/19 10:18 AM EDT A Body Mass Index follow-up plan has been documented for the patient 11/29/2024 11:41 AM EDT documented as of this encounter Care Teams Back Strip Machine Operator Relationship Specialty Start Date End Date Pcp, Merline [address] [place] [address] PCP - General Family Medicine 11/24/24 documented as of this encounter
--- OUTSIDE RECORDS SUMMARY | 2024-12-24 10:37 | XMS_ITS | Encounter Summary ---
Author Organization [place] [address] Care Team Providers Care Makeup Sales Advisor Name Role Phone Raúl Franklin MD Primary Care Provider [phone] Jarod Falcon MD Unavailable [phone] Gonsalo Quarles DPM Unavailable Unavailab Darrell Johansen DPM Unavailable [phone] Brittany Wolf MD Primary Care Provider Lee Cardenas NP Primary Care Provider [phone] Holli Evangelista APRN Primary Care Provider Unava Maldonado Greene DO Primary Care Provider [phone] Emmanuel Riley BA, COS Unavailable Unavailabl Emmanuel Evans BA, COS Unavailable Unavailabl Emmanuel Evans BA, COS Unavailable Unavailabl Nan Arias RIDING DOUBLE Unavailable Unavailable No Pcp, Per Patient Primary Care Provider Candice fraga Encounter Details Date Type Department Care Team (Late st Contact Info) Description 08/23/2013 Pre-Imaging Procedure Adult Med [address] [id number] Yarely Randall, RT Social History Tobacco Use [...] documented as of this encounter Care Teams Makeup Sales Advisor Relationship Specialty Start Date End Date Raúl Franklin MD [address] [place] [id number] PCP - General 06/16/09 08/23/15 Brittany Wolf MD [address] [facility] [address] [address] PCP - General Family Medicine 08/24/15 12/20/15 Lee Cintron NP [address] [place] [address] PCP - General Nurse Practitioner-Family 02/01/16 09/02/16 Holli Evangelista APRN [address] [place] [address] PCP - General Nurse Practitioner 09/03/16 04/02/18 Maldonado Murrieta DO [address] [place] [address] PCP - General Family Medicine 04/03/18 04/06/24 No Pcp, Per Patient PCP - General 08/05/24 Jarod Falcon MD [address] [facility] [place] [address] Internal Medicine-Gastroenterol ogy 09/16/12 Gonsalo Quarles, DPM [address] [facility] [facility] [place] [address] Supervisor Securities Vault-Primary Podiatric Medicine 03/24/14 Darrell Interiano, DPM [address] [address] Supervisor Securities Vault-Surgery, Foot & Ankle 05/05/14 Emmanuel Riley BA, COS Case Document Control Supervisor 01/06/19 01/06/19 Emmanuel Riley BA, COS Case Document Control Supervisor 06/24/19 08/02/19 Emmanuel Riley BA, COS Case Document Control Supervisor 11/29/19 04/10/20 Nan Suazo, RIDING DOUBLE Respiratory Therapist 12/10/21 2 documented as of this encounter
--- OUTSIDE RECORDS SUMMARY | 2024-12-24 10:38 | XMS_ITS | Clinical Summary ---
Author Organization [facility] Address [address] [place] [address] Phone Care Team Providers Care Concrete Tile Machine Operator Name Role Phone Jarod Falcon MD Unavailable [phone] Gonsalo Quarles DPM Unavailable Unavailab Darrell Johansen DPM Unavailable [phone] No Pcp, Per Patient Primary Care Provider [...] 5 Active nalOXone (NARCAN) 4 mg/actuation Nasl [place], Non-Aerosol 0.1 mL by Nasal route as needed for Opioid Reversal. [place] the contents of one device (0.1mL) into one nostril upon signs of opioid overdose. Call 911. May repeat dose in other nostril if no response within 2-3 minutes. 1 Each 5 Active Active Problems Patient Care Coordination No te Formatting of this note migh t be different from the original. Care gap audit completed by Georgette Constantino RN on 09/12/2023. Collins- 08/10/2015 as expected Cont[place] substance report ([place]): Yes 02/14/[address] JONES DO NOT RESCHEDULE WITH HIM N.S. 03/04/16-Onofre Problem Noted Date Diagnosed Date Cubital tunnel syndrome on right 06/25/2024 Carpal tunnel syndrome of right wrist 06/25/2024 Chronic hepatitis C without hepatic coma 020 Encounter for other specified special examinatio ns 10/27/2019 Medical clearance for psychiatric admission 10/17 Borderline personality disorder 10/27/2019 Mood disorder 10/27/2019 Methamphetamine dependence 10/27/2019 Perianal lesion 04/06/2019 Overview (04/06/2019): Added automatically from request for surgery [id number] Cerebrovascular accident (CV A) due to occlusion [...] 2:36 PM EDT Emergency [facility] [address] [facility] [place] [address] Eryn Falcon MD Nausea and vomiting, unspecified vomiting type (Primary Dx) Discharge Disposition: Home or Self Care from Last 3 Months Immunizations Immunization Administration [...] FISTULA ; Surgeon: Poppy Randolph MD; Location: [facility] MAIN OR; Service: General RECTAL PROLAPSE REPAIR [...] Date Smoking Tobacco: Every Day Cigarettes 0.5 49.9 Started: 01/12/1975 Smokeless Tobacco: Never Tobacco Cessation:Ready [...] Exam Medicare 01/19/2023 01/18/2022 COVID-19 Vaccine ( season) 2024 Influenza Vaccine (#1) 2025 9, 02/22/2019, 01/26/2014, Additional history exists Colon Cancer [...] [place] RMA Medical Devices Implanted Type Area Focuser Device Identifier Shelf Expiration Date Model / [...] EDT CBC STAT 10/16/2024 12:[address] ANGIOGRAM PULMONARY W CONTRAST [...] UA Color Yellow 10/16/2024 2:19 PM EDT [facility] UA Appear Clear Clear 10/16/2024 2:19 PM EDT [facility] UA Glucose 100(A) Negative mg/dL 10/16/2024 2:19 PM EDT [facility] UA Ketones 1+ (15 mg/dL)(A) Negative mg/dL 10/16/2024 2:19 PM EDT [facility] UA Blood Negative Negative 10/16/2024 2:19 PM EDT [facility] UA pH 8.0 5.0 - 8.0 pH 10/16/2024 2:19 PM EDT [facility] UA Protein Trace(A) Negative mg/dL 10/16/2024 2:19 PM EDT [facility] UA Urobilinogen 0.2 <=1 mg/dL 2:19 PM EDT [facility] UA Bili Negative Negative 10/16/2024 2:19 PM EDT [facility] UA Nitrite Negative Negative 10/16/2024 2:19 PM EDT [facility] UA Leuk Est Negative Negative 10/16/2024 2:19 PM EDT [facility] UA Spec Grav 1.015 1.001 - 1.035 no units 10/16/2024 2:19 PM EDT [facility] Comment:Reference range johnny d for random specimens only. UA RBC 1 0 - 3 /HPF 10/16/2024 2:19 PM EDT [facility] UA Squam Epi Rare /LPF 10/16/2024 2:19 PM EDT [facility] Urine STRUCTURE OF URINARY TRACT PROPER / Unknown 10/16/2024 2:08 PM EDT 10/16/2024 2:11 PM EDT Eryn Falcon MD URINE ORDERABLES Final Result Performing Organization Address [facility] de Phone Number [facility] [address] [place] [address] * EXTRA VLILANUEVA URINE CX (10/16/2024 2:08 PM EDT) Urine STRUCTURE OF URINARY TRACT PROPER / Unknown 10/16/2024 2:08 PM EDT 10/16/2024 2:11 PM EDT Eryn Falcon MD MICROBIOLOGY - GENERAL ORDERABL ES Final Result Performing Organization Address [facility] Co de Phone Number [facility] [address] [place] [address] * EK EKG 12 LEAD (10/16/2024 12:36 PM EDT) Anatomical Region Laterality Modality Electrocardiogra phy 10/16/2024 12:4 5 PM EDT Impressions 10/16/2024 2:24 PM EDT [employer] Test Date: 2024-10-16 Pat Name: NOAM GUY Department: DEPID Room: 08 Gender: Female Copyist: Naveed : 1965 Requested By: ERYN Balderrama Order Number: [id number] Reading MD: Anup Chinchilla Measurements Intervals [place] Rate: 55 P: 71 NC: 152 QRS: 85 QRSD: 89 T: 80 QT: 428 QTc: 409 Interpretive Statements SINUS BRADYCARDIA WITH SINUS ARRHYTHMIA POSSIBLE RIGHT VENTRICULAR CONDUCTION DELAY Electronically Signed On 10-16-2024 14:24:19 EDT by Anup Chinchilla Narrative Procedure Note Anup Chinchilla MD - 05/31/[address] [facility] Test Date: 2024-10-16 Pat Name: NOAM GUY Department: DEPID Room: 08 Gender: Female Copyist: Naveed : 1965 Requested By: ERYN Balderrama Order Number: [id number] Reading MD: Anup Chinchilla Measurements Intervals [place] Rate: 55 P: 71 NC: 152 QRS: 85 QRSD: 89 T: 80 QT: 428 QTc: 409 Interpretive Statements SINUS BRADYCARDIA WITH SINUS ARRHYTHMIA POSSIBLE RIGHT VENTRICULAR CONDUCTION DELAY Electronically Signed On 10-16-2024 14:24:19 EDT by Anup Chinchilla us Eryn Falcon MD IMG ECG ORDERABLES Final Result * (ABNORMAL) CBC (10/16/2024 12:16 PM EDT) WBC 13.8(H) 3.7 - 10.3 x10(3)/mcL 10/16/2024 12:21 PM EDT [facility] RBC 4.30 3.90 - 5.20 x10(6)/mcL 10/16/2024 12:21 PM EDT [facility] Hgb 13.0 11.2 - 15.7 g/dL 10/16[facility]2024 [facility] Hct 40.2 34.0 - 45.0 % 10/16/2024 12:[facility] MCV 93.5 80.0 - 100.0 fL 10/16/2024 12:21 PM EDT [facility] MCH 30.2 26.0 - 34.0 pg 10/16/2024 12:21 PM EDT [facility] MCHC 32.3 30.7 - 35.5 g/dL 10/16/2024 12:[facility] RDW 13.7 <=14.9 % 10/16/2024 12:21 PM [facility] Platelet 265 155 - 369 x10(3)/mcL 10/16/2024 12:21 PM [facility] MPV 9.1 8.8 - 12.5 fL 10/16/2024 12:21 PM [facility] Blood VENOUS BLOOD / Unknown Venipuncture / Unknown 10/16/2024 12:16 PM EDT 10/16/2024 12:17 PM EDT us Eryn Falcon MD HEMATOLOGY ORDERABLES Final Res ult Performing Organization Address [facility] Co de Phone Number [facility] [address] [place] [address] * LIPASE LEVEL (10/16/2024 12:16 PM EDT) Pathologist [facility] Lipase Lvl 25 13 - 60 U/L 10/16/2024 12:40 PM EDT [facility] Blood VENOUS BLOOD / Unknown Venipuncture / Unknown 10/16/2024 12:16 PM EDT 10/16/2024 12:17 PM EDT us Eryn Falcon MD CHEMISTRY ORDERABLES Final Resu lt Performing Organization Address [facility] de Phone Number [facility] [address] [place] [address] * (ABNORMAL) COMPREHENSIVE METABOLIC PANEL (10/16/2024 12:16 PM EDT) Pathologist [facility] Sodium 142 136 - 145 mmol/L 10/16/2024 12:40 PM EDT [facility] Potassium 4.2 3.5 - 5.0 mmol/L 10/16/2024 12:40 PM EDT [facility] Chloride 102 98 - 107 mmol/L 10/16/2024 12:40 PM EDT [facility] Total CO2 22 22 - 29 mmol/L 10/16/2024 12:40 PM EDT [facility] Anion Gap 18(H) 7 - 16 mmol/L 10/16/2024 12:40 PM EDT [facility] Calcium 9.3 8.6 - 10.4 mg/dL 10/16/2024 12:40 PM EDT [facility] Glucose Lvl 166(H) 70 - 99 mg/dL 10/16/2024 12:40 PM EDT [facility] BUN 12 6 - 20 mg/dL 10/16/2024 12:40 PM EDT [facility] Creatinine 0.68 0.51 - 1.30 mg/dL 10/16/2024 12:40 PM EDT [facility] Albumin 4.4 3.5 - 5.2 gm/dL 10/16/2024 12:40 PM EDT [facility] Total Protein 7.0 6.4 - 8.3 gm/dL 10/16/2024 12:40 PM T [facility] Bili Total 0.5 0.2 - 1.3 mg/dL 10/16/2024 12:40 PM EDT [facility] ALT 8 <=41 U/L 10/16/2024 12:40 PM EDT [facility] AST 17 <=40 U/L 10/16/2024 12:40 PM T [facility] Alk Phos 61 36 - 123 U/L 10/16/2024 12:40 PM T [facility] eGFR (CKD-EPIcr 2020) 100 >=60 mL/min/1.7 3 m2 10/16/2024 12:40 PM T [facility] Comment:Estimated GFR was ca lculated using the CKD-EPIcr (2020) equation refit without race. The equation is recommended by the National Kidney Foundation - [place] Society of Nephrology Task Force. Blood VENOUS BLOOD / Unknown Venipuncture / Unknown 10/16/2024 12:16 PM EDT 10/16/2024 12:17 PM EDT us Eryn Falcon MD CHEMISTRY ORDERABLES Final Resu lt [facility] [address] [place] [address] * CT ANGIOGRAM PULMONARY W CONTRAST (10/24/2021 [...] Diameter : 25.4 cm SSDE Source : Met[employer] FINDINGS: The pulmonary arteries contain no filling [...] Diameter : 25.4 cm SSDE Source : Scandlinesa FINDINGS: The pulmonary arteries contain no filling [...] of the ordering clinician. Raúl Davila MD [facility] ORDERABLES Final Resu lt * COLOGUARD (05/14/2018 3:22 PM EST) COLOGUARD CLINICAL REPORT Negative Not Applicable [facility], [facility] Comment: A negative result indicates a low [...] were screened with both Cologuard and colonoscopy. (Zheng Kaufman al, N Engl J Med 2014;370(14):6039-6512) COLOGUARD RE-SCREENING RECOMMENDATION: Periodic routine colorectal cancer screening is an important part of preventive healthcare for asymptomatic persons at average risk for colorectal cancer. Following a negative Cologuard result, the [place] Cancer Society and U.S. Multi-Society Task Force screening guidelines recommend a Cologuard re-screening interval of 3 years. References: [place] Cancer Society (ACS). Colorectal cancer prevention and early detection. [place], [place]: [place] Cancer Society; [updated 2015Sep 09]. https://www.cancer.org/cancer/alwwa-xrtfwp-biyavw/kypwyssez-wfzuveqhb-rbqfdyd/ac s-rec ommendations.html. Accessed January 16, 2018; Rachid DK, Lissett CR, Shobha AshleyK, Colorectal Cancer Screening: Recommendations for Physicians and Patients from the U.S. Multi-Society Task Force on Colorectal Cancer Screening, Am J Gastroenterology 2017; 112:7631-5605. Test Type: Composite algorithmic analysis of stool [...] can be accessed at the following location: www.[employer] Cookies/results. Additional description of the Cologuard test process, warnings and precautions can be found at www.cologuardtest.com. Rx Only. Stool specimen (specimen) 05/14/2018 3:22 PM EST 05/16/2018 12:20 PM EST us Maldonado Murrieta DO EXACT SCIENCE - ORDERABLES Aida l Result [employer]ACT [employer], [employer] [address] [place] [address] * HM COLONOSCOPY (06/03/2016) 06/03/2016 Impressions SEP OFFICE - 06/03/2016 See report Historical Provider HEALTH MAINTENANCE Final Res ult SEP OFFICE from Last 3 Months or Most Recently Relevant to Health Maintenance Insurance [address] [address] MEDICARE MR [facility] [address] [place] [address] MEDICARE MR [employer] [place] [address] [employer] [place] [address] [employer] HMO MEDICARE MR [employer] HMO MEDICARE MR [facility] [id number] Advance Directives For more information, please contact: [phone] * Full Code (Latest Code Status on File) Date Activated Date Inactivated Comments 08/25/2016 11:50 AM 08/31/2016 2:11 PM * Full Code Date Activated Date Inactivated Comments 06/27/2016 12:27 PM 06/30/2016 8:17 PM * Full Code Date Activated Date Inactivated Comments 11/09/2015 3:34 PM 11/11/2015 12:10 AM Care Teams Concrete Tile Machine Operator Relationship Specialty Start Date End Date No Pcp, Per Patient PCP - General 08/05/24 Jarod Falcon MD Internal Medicine-Gastroenterology 09/16/12 Gonsalo Quarles DPM Field Service Representative-Primary Podiatric Medicine 03/24/14 Darrell Interiano DPM [facility] [address] [address] Field Service Representative-Surgery, Foot & Ankle 05/05/14
--- OUTSIDE RECORDS SUMMARY | 2024-12-24 10:38 | XMS_ITS | Encounter Summary ---
Author Organization [place] [address] Care Team Providers Care Vendor Management Associate Name Role Phone Raúl Franklin MD Primary Care Provider [phone] Jarod Falcon MD Unavailable [phone] Gonsalo Quarles DPM Unavailable Unavailab Darrell Johansen DPM Unavailable [phone] Brittany Wolf MD Primary Care Provider Lee Cardenas NP Primary Care Provider [phone] Holli Evangelista APRN Primary Care Provider Unava Maldonado Greene DO Primary Care Provider [phone] Emmanuel Riley BA, COS Unavailable Unavailabl Emmanuel Evans BA, COS Unavailable Unavailabl Emmanuel Evans BA, COS Unavailable Unavailabl Nan Arias CONTACT FINGER ASSEMBLER Unavailable Unavailable No Pcp, Per Patient Primary Care Provider Candice fraga Encounter Details Date Type Department Care Team (Latest Contact Info) Description 04/08/2014 Pre-Imaging Procedure Adult Med [address] [place] [address] [place] [id number] Cadence Schroeder, WILLIAMS Gastroparesis (Primary Dx) Social [...] documented as of this encounter Care Teams Vendor Management Associate Relationship Specialty Start Date End Date Raúl Franklin MD [address] [place] [address] PCP - General 06/16/09 08/23/15 Brittany Wolf MD [address] [facility] [facility] [address] [address] PCP - General Family Medicine 08/24/15 12/20/15 Lee Cintron NP [address] [place] [address] PCP - General Nurse Practitioner-Family 02/01/16 09/02/16 Holli Evangelista APRN [address] [place] [address] PCP - General Nurse Practitioner 09/03/16 04/02/18 Maldonado Murrieta DO [address] [place] [address] PCP - General Family Medicine 04/03/18 04/06/24 No Pcp, Per Patient PCP - General 08/05/24 Jarod Falcon MD [address] [facility] [address] [place], [place] [address] Internal Medicine-Gastroenterol ogy 09/16/12 Gonsalo Quarles, DPM [address] [facility] [address] [place], [place] [address] Sales Appointment Coordinator-Primary Podiatric Medicine 03/24/14 Darrell Interiano DPM [address] [address] Sales Appointment Coordinator-Surgery, Foot & Ankle 05/05/14 Emmanuel Riley BA, COS Case Metal Sprayer 01/06/19 01/06/19 Emmanuel Riley BA, COS Case Metal Sprayer 06/24/19 08/02/19 Emmanuel Riley BA, COS Case Metal Sprayer 11/29/19 04/10/20 Nan Suazo, CONTACT FINGER ASSEMBLER Respiratory Therapist 12/10/21 2 documented as of this encounter
--- OUTSIDE RECORDS SUMMARY | 2024-12-24 10:38 | XMS_ITS | Clinical Summary ---
Author Organization Healthcare Address [address] [place] [address] Care Team Providers Care Well Driller Name Role Phone Pcp, No Primary Care Provider Unavailabl e Allergies Active Allergy Reactions Criticality Noted Date Comments Codeine Itching,Nausea And Vomiting High 07/27/2013 Hydrocodone Vomiting,Itching Medium 04/30/2012 Nickel Rash High 04/30/2012 [employer] Tape/Bandaid Adhesive Rash High 06/26/2012 medapore tape is ok Medications cyclobenzaprine (Flexeril) 5 MG tablet take 1 tablet by mouth 3 times daily as needed for pain. 4 Active Breo Ellipta 100-25 MCG/ACT aerosol powder inhale 1 puff into the lungs once daily. 4 Active gabapentin (Neurontin) 600 MG tablet Take 1 tablet by mouth every 8 hours. 5 Active gabapentin (Neurontin) 100 MG capsule take 1 capsule by mouth 3 times daily for 10 days. 5 Active ketoconazole (NIZOral) 2 % cream APPLY TO AFFECTED AREAS TWO TIMES DAILY WHEN FLARED. 4 Active naloxone (Narcan) 4 mg/0.1 mL nasal spray 0.1 mL by Nasal route as needed for Opioid Reversal. [place] the contents of one device (0.1mL) into one nostril upon signs of opioid overdose. Call 911. May repeat dose in other nostril if no response within 2-3 minutes. 5 Active naproxen (Naprosyn) 500 MG tablet Take 1 tablet by mouth 2 times a day. 5 Active levocetirizine (Xyzal) 5 MG tablet Take 1 tablet by mouth daily. 5 Active nitrofurantoin, macrocrystal-monoh ydrate, (Macrobid) 100 MG capsule TAKE 1 CAPSULE BY MOUTH EVERY 12 HOURS WITH MEAL/FOOD FOR 10 DAYS 4 Active omeprazole (PriLOSEC) [address] capsule Take 1 capsule by mouth as needed. Active ondansetron ODT (Zofran-ODT) 4 MG disintegrating tablet DISSOLVE 1 TABLET BY MOUTH EVERY 6 HOURS NEEDED FOR NAUSEA. 5 Active oxyCODONE (Roxicodone) 5 MG immediate release tablet Take one Tab by mouth every 6-8 hours as needed (PRN) 5 Active predniSONE (Deltasone) 20 MG tablet take 1 tablet by mouth twice daily for 5 days. 5 Active terbinafine (LamISIL) 250 MG tablet TAKE ONE TABLET BY MOUTH DAILY FOR 21 DAYS. 4 Active diazePAM (Valium) 5 MG tabletIndications: Anxiety due to invasive procedure Take 2 tablets by mouth 1 time for 1 dose. 2 tablet 5 12/02/19 25 Active Problems No known active problems Encounters Date Type Department Care Team Description 12/03/2024 Telephone [facility] [address] [place] [address] Dago Canseco MD HCN - Patient Message 11/30/2024 Telephone [facility] [address] [place] [address] Raúl Oleary DO HCN - Patient Message 11/29/2024 11:10 AM EDT Office Visit [facility] [address] [place] [address] Dago Canseco MD Hand pain, left (Primary Dx); Injury of right ulnar nerve, unspecified injury location, initial encounter 11/29/2024 10:54 AM EDT - 11/29/2024 11:59 PM EDT Hospital Encounter [facility] X-Ray [address], [address] [place] [address] Hand pain, left Discharge Disposition: Home or Self Care 11/29/2024 Travel 11/24/20[address] [place] [address] Dago Canseco MD HCN - Patient Message 09/23/2024 [facility] [address] [place] [address] Teodoro Paredes APRN Lesion of ulnar nerve, unspecified laterality (Primary [...] on file Sexual Orientation Not on file Last Filed Vital Signs Vital Sign Reading [...] Mass Index 16.46 11/29/2024 10:26 AM EDT Plan of Treatment Upcoming Encounters Date Type Department Care Team (Late st Contact Info) Description 12/27/2024 10:30 AM EDT Procedure Visit [facility] [address] [place] [address] Temo Freeman, [address] [place] [address] 12/27/2024 3:40 PM EDT Office Visit [facility] [address] [place] [address] Dago Canseco MD [address] [place] [address] Health Maintenance Due Date Last Done Comments [facility]-HIV Screening 1965 [facility]Hepatitis C Screening 1965 [facility]-Infant/Child/Adol SDOH Screenings 1965 [facility]- SDOH Screenings 1983 [facility]-Adult SDOH Screenings 1983 [facility]-Hepatitis B Vaccines (1 of 3 - 19+ 3-dose series) 01/11/1984 [facility]-Zoster Vaccines (1 of 2) 01/11/1984 [facility]-Pap Smear 1986 [facility]-Cervical Cancer Screening 1995 [facility]-HPV/Cotest 1995 CT Colonography 2010 Colonoscopy 2010 FIT-DNA 2010 FIT 2010 FOBT 2010 Sigmoidoscopy 2010 [facility]-Colorectal Cancer Screening 2010 [facility]-Pneumococcal Vaccine: 50+ Years (2 of 2 - PCV) 02/04/2013 02/05/2012, 01/16/2011 [facility]-Breast Cancer Screening 2015 XXD-WDCAO-02 Vaccine (2 - Nicky risk series) 12/12/2020 11/14/2020 [facility]-Medicare Annual Wellness (AWV) 01/18/2023 01/18/2022, 12/05/2020, 04/09/2019, Additional history exists [facility]-Influenza Vaccine (#1) 01/17/202504/09, 02/22/2019, 01/26/2014, Additional history exists [facility]-Depression Screening 11/29/2025 11/29/2024, 11/16 [facility]-DTaP,Tdap,and Td Vaccines (7 - Td or Tdap) 12/28/2028 12/28/2018, 01/01/2010, 05/19/2009, Additional history exists [facility]-Hepatitis A Vaccines Aged Out 03/30/2019, 02/18 No longer eligible based on patient's age to complete this topic HPV Vaccines Aged Out No longer eligi ble based on patient's age to complete this topic [facility]-HIB Vaccines Aged Out No longer e ligible based on patient's age to complete this topic [facility]-IPV Vaccines Aged Out No longer e ligible based on patient's age to complete this topic [facility]-Rotavirus Vaccines Aged Out No lo nger eligible based on patient's age to complete this topic Procedures Procedure Name Priority Date/Time Associated Diagnosis Comments XR WRIST RIGHT 3+ VIEWS Routine 11/29/2024 11:02 AM EDT Hand pain, left from Last 3 Months Results * XR Wrist Right 3+ Views [...] Giana CRUZ IMG XR PROCEDURES Final Result from Last 3 Months Insurance [employer] MEDICARE [employer] MEDICAID Care Teams Well Driller Relationship Specialty Start Date End Date Pcp, Merline [address] [place] [address] PCP - General Family Medicine 11/24/24
--- OUTSIDE RECORDS SUMMARY | 2024-12-24 10:38 | XMS_ITS | Encounter Summary ---
Author Organization [place] [address] Care Team Providers Care Chemical Laboratory Assistant Name Role Phone Raúl Franklin MD Primary Care Provider [phone] Jarod Falcon MD Unavailable [phone] Gonsalo Quarles DPM Unavailable Unavailab Darrell Johansen DPM Unavailable [phone] Brittany Wolf MD Primary Care Provider Lee Cardenas NP Primary Care Provider [phone] Holli Evangelista APRN Primary Care Provider Unava Maldonado Greene DO Primary Care Provider [phone] Emmanuel Riley BA, COS Unavailable Unavailabl Emmanuel Evans BA, COS Unavailable Unavailabl Emmanuel Evans BA, COS Unavailable Unavailabl Nan Arias DATA WAREHOUSE CONSULTANT Unavailable Unavailable No Pcp, Per Patient Primary Care Provider Candice fraga Encounter Details Date Type Department Care Team (Late st Contact Info) Description 01/26/2013 Pre-Imaging Procedure Adult Med [address] [id number] Yarely Randall, RT Social History Tobacco Use [...] documented as of this encounter Care Teams Chemical Laboratory Assistant Relationship Specialty Start Date End Date Raúl Franklin MD [address] [place] [address] PCP - General 06/16/09 08/23/15 Brittany Wolf MD [address] [address] PCP - General Family Medicine 08/24/15 12/20/15 Lee Cintron NP [address] [place] [address] PCP - General Nurse Practitioner-Family 02/01/16 09/02/16 Holli Evangelista APRN [address] [place] [address] PCP - General Nurse Practitioner 09/03/16 04/02/18 Maldonado Murrieta DO [address] [place] [address] PCP - General Family Medicine 04/03/18 04/06/24 No Pcp, Per Patient PCP - General 08/05/24 Jarod Falcon MD [address] [place] [address] Internal Medicine-Gastroenterol ogy 09/16/12 Gonsalo Quarles, DPM [address] [place] [address] Players Assistant-Primary Podiatric Medicine 03/24/14 Darrell Interiano, DPM [address] [place] [address] Players Assistant-Surgery, Foot & Ankle 05/05/14 Emmanuel Riley BA, COS Case Surfacer Operator 01/06/19 01/06/19 Emmanuel Riley BA, COS Case Surfacer Operator 06/24/19 08/02/19 Emmanuel Riley BA, COS Case Surfacer Operator 11/29/19 04/10/20 Nan Suazo, DATA WAREHOUSE CONSULTANT Respiratory Therapist 12/10/21 2 documented as of this encounter
--- OUTSIDE RECORDS SUMMARY | 2024-12-24 11:35 | XMS_ITS | CCD ---
Author Organization Unknown Care Team Providers Care Animal Surgeon Name Role Phone Non Engaged, [facility] Primary Care Provider Unav ailable Unavailable Chronic Care Management Unavaila ble Summary Purpose DataExchange Insurance Providers Payer name Policy type / Coverage type Covered green party ID Effective Begin Date Effective End Date MEDICARE [place] [id number] Unknown Unknown NO COPAY HOLD [id number] Unknown Unknown Family History Family History data not found Medication Administered No Medication Administered data Reason For Visit No Reason For Visit data Medical Equipment No Medical Equipment data Advance Directives No Advance Directive data
--- OUTSIDE RECORDS SUMMARY | 2024-12-24 11:36 | XMS_ITS | CCD ---
Author Organization Unknown Care Team Providers Care Graphic Artist Name Role Phone Non Engaged, [facility] Primary Care Provider Unav ailable Unavailable Chronic Care Management Unavaila ble Summary Purpose DataExchange Insurance Providers Payer name Policy type / Coverage type Covered constitution party ID Effective Begin Date Effective End Date MEDICARE [place] [id number] Unknown Unknown NO COPAY HOLD [id number] Unknown Unknown Family History Family History data not found Medication Administered No Medication Administered data Reason For Visit No Reason For Visit data Medical Equipment No Medical Equipment data Advance Directives No Advance Directive data
== END 2024-12-23 23:59 | disposition home or self-care (01) ==
LOC: LAB.DROPOF 12-24 10:29
PROVIDERS: PCP Nurse Practitioner Family; Visit Provider Nurse Practitioner Family
DX: R31.9 Hematuria, unspecified (principal)
CPT/HCPCS: 87086; 87088; 87186

== ENCOUNTER 2025-02-22 12:47 | Emergency (ER) | payer MEDICARE, OTHER, SELFPAY ==
--- OUTSIDE RECORDS SUMMARY | 2024-12-27 10:30 | XMS_ITS | Encounter Summary ---
Author Organization [facility] Address [address] [place] [address] Care Team Providers Care Marble Carver Name Role Phone Pcp, No Primary Care Provider Unavailabl e Reason for Visit * Other Medical (Routine) - Closed Specialty Diagnoses / Procedures Referred By Brenda martinez Referred To Contact Neurology Diagnoses Injury of right ulnar nerve, unspecified injury location, initial encounter Procedures EMG / Nerve Conduction Study EMG / Nerve Conduction Study Giana Terry, NANCY [address] [address] Phone: tel: fax: Referral ID Status Reason Start Date Expiration Date V isits Requested Visits Authorized [id number] Closed Specialty Services Required 11/29/2024 05/31/2026 1 1 Encounter Details Date Type Department Care Team (Late st Contact Info) Description 12/27/2024 10:30 AM EDT Procedure Visit Physical [facility] & Rehabilitation Clinic at [facility] [address] [place] [address] Temo Freeman DO [address] [place] [address] Complex regional pain syndrome type 1 of right upper extremity (Primary Dx); Injury of right ulnar nerve, [...] Answer Date Recorded Patient Health Questionnaire-2 Score 0 12/27/2024 PHQ-9 Answer Date Recorded Patient Health Questionnaire-9 Score 0 12/27/2024 Comments Unknown Sex and Gender Information Value Date Recorded Sex Assigned at Not on file Legal Sex Female 8:22 PM EDT Gender Identity Not on file Sexual Orientation Not on file documented as of this encounter Last Filed Vital Signs Vital Sign Reading Time Taken Comments Blood Pressure 111/80 12/27/2024 10:28 AM EDT Pulse 86 12/27/2024 10:28 AM EDT Temperature - - Respiratory Rate - - Oxygen Saturation 98% 12/27/2024 10:28 AM EDT Inhaled Oxygen Concentration - - Weight 40.8 kg (90 lb) 12/27/2024 10:28 AM EDT Height 157.5 cm (5' 2 ) 12/27/2024 10:28 AM EDT Body Mass Index 16.46 12/27/2024 10:28 AM EDT documented in this encounter Functional Status * Over the past 2 weeks, how often have you been bothered by any of the following problems? Question Answer Date of Assessment Author Little interest or pleasure in doing things Not at all 12/27/2024 10:29 AM EDT Rahel Mayfield Feeling down, depressed, or hopeless Not at all 12/27/2024 10:29 AM EDT Rahel Chilel Patient Health Questionnaire-2 Score 0 12/27/2024 10:29 AM EDT Rahel Diaz * Question Answer Date of Assessment Author Trouble falling or staying asleep, or sleeping too much Not at all 12/27/2024 10:29 AM EDT Rahel Quinteros Feeling tired or having little energy Not at all 12/27/2024 10:29 AM EDT Rahel Chilel Poor appetite or overeating Not at all 12/27/2024 10 :29 AM EDT Rahel Roche Feeling bad about yourself - or that you are a failure or have let yourself or your family down Not at all 12/27/2024 10:29 AM EDT Rahel Chilel Trouble concentrating on things, such as reading the newspaper or watching television Not at all 12/27/2024 10:29 AM EDT Rahel Chilel Moving or speaking so slowly that other people could have noticed? Or the opposite - being so fidgety or restless that you have been moving around a lot more than usual. Not at all 12/27/2024 10:29 AM EDT Rahel Chilel Thoughts that you would be better off or hurting yourself in some way Not at all 12/27/2024 10:29 AM EDT Rahel Norman Patient Health Questionnaire-9 Score 0 12/27/2024 10:29 AM EDT Rahel Diaz * Calculated C-SSRS Risk Score (Lifetime/Recent) Answer Date of Assessment Author No Risk Indicated 12/27/2024 10:29 AM EDT Rahel Freeman * How difficult have these problems made it for you to do your work, take care of things at home, or get along with other people? Answer Date of Assessment Author Not difficult at all 12/27/2024 10:29 AM EDT Rahel Cummings * Question Answer Date of Assessment Author 1. Wish to be (Past 1 Month) No 12/27/2024 10:29 AM KELLENT Rahel Chilel 2. Non-Specific Active Suicidal Thoughts (Past 1 Month) No 12/27/2024 10:29 AM KELLENT Rahel Chilel 6. Suicidal Behavior (Lifetime) No 12/27/2024 10:29 AM EDT Rahel Chilel documented as of this encounter Miscellaneous Notes * Progress Notes - Temo Freeman DO - 12/27/2024 10:30 AM EDTAssociated Order(s): EMG / Nerve Conduction Study Pre-Procedure Diagnose(s): Injury of right ulnar nerve, unspecified injury location, initial encounter Post-Procedure Diagnose(s): Injury of right ulnar nerve, unspecified injury location, initial encounter Images from the original note were not included. Patient ID: Noam Duval is a 59 y.o. female. Encounter Diagnoses Name Primary? Complex regional pain syndrome type 1 of right upper extremity Yes Injury of right ulnar nerve, unspecified injury location, initial encounter EMG / Nerve Conduction Study Date/Time: 12/27/2024 10:30 AM Performed by: Temo Freeman DO Authorized by: Giana Terry PA Consent: Consent obtained: Written and verbal Consent given by: Patient Risks, benefits, and alternatives were discussed: yes Risks discussed: Bleeding, infection and pain [place] protocol: Procedure explained and questions answered to patient or proxy's satisfaction: yes Immediately prior to procedure, a time out was called: yes Patient identity confirmed: Verbally with patient Indications: Indications: Paresthesias Pre-procedure details: Procedure prep: alcohol swap prior to insertion of EMG electrode. Sedation: Sedation type: None Anesthesia: Anesthesia method: None Post-procedure details: Procedure completion: Tolerated well, no immediate complications [facility] Department of Physical [place] [address] Test Date: 12/27/2024 Patient: Noam Duval : 1965 Physician: Temo Freeman DO Sex: Female Height: ' Ref Phys: NANCY Culver ID#: [id number] Weight: lbs. Resident: Jae Sandra MD Patient Complaints: right hand ulnar nerve weakness & allodynia Medications: see EMR valium 10mgj today for procedure Patient History / Exam: Patient is a 59 yo female with history of cubital tunnel syndrome and subsequent release in June 2024. cubital tunnel release June 2024. provides independent history, stating that patient following surgery had arm and hand immobilized. noted that the brace pushed into the hand at the level of the adm of the right hand. Patient demonstrates ulnar claw hand when asked to extend the hand open. Patient describes allodynia, increased temperature, redness, edema in the area and weakness the hypothenar eminence and the 4th & 5th digits. Exam: Similar color on side to side comparison of the hypothenar eminence 3/5 sprinkling system irrigator of the 4th and 5th digits. 2/5 finger abduction of the 5th digit. Allodynia of the ulnar side of the hand both palmar and dorsum NCS & EMG Findings: The right ulnar motor study revealed normal onset latency, normal amplitudes, normal conduction velocity (B Elbow-Wrist), and normal conduction velocity (A Elbow-B Elbow). The right dorsal cutaneous sensory study revealed normal peak latency and normal amplitude. The right ulnar sensory study revealed normal peak latency and normal amplitude. Concentric EMG evaluation of the right flexor digitorum profundus muscle revealed normal insertional activity, no abnormal spontaneous activity and the voluntary MUAP demonstrated increased motor unit duration and slightly increased polyphasic potentials, with decreased recruitment (possibly secondary to pain). Unsure of significance as isolated to the FDP which can also be seen with normal remodeling. Concentric EMG evaluation of the right ADM revealed normal insertional activity, no abnormal spontaneous activity and the voluntary MUAPs evaluation was limited due to tolerance of the procedure, however, in limited sample no polyphasic potentials or other abnormalities identified. Concentric EMG evaluation of the right FCU and FDI muscle revealed normal insertional activities, no spontaneous activities and the voluntary MUAPs were within normal limits. I was present for and performed the entire procedure, interpretation of the results and completion of the report. Physicians performed all the NCS. Dr. Sandra observed the procedure. Impression: Electrodiagnostic evidence consistent with ulnar nerve function within normal limits. Clinically patient appears to have Type I CRPS. Patient meets [place] criteria, therefore recommend IVP referral. Jae Sandra MD Temo Freeman, DO Nerve Conduction Studies Anti Sensory Summary Table Stim Site NR Peak (ms) Norm Peak (ms) P-T Amp (??V) Norm P-T Amp Site1 Site2 Delta-P (ms) Dist (cm)Milo (m/s) Norm Milo (m/s) NCV Right DorsCutan Anti Sensory (Dorsum 5th MC) 30.5 ??C Wrist 2.4 <2.6 15.4 >8.0 Wrist Dorsum 5th MC 2.4 10.0 42 NCV Right Ulnar Anti Sensory (5th Digit) 30.3 ??C Wrist 3.6 <3.7 31.5 >20 Wrist 5th Digit 3.6 14.0 39 Motor Summary Table Stim Site NR Onset (ms) Norm Onset (ms) O-P Amp (mV) Norm O-P Amp Site1 Site2 Delta-0 (ms) Dist (cm) Milo (m/s) Norm Milo (m/s) NCV Right Ulnar Motor (Abd Dig Minimi) 30 ??C Wrist 2.7 <4.3 7.3 >2 B Elbow Wrist 2.6 15.0 58 >45 B Elbow 5.3 6.9 A Elbow B Elbow 2.3 14.0 61 >45 A Elbow 7.6 6.6 Axilla A Elbow 1.5 10.0 67 Axilla 9.1 6.0 EMG Side Muscle Nerve Root Ins Act Fibs Psw Other Amp Dur Poly Recrt Comment Right ABD Dig Min Ulnar C8-T1 Nml 0 0 Nml Nml 0 Nml Right 1stDorInt Ulnar C8-T1 Nml 0 0 Nml Nml 0 Nml Right FlexCarpiUln Ulnar C8,T1 Nml 0 0 Nml Nml 0 Nml Right FlexDigProf Ulnar C8,T1 Nml 0 0 Nml >12ms 1+ Decreased Limited by pain Waveforms: documented in this encounter Plan of Treatment Not on file documented as of this encounter Procedures Procedure Name Priority Date/Time Associated Diagnosis Comments EMG / NERVE CONDUCTION STUDY Routine 12/27/2024 10:30 AM EDT Injury of right ulnar nerve, unspecified injury location, initial encounter documented in this encounter Results * EMG / NERVE CONDUCTION STUDY (12/27/2024 10:30 AM EDT) Anatomical Region Laterality Modality Other Narrative 12/27/2024 10:30 AM EDT eTmo Freeman DO 12/27/2024 12:35 PM EMG / Nerve Conduction Study Date/Time: 12/27/2024 10:30 AM Performed by: Temo Freeman DO Authorized by: Giana Terry PA Consent: Consent obtained: Written and verbal Consent given by: Patient Risks, benefits, and alternatives were discussed: yes Risks discussed: Bleeding, infection and pain [place] protocol: Procedure explained and questions answered to patient or proxy's satisfaction: yes Immediately prior to procedure, a time out was called: yes Patient identity confirmed: Verbally with patient Indications: Indications: Paresthesias Pre-procedure details: Procedure prep: alcohol swap prior to insertion of EMG electrode. Sedation: Sedation type: None Anesthesia: Anesthesia method: None Post-procedure details: Procedure completion: Tolerated well, no immediate complications us Giana CRUZ NEUROLOGY ORDERABLES Final Res ult documented in this encounter Visit Diagnoses Diagnosis Complex regional pain syndrome type 1 of right upper extremity- Primary Injury of right ulnar nerve, unspecified injury location, initial encounter documented in this encounter Additional Health Concerns Assessment Noted Time PHQ-9 Depression Total Score: 0 12/28/19 10:29 AM EDT A fall risk assessment has been complete d for the patient 12/27/2024 10:30 AM EDT A Body Mass Index follow-up plan has been documented for the patient 12/27/2024 3:54 PM EDT documented as of this encounter Care Teams Marble Carver Relationship Specialty Start Date End Date Pcp, [place] [address] PCP - General Family Medicine 11/24/24 documented as of this encounter
--- OUTSIDE RECORDS SUMMARY | 2024-12-27 15:40 | XMS_ITS | Encounter Summary ---
Author Organization Healthcare Address [address] [place] [address] Care Team Providers Care Eating Disorder Psychologist Name Role Phone Pcp, No Primary Care Provider Unavailabl e Reason for Referral * Consultation (Routine) - Authorized Specialty Diagnoses / Procedures Referred By Brenda t Referred To Contact Pain Medicine Diagnoses Complex regional pain syndrome type 1 of right upper extremity Dago Canseco MD [address] [address] Phone: tel: fax: Provider, External Referral ID Status Reason Start Date Expiration Date Visits Requested Visits Authorized [id number] Authorized Consult and Treat 12/27/2024 06/28/2026 1 1 Reason for Visit * Reason Comments Consult Follow-up Consult Follow-up Encounter Details Date Type Department Care Team ([facility] st Contact Info) Description 12/27/2024 3:40 PM EDT Office Visit Massiel Porter [address] [place] [id number] Dago Canseco MD [address] [address] Complex regional pain syndrome type 1 of right upper extremity (Primary Dx) Social History Tobacco Use Types [...] Sign Reading Time Taken Comments Blood Pressure 115/81 12/27/2024 2:30 PM EDT Pulse 79 12/27/2024 2:30 PM EDT Temperature - - Respiratory Rate - - Oxygen Saturation 97% 12/27/2024 2:30 PM EDT Inhaled Oxygen Concentration - - Weight 40.8 kg (90 lb) 12/27/2024 2:30 PM EDT Height 157.5 cm (5' 2 ) 12/27/2024 2:30 PM EDT Body Mass Index 16.46 12/27/2024 2:30 PM EDT documented in this encounter Functional Status [...] (Past 1 Month) No 12/27/2024 10:29 AM Rahel Vogt 6. Suicidal Behavior (Lifetime) No 12/27/2024 10:29 AM KELLENT Rahel Chilel documented as of this encounter Miscellaneous Notes * Progress Notes - Law Riley MD - 12/27/2024 3:40 PM EDT Images from the original note were not included. [facility] Department of Surgery Division of Plastic and Reconstructive Surgery Outpatient Follow-Up Chief Complaint: Noam Duval is a 59 y.o. female who presents to clinic today for an outpatient follow-up appointment. Subjective HISTORY OF PRESENT ILLNESS Patient is a 59 y.o. 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 Patient is status-post right cubital tunnel release, right endoscopic carpal tunnel release, and right excision of distal pole of scaphoid on 07/07/2024 at [facility] with Dr. Esvin Pichardo. She was last seen in our clinic on 11/29/2024 for initial consultation of extreme hypersensitivity in the area of the superficial cutaneous nerve of the ulnar nerve branch on the volar aspect of the hypothenar eminence. Patient was then referred to undergo EMG/NCS, which was completed on 12/27/2024 and showed electrodiagnostic evidence consistent with ulnar nerve function within normal limits and clinically, patient appeared to have type 1 CRPS, which met the Budapest criteria for in terventional pain referral. Today, patient complains of persistent symptoms from her last follow up appointment. She presents today to discuss further evaluation and management of her symptoms as the pain is so severe, it affects her daily activities of living. INTERVAL HISTORY / TREATMENT(S) TO DATE 07/07/2024 - [facility], Esvin Pichardo MD: Right cubital tunnel release Right endoscopic carpal tunnel release Right excision of distal pole of scaphoid PAST MEDICAL HISTORY Updated and documented in EMR, reviewed during this appointment. Past Medical History: Diagnosis Date Anxiety Borderline personality disorder (CMS/HCC) Chronic hepatitis C (CMS/HCC) Depression Hypertension IVDU (intravenous drug user) PAST SURGICAL HISTORY Updated and documented in EMR, reviewed during this appointment. Past Surgical History: Procedure Laterality Date HAND SURGERY Right Right hand & Wrist Carpal Tunnel Release & Bone Removal FAMILY HISTORY Family history is as noted on the history intake form which was reviewed and scanned into [employer]. Negative for bleeding disorders, clotting disorders, or anesthesia issues. History reviewed. No pertinent family history. SOCIAL HISTORY Social History Tobacco Use Smoking status: Every Day Current packs/day: 0.50 Types: Cigarettes Smokeless tobacco: Never Vaping Use Vaping status: Some Days Substances: Nicotine Substance Use Topics Alcohol use: Never Drug use: Yes Types: Marijuana ALLERGIES Allergies Allergen Reactions Codeine Itching and Nausea And Vomiting Nickel Rash JEWELRY AND EARRINGS Tape/Bandaid Adhesive Rash medapore tape is ok Hydrocodone Vomiting and Itching HOME MEDICATIONS Current Outpatient Medications Medication Instructions Breo Ellipta 100-25 MCG/ACT aerosol powder inhale 1 puff into the lungs once daily. cyclobenzaprine (Flexeril) 5 MG tablet take 1 tablet by mouth 3 times daily as needed for pain. gabapentin (Neurontin) 100 MG capsule take 1 capsule by mouth 3 times daily for 10 days. gabapentin (NEURONTIN) 600 mg, Every 8 hours ketoconazole (NIZOral) 2 % cream APPLY TO AFFECTED AREAS TWO TIMES DAILY WHEN FLARED. levocetirizine (XYZAL) 5 mg, Daily naloxone (Narcan) 4 mg/0.1 mL nasal spray 0.1 mL by Nasal route as needed for Opioid Reversal. [place] the contents of one device (0.1mL) into one nostril upon signs of opioid overdose. Call 911. May repeat dose in other nostril if no response within 2-3 minutes. naproxen (NAPROSYN) 500 mg, 2 times daily nitrofurantoin, macrocrystal-monohydrate, (Macrobid) 100 MG capsule TAKE 1 CAPSULE BY MOUTH EVERY 12 HOURS WITH MEAL/FOOD FOR 10 DAYS omeprazole (PRILOSEC) 20 mg, As needed ondansetron ODT (Zofran-ODT) 4 MG disintegrating tablet DISSOLVE 1 TABLET BY MOUTH EVERY 6 HOURS ASNEEDED FOR NAUSEA. oxyCODONE (Roxicodone) 5 MG immediate release tablet Take one Tab by mouth every 6-8 hours as needed (PRN) predniSONE (Deltasone) 20 MG tablet take 1 tablet by mouth twice daily for 5 days. terbinafine (LamISIL) 250 MG tablet TAKE ONE TABLET BY MOUTH DAILY FOR 21 DAYS. Objective PHYSICAL EXAMINATION Review of Systems: A complete 14 point review of systems was discussed with the patient at this time and was negative except as noted in the HPI. Objective: All laboratory, images, tracings, histories, and vital sign data are personally reviewedand updated as appropriate unless otherwise noted. Visit Vitals BP 115/81 Pulse 79 Ht 1.575 m (5' 2 ) Wt 40.8 kg (90 lb) SpO2 97% BMI 16.46 kg/m?? Physical Exam: GENERAL: Well-developed, well-nourished, not in acute distress PSYCH: Mood and affect congruent and appropriate to situation NEURO: Mental status at baseline, oriented to person, place, and time HEENT: Normocephalic, no signs of trauma, anicteric, neck with normal ROM PULM: Normal pulmonary effort, non-labored, not in respiratory distress CV: Regular rate, palpable radial pulses SKIN: Normal color, texture; no rashes or lesions EXTREMITY: Focused exam of the right upper-extremity reveals: - Able to grossly flex and extend ring and small fingers - 4/5 strength of FDS and FDP of ring and small fingers - Able to form a composite fist RIGHT Upper Extremity Two Point Discrimination Thumb Index Long Ring Small Radial 2-Point 6 7 6 7 8 Ulnar 2-Point 6 6 6 6 6 IMAGING No radiographic imaging was obtained for this visit. RESULTS EMG / Nerve Conduction Study Date/Time: 12/27/2024 10:30 AM NCS & EMG Findings: The right ulnar [...] meets Budapest criteria, therefore recommend IVP referral. Assessment/Plan ASSESSMENT AND PLAN Noam Duval is a 59 y.o. 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 We had an in- depth discussion with the patient regarding her EMG/NCS imaging findings which showed electrodiagnostic evidence consistent with ulnar nerve function within normal limits and clinical signs/symptoms of type 1 CRPS, meeting the Budapest criteria for interventional painreferral. We have provided the patient with an outgoing interventional pain referral as the patientrequests to receive care from a provider that is closer to her home in [facility]. We expressed that the patient may follow up with our clinic as needed or if any other additional concerns or complaints arise in the meantime. Patient expressed understanding and was amenable with the plan. Below is a summary of the diagnoses addressed in today's visit and any associated orders: Problem List Items Addressed This Visit Complex regional pain syndrome type 1 of right upper extremity - Primary Relevant Orders Ambulatory referral to Interventional Pain Cosigned by Dago Canseco MD at 12/27/2024 3:53 PM EDT Associated attestation - Dago Canseco MD - 12/27/2024 3:53 PM EDT I saw and evaluated the patient with the resident/fellow. I discussed the case with the resident/fellow and agree with the findings and plan as documented. documented in this encounter Plan of Treatment Scheduled Referrals Name Type Priority Associated Diagnoses Order Schedule Ambulatory referral to Interventional Pain Outpatient Referral Routine Complex regional pain syndrome type 1 of right upper extremity Expected: 12/27/2024 (Approximate), Expires: 06/30/2026 documented as of this encounter Visit Diagnoses Diagnosis Complex regional pain syndrome type 1 of right upper extremity- Primary documented in this encounter Additional Health Concerns Assessment Noted Time PHQ-9 Depression Total Score: 0 12/28/19 10:29 AM EDT A fall risk assessment has been complete d for the patient 12/27/2024 10:30 AM EDT A Body Mass Index follow-up plan has been documented for the patient 12/27/2024 3:54 PM EDT documented as of this encounter Care Teams Eating Disorder Psychologist Relationship Specialty Start Date End Date Pcp, [place] [address] PCP - General Family Medicine 11/24/24 documented as of this encounter
[2025-02-22 12:50] VITALS: BP 144/91; PULSE 102; RESP 15; TEMP 36.8; O2SAT 96; BMI 17.2
--- OUTSIDE RECORDS SUMMARY | 2025-02-22 13:07 | XMS_ITS | Clinical Summary ---
Author Organization [facility] Address [address] [place] [phone] Phone Care Team Providers Care High Lift Operator Name Role Phone Tiffanie Muhammad APRN Unavailable Conditions or Problems Problem Name Problem Code Onset Date Status Entry Date Provider Comment Standard Description Annotate Anxiety Disorder 737994005 (SNOMED CT) 12/20 Active 12/24 Tiffanie Muhammad APRN Anxiety disorder Hepatitis C 61098115 (SNOMED CT) 12/20 Active 12/20 Tiffanie Muhammad APRN Viral hepatitis C Anxiety 55352468 (SNOMED CT) 12/20 Active 12/20 Tiffanie Winterser DOOR ATTENDANT Anxiety Constipation 26309906 (SNOMED CT) 12/20 Active 12/20 Tiffanie Muhammad APRN Constipation Medications Medication Instructions Start Date Stop Date Generic Name NDC Provider Miralax 17 gram powder in packet Drink 1 packet dissolved in water once a day as needed FOR CONSTIPATION polyethylene glycol 3350 [id number] Tiffanie Muhammad APRN BUSPIRONE HCL 15 MG TABS Take 1 tablet by mouth twice a day buspirone 03824496880 Tiffanie Muhammad APRN Medications Administered No information [...] Code Procedure Name Date Entry Date [facility] 40471 T1 Acute Hepatits Panel 2020 [facility] 6399 T1 CBC with diff [facility] 05550 T1 CMP [facility] 606 T1 Lipase CPT-3074F Most recent systolic blood pressure <130 mm Hg CPT-3078F Most recent diastoli c blood pressure <80 mm Hg [facility]-[id number] Medication Reconciliation Vital Signs Date Name Value [...]
--- OUTSIDE RECORDS SUMMARY | 2025-02-22 13:08 | XMS_ITS | Encounter Summary ---
Author Organization [place] [address] Care Team Providers Care Ed Manager Name Role Phone Raúl Franklin MD Primary Care Provider [phone] Jarod Falcon MD Unavailable [phone] Gonsalo Quarles DPM Unavailable Unavailab Darrell Johansen DPM Unavailable [phone] Brittany Wolf MD Primary Care Provider Lee Cardenas NP Primary Care Provider [phone] Holli Evangelista APRN Primary Care Provider Unava Maldonado Greene DO Primary Care Provider [phone] Emmanuel Riley BA, COS Unavailable Unavailabl Emmanuel Evans BA, COS Unavailable Unavailabl Emmanuel Evans BA, COS Unavailable Unavailabl Nan Arias TEAMCENTER SOLUTION ARCHITECT Unavailable Unavailable No Pcp, Per Patient Primary Care Provider Candice fraga Encounter Details Date Type Department Care Team (Latest Contact Info) Description 08/10/2013 Pre-Imaging Procedure Adult Med [address] [place], [place] [id number] Cadence Schroeder, WILLIAMS Mechanical complication of colostomy [...] documented as of this encounter Care Teams Ed Manager Relationship Specialty Start Date End Date Raúl Franklin MD [address] [place] [address] PCP - General 06/16/09 08/23/15 Brittany Wolf MD [address] [address] PCP - General Family Medicine 08/24/15 12/20/15 Lee Cintron NP [address] [place], [place] [id number] PCP - General Nurse Practitioner-Family 02/01/16 09/02/16 Holli Evangelista APRN [address] [place] [address] PCP - General Nurse Practitioner 09/03/16 04/02/18 Maldonado Murrieta DO [address] [place] [address] PCP - General Family Medicine 04/03/18 04/06/24 No Pcp, Per Patient PCP - General 08/05/24 Jarod Falcon MD [address] [facility] [place] [address] Internal Medicine-Gastroenterol ogy 09/16/12 Gonsalo Quarles, DPM [address] [facility] [place] [address] Scalder-Primary Podiatric Medicine 03/24/14 Darrell Interiano, DPM [address] [address] Scalder-Surgery, Foot & Ankle 05/05/14 Emmanuel Riley BA, COS Case Completion Manager 01/06/19 01/06/19 Emmanuel Riley BA, COS Case Completion Manager 06/24/19 08/02/19 Emmanuel Riley BA, COS Case Completion Manager 11/29/19 04/10/20 Nan Suazo, TEAMCENTER SOLUTION ARCHITECT Respiratory Therapist 12/10/21 2 documented as of this encounter
--- OUTSIDE RECORDS SUMMARY | 2025-02-22 13:08 | XMS_ITS | Clinical Summary ---
Author Organization Healthcare Address [address] [place] [address] Care Team Providers Care Medical Insurance Verifier Name Role Phone Pcp, No Primary Care [...] Nasal route as needed for Opioid Reversal. [place] the contents of one device (0.1mL) into one nostril upon signs of opioid overdose. Call 911. May repeat dose in other nostril if no response within 2-3 minutes. 5 Active naproxen (Naprosyn) 500 MG tablet Take 1 tablet by mouth 2 times a day. 5 Active levocetirizine (Xyzal) 5 MG tablet Take 1 tablet by mouth daily. 5 Active nitrofurantoin, macrocrystal-monohy drate, (Macrobid) 100 MG capsule TAKE 1 CAPSULE [...] MOUTH DAILY FOR 21 DAYS. 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 [place] [address] Temo Freeman DO Complex regional pain syndrome type 1 of right upper extremity (Primary Dx); Injury of right ulnar nerve, unspecified injury location, initial encounter 12/27/2024 Travel 12/03/2024 Telephone [place] [address] [place] [address] Dago Canseco MD HCN - Patient Message 11/30/2024 Telephone [facility] [address] [place] [address] Raúl Oleary DO HCN - Patient Message 11/29/2024 11:10 AM EDT Office Visit [facility] [address] [place] [address] Dago Canseco MD Hand pain, left (Primary Dx); Injury of right ulnar nerve, unspecified injury location, initial encounter 11/29/2024 10:54 AM EDT - 11/29/2024 11:59 PM EDT Hospital Encounter [facility] X-Ray [address] [place] [address] Hand pain, left Discharge Disposition: Home or Self Care 11/29/2024 Travel 11/24/2024 Telephone [facility] [address] [place] [address] Dago Canseco MD HCN - Patient Message from Last 3 Months Social History Tobacco [...] Pulse 79 12/27/2024 2:30 PM EDT Temperature 37.1 C (98.7 F) 11/29/2024 10:26 AM EDT Respiratory Rate - - Oxygen Saturation 97% 12/27/2024 2:30 PM EDT Inhaled Oxygen Concentration - - Weight 40.8 kg (90 lb) 12/27/2024 2:30 PM EDT Height 157.5 cm (5' 2 ) 12/27/2024 2:30 PM EDT Body Mass Index 16.46 12/27/2024 2:30 PM EDT Plan of Treatment Health Maintenance Due Date Last Done Comments Y-HIV Screening 1965 [facility]-Hepatitis C Screening 1965 [facility]-/Child/Adol SDOH Screenings 1965 [facility]- SDOH Screenings 1983 [facility]-Adult SDOH Screenings 1983 [facility]-Zoster Vaccines (1 of 2) 01/11/1984 [facility]-Pap Smear 1986 [facility]-Cervical Cancer Screening 1995 [facility]-HPV/Cotest 1995 CT Colonography 2010 Colonoscopy 2010 FIT-DNA 2010 FIT 2010 FOBT 2010 Sigmoidoscopy 2010 [facility]-Colorectal Cancer Screening 2010 [facility]-Pneumococcal Vaccine: 50+ Years (2 of 2 - PCV) 02/04/2013 02/05/2012, 01/16/2011 [facility]-Breast Cancer Screening 2015 TXQ-VXTZA-14 Vaccine (2 - Nicky risk series) 12/12/2020 11/14/2020 [facility]-Medicare Annual Wellness (AWV) 01/18/2023 01/18/2022, 12/05/2020, 04/09/2019, Additional history exists [facility]-RSV Vaccine: 60+ Years or (1 - Risk 60-74 years 1-dose series) 2025 [facility]-Influenza Vaccine (#1) 01/17/202504/09, 02/22/2019, 01/26/2014, Additional history exists [facility]-Depression Screening 12/27/2025 12/27/2024, 12/17 [facility]-DTaP,Tdap,and Td Vaccines (7 - Td or [...] ulnar nerve, unspecified injury location, initial encounter XR WRIST RIGHT 3+ VIEWS Routine 11/29/2024 11:02 AM EDT Hand pain, left from Last 3 Months Results * EMG / NERVE CONDUCTION STUDY (12/27/2024 10:30 AM EDT) Anatomical Region Laterality Modality Other Narrative 12/27/2024 10:30 AM EDT Temo Freeman DO 12/27/2024 12:35 PM EMG / Nerve Conduction Study Date/Time: 12/27/2024 10:30 AM Performed by: Temo Freeman DO Authorized by: Giana Terry PA Consent: Consent obtained: Written and verbal Consent given by: Patient Risks, benefits, and alternatives were discussed: yes Risks discussed: Bleeding, infection and pain Weston protocol: Procedure explained and questions answered to [...] Giana CRUZ NEUROLOGY ORDERABLES Final Res ult * XR Wrist Right 3+ Views (11/29/2024 [...] MEDICARE [employer] BET[employer] MEDICAID Care Teams Medical Insurance Verifier Relationship Specialty Start Date [place] [address] PCP - General Family Medicine 11/24/24
--- OUTSIDE RECORDS SUMMARY | 2025-02-22 13:08 | XMS_ITS | Encounter Summary ---
Author Organization [place] [address] Care Team Providers Care Data Communications Technician Name Role Phone Raúl Franklin MD Primary Care Provider [phone] Jarod Falcon MD Unavailable [phone] Gonsalo Quarles DPM Unavailable Unavailab Darrell Johansen DPM Unavailable [phone] Brittany Wolf MD Primary Care Provider Lee Cardenas NP Primary Care Provider [phone] Holli Evangelista APRN Primary Care Provider Unava Maldonado Greene DO Primary Care Provider [phone] Emmanuel Riley BA, COS Unavailable Unavailabl Emmanuel Evans BA, COS Unavailable Unavailabl Emmanuel Evans BA, COS Unavailable Unavailabl Nan Arias ASSEMBLY LOADER Unavailable Unavailable No Pcp, Per Patient Primary Care Provider Candice fraga Encounter Details Date Type Department Care Team (Late st Contact Info) Description 08/23/2013 Pre-Imaging Procedure Adult Med [address] [place] [id number] Yarely [place], RT Social History Tobacco Use [...] documented as of this encounter Care Teams Data Communications Technician Relationship Specialty Start Date End Date Raúl Franklin MD [address] [place] [id number] PCP - General 06/16/09 08/23/15 Brittany Wolf MD [address] [facility] [address] [address] PCP - General Family Medicine 08/24/15 12/20/15 Lee Cintron NP [address] [place] [address] PCP - General Nurse Practitioner-Family 02/01/16 09/02/16 Holli Evangelista APRN [address] [place] [address] PCP - General Nurse Practitioner 09/03/16 04/02/18 Maldonado Murrieta DO [address] [place] [address] PCP - General Family Medicine 04/03/18 04/06/24 No Pcp, Per Patient PCP - General 08/05/24 Jarod Falcon MD [address] [facility] [place] [address] Internal Medicine-Gastroenterol ogy 09/16/12 Gonsalo Quarles, DPM [address] [facility] [place] [address] Denture Contour Wire Specialist-Primary Podiatric Medicine 03/24/14 Darrell Interiano, DPM [address] [address] Denture Contour Wire Specialist-Surgery, Foot & Ankle 05/05/14 Emmanuel Riley BA, COS Case Grease Remover 01/06/19 01/06/19 Emmanuel Riley BA, COS Case Grease Remover 06/24/19 08/02/19 Emmanuel Riley BA, COS Case Grease Remover 11/29/19 04/10/20 Nan Suazo, ASSEMBLY LOADER Respiratory Therapist 12/10/21 2 documented as of this encounter
--- OUTSIDE RECORDS SUMMARY | 2025-02-22 13:08 | XMS_ITS | Encounter Summary ---
Author Organization [place] [address] Care Team Providers Care Plate Grainer Name Role Phone Jarod Falcon MD Unavailable [phone] Gonsalo Quarles DPM Unavailable Unavailab Darrell Johansen DPM Unavailable [phone] No Pcp, Per Patient Primary Care Provider Candcie fraga Reason for Visit * Reason Onset Date Comments Other 12/27/2024 EMG faxed to Encounter Details Date Type Department Care Team (Late st Contact Info) Description 12/27/2024 Telephone [facility] Neurology [facility] [address] [place] [address] Vanita Jimenez, DO [address] [place] [address] Other (EMG faxed to ) Social History Tobacco Use Types Packs/Day Years Used Date Smoking Tobacco: Every Day Cigarettes 0.5 50.1 Started: 01/12/1975 Smokeless Tobacco: Never Alcohol Use [...] encounter Miscellaneous Notes * Telephone Encounter - Anna Solitario MA - 12/27/2024 11:35 AM EDT Received call from Monica at [facility] requesting last EMG report to be faxed to them at [phone]. Report faxed. documented in this encounter Plan of Treatment [...] on filedocumented in this encounter Care Teams Plate Grainer Relationship Specialty Start Date End Date No Pcp, Per Patient PCP - General 08/05/24 Jarod Falcon MD Internal Medicine-Gastroenterology 09/16/12 Gonsalo Quarles DPM Accounts Receivable Processor-Primary Podiatric Medicine 03/24/14 Darrell Interiano DPM [address] [address] Accounts Receivable Processor-Surgery, Foot & Ankle 05/05/14 documented as of this encounter
--- OUTSIDE RECORDS SUMMARY | 2025-02-22 13:08 | XMS_ITS | Encounter Summary ---
Author Organization Healthcare Address [address] [place] [address] Care Team Providers Care Medical Technologist Microbiology Name Role Phone Pcp, No Primary Care Provider Unavailabl e Reason for Visit * Reason Onset Date Comments HCN - Patient Message 12/03/2024 Encounter Details Date Type Department Care Team (Late st Contact Info) Description 12/03/2024 Telephone [facility] [address] [place] [address] Dago Canseco MD [address] [address] HCN - Patient Message Social [...] down Not at all 12/27/2024 10:29 AM KELLENT Rahel Chilel Trouble concentrating on things, such as reading the newspaper or watching television Not at all 12/27/2024 10:29 AM KELLENT Rahel Chilel Moving or speaking so slowly that other people could have noticed? Or the opposite - being so fidgety or restless that you have been moving around a lot more than usual. Not at all 12/27/2024 10:29 AM KELLENT Rahel Chilel Thoughts that you would be better off or hurting yourself in some way Not at all 12/27/2024 10:29 AM KELLENT Rahel Norman Patient Health Questionnaire-9 Score 0 [...] (Past 1 Month) No 12/27/2024 10:29 AM EDT Rahel Chilel 2. Non-Specific Active Suicidal Thoughts (Past 1 Month) No 12/27/2024 10:29 AM EDT Rahel Chilel 6. Suicidal Behavior (Lifetime) No [...] openings that day currently. Best contact number: [phone] (mobile) Optimal time of day to reach caller: ANYTIME Additional comments/information from caller: None Note: Please do not reply to this message. Follow-up communication and further actions as a result of this message need to be communicated with the patient directly, if the patient is not active onMyChart. If the patient is active on MyChart, they will receive notification of the communication/outcome via Unocoin. documented in this encounter Plan of Treatment Not on file documented as of this encounter Visit Diagnoses Not on filedocumented in this encounter Additional Health Concerns Assessment Noted Time PHQ-9 Depression Total Score: 9 11/30/19 10:18 AM EDT A Body Mass Index follow-up plan has been documented for the patient 11/29/2024 11:41 AM EDT documented as of this encounter Care Teams Medical Technologist Microbiology Relationship Specialty Start Date End Date Pcp, No [address] [place] [address] PCP - General Family Medicine 11/24/24 documented as of this encounter
--- OUTSIDE RECORDS SUMMARY | 2025-02-22 13:08 | XMS_ITS | Encounter Summary ---
Author Organization Healthcare Address [address] [place] [address] Care Team Providers Care Lead Recoverer Name Role Phone Pcp, No Primary Care Provider Unavailabl e Encounter Details Date Type Department Care Team (Latest Contact Info) Description 12/27/2024 Travel Social History Tobacco Use Types Packs/Day [...] Rahel Chilel documented as of this encounter Plan of [...] documented as of this encounter Care Teams Lead Recoverer Relationship Specialty Start Date End Date Pcp, [place] [address] PCP - General Family Medicine 11/24/24 documented as of this encounter
--- OUTSIDE RECORDS SUMMARY | 2025-02-22 13:08 | XMS_ITS | Encounter Summary ---
Author Organization Healthcare Address [address] [id number] Care Team Providers Care Set Up Mechanic Crown Assembly Machine Name Role Phone Pcp, No Primary Care Provider Unavailabl e Reason for Referral * Consultation (Routine) - Closed Specialty Diagnoses / Procedures Referred By Brenda t Referred To Contact Orthopaedic Surgery Diagnoses Lesion of ulnar nerve, unspecified laterality Teodoro Paredes APRN [address] [place] [address] Phone: tel: fax: Referral ID Status Reason Start Date Expiration Date V isits Requested Visits Authorized [id number] Closed Specialty Services Required 09/23/2024 03/25/2026 1 1 Encounter Details Date Type Department Care Team (Late st Contact Info) Description 09/23/2024 [facility] [address] [place] [address] Teodoro Paredes APRN [address] [place] [address] Lesion of ulnar nerve, unspecified laterality (Primary [...] Primary documented in this encounter Care Teams Set Up Mechanic Crown Assembly Machine Relationship Specialty Start Date End Date Pcp, [place] [address] PCP - General Family Medicine 11/24/24 documented as of this encounter
--- NOTE | 2025-02-22 13:09 | XR_ITS ---
FINAL REPORT CLINICAL HISTORY: fall FINDINGS: RIGHT FOOT 3 views of the right foot were obtained. There is no acute fracture or dislocation. Visualized joint spaces are normally aligned. There is a calcification adjacent to the posterior calcaneus which is possibly within the soft tissues. Soft tissues are otherwise unremarkable. IMPRESSION: No acute bony abnormality. Reviewed, Interpreted and Dictated by Porsche [place] MD Transcribed by Jeanie Ruth Authenticated and [facility]
--- NOTE | 2025-02-22 13:09 | XR_ITS ---
FINAL REPORT CLINICAL HISTORY: fall FINDINGS: RIGHT ANKLE 3 views of the right ankle were obtained. There is no acute fracture or dislocation. The mortise is intact. Visualized joint spaces are normally aligned. Soft tissues are unremarkable. IMPRESSION: No acute bony abnormality. Reviewed, Interpreted and Dictated by Porsche Vasquez MD Transcribed by Jeanie Ruth Authenticated and [facility]
--- OUTSIDE RECORDS SUMMARY | 2025-02-22 13:09 | XMS_ITS | Encounter Summary ---
Author Organization [place] [address] Care Team Providers Care Driver Lifter Of Sanitation Truck Name Role Phone Raúl Franklin MD Primary Care Provider [phone] Jarod Falcon MD Unavailable [phone] Gonsalo Quarles DPM Unavailable Unavailab Darrell Johansen DPM Unavailable [phone] Brittany Wolf MD Primary Care Provider Lee Cardenas NP Primary Care Provider [phone] Holli Evangelista APRN Primary Care Provider Unava Maldonado Greene DO Primary Care Provider [phone] Emmanuel Riley BA, COS Unavailable Unavailabl Emmanuel Evans BA, COS Unavailable Unavailabl Emmanuel Evans BA, COS Unavailable Unavailabl Nan Arias FREELANCE PHOTOGRAPHER Unavailable Unavailable No Pcp, Per Patient Primary Care Provider Candice fraga Encounter Details Date Type Department Care Team (Late st Contact Info) Description 01/26/2013 Pre-Imaging Procedure Adult Med [address] [id number] Yarely Randall, RT Social History Tobacco Use [...] documented as of this encounter Care Teams Driver Lifter Of Sanitation Truck Relationship Specialty Start Date End Date Raúl Franklin MD [address] [facility] [place] [address] PCP - General 06/16/09 08/23/15 Brittany Wolf MD [address] [address] PCP - General Family Medicine 08/24/15 12/20/15 Lee Cintron NP [address] [place] [address] PCP - General Nurse Practitioner-Family 02/01/16 09/02/16 Holli Evangelista APRN [address] [place] [address] PCP - General Nurse Practitioner 09/03/16 04/02/18 Maldonado Murrieta DO [address] [place] [address] PCP - General Family Medicine 04/03/18 04/06/24 No Pcp, Per Patient PCP - General 08/05/24 Jarod Falcon MD [address] [place] [address] Internal Medicine-Gastroenterol ogy 09/16/12 Gonsalo Quarles, DPM [address] [place] [address] Cannery Tender Engineer-Primary Podiatric Medicine 03/24/14 Darrell Interiano, DPM [address] [place] [address] Cannery Tender Engineer-Surgery, Foot & Ankle 05/05/14 Emmanuel Riley BA, COS Case Motel Keeper 01/06/19 01/06/19 Emmanuel Riley BA, COS Case Motel Keeper 06/24/19 08/02/19 Emmanuel Riley BA, COS Case Motel Keeper 11/29/19 04/10/20 Nan Suazo, FREELANCE PHOTOGRAPHER Respiratory Therapist 12/10/21 2 documented as of this encounter
--- OUTSIDE RECORDS SUMMARY | 2025-02-22 13:09 | XMS_ITS | Encounter Summary ---
Author Organization [place] [address] Care Team Providers Care Senior Microsoft Consultant Name Role Phone Raúl Franklin MD Primary Care Provider [phone] Jarod Falcon MD Unavailable [phone] Gonsalo Quarles DPM Unavailable Unavailab Darrell Johansen DPM Unavailable [phone] Brittany Wolf MD Primary Care Provider Lee Cardenas NP Primary Care Provider [phone] Holli Evangelista APRN Primary Care Provider Unava Maldonado Greene DO Primary Care Provider [phone] Emamnuel Riley BA, COS Unavailable Unavailabl Emmanuel Evans BA, COS Unavailable Unavailabl Emmanuel Evans BA, COS Unavailable Unavailabl Nan Arias LINE INSTALLER Unavailable Unavailable No Pcp, Per Patient Primary Care Provider Candice fraga Encounter Details Date Type Department Care Team (Latest Contact Info) Description 04/08/2014 Pre-Imaging Procedure Adult Med [address] [place] [address] [place] [phone] Cadence Schroeder, WILLIAMS Gastroparesis (Primary Dx) Social [...] documented as of this encounter Care Teams Senior Microsoft Consultant Relationship Specialty Start Date End Date Raúl Franklin MD [address] [place] [address] PCP - General 06/16/09 08/23/15 Brittany Wolf MD [address] [facility] [address] [address] PCP - General Family Medicine 08/24/15 12/20/15 Lee Cintron NP [address] [place] [address] PCP - General Nurse Practitioner-Family 02/01/16 09/02/16 Holli Evangelista APRN [address] [place] [address] PCP - General Nurse Practitioner 09/03/16 04/02/18 Maldonado Murrieta DO [address] [place] [address] PCP - General Family Medicine 04/03/18 04/06/24 No Pcp, Per Patient PCP - General 08/05/24 Jarod Falcon MD [address] [facility] [address] [place], [place] [address] Internal Medicine-Gastroenterol ogy 09/16/12 Gonsalo Quarles, DPM [address] [facility] [address] [place], [place] [address] Home Office Claims Examiner-Primary Podiatric Medicine 03/24/14 Darrell Interiano DPM [address] [address] Home Office Claims Examiner-Surgery, Foot & Ankle 05/05/14 Emmanuel Riley BA, COS Case Emergency Management System Director 01/06/19 01/06/19 Emmanuel Riley BA, COS Case Emergency Management System Director 06/24/19 08/02/19 Emmanuel Riley BA, COS Case Emergency Management System Director 11/29/19 04/10/20 Nan Suazo, LINE INSTALLER Respiratory Therapist 12/10/21 2 documented as of this encounter
--- OUTSIDE RECORDS SUMMARY | 2025-02-22 13:09 | XMS_ITS | Clinical Summary ---
Author Organization [facility] Address [address] [place] [address] Phone Care Team Providers Care Gas Prover Name Role Phone Jarod Falcon MD Unavailable Gonsalo Quarles DPM Unavailable Unavailab Darrell Johansen DPM Unavailable [phone] No Pcp, Per Patient Primary Care Provider [...] 5 Active nalOXone (NARCAN) 4 mg/actuation Nasl Gardiner, Non-Aerosol 0.1 mL by Nasal route as needed for Opioid Reversal. Gardiner the contents of one device (0.1mL) into [...] (04/06/2019): Added automatically from request for surgery [id number] Cerebrovascular accident (CV A) due to occlusion [...] Date Type Department Care Team Description 12/27/2024 Telephone [facility] Neurology [facility] [address] [place] [address] Vanita Jimenez, DO Other (EMG faxed to ) from Last 3 Months Immunizations Immunization Administration [...] FISTULA ; Surgeon: Poppy Randolph MD; Location: [facility]; Service: General RECTAL PROLAPSE REPAIR 06/26/2016 Abdomen/N/A OPEN ABDOMINAL RECTOPEXY WITH RIGID PROCTOSCOPY ; Surgeon: Thierry Chpain MD; Location: [facility] OR; Service: General SIGMOIDOSCOPY 06/26/2016 Surgeon: [...] carpal tunnel; Surgeon: Esvin Pichardo MD; Location: [facility]; Service: Orthopedics CARPAL TUNNEL RELEASE 07/07/2024 Hand/Wrist/Right .; Surgeon: Esvin Pichardo MD; Location: [facility]; Service: Orthopedics Medical History Medical History [...] 0.5 50.1 Started: 01/12/1975 Smokeless Tobacco: Never Tobacco Cessation:Ready [...] Health Maintenance Due Date Last Done Comments Wellness Exam Medicare 01/11/1968 FIT 2010 Virtual Colonography 2010 Pneumococcal Vaccine 50+ (2 of 2 - PCV) 02/04/2013 02/05/2012, 01/16/2011 Breast Cancer Screening 08/12/2014 08/13/19 13 (Previously completed) Zoster (1 of 2) 2015 Cologuard 05/14/2021 05/14/2018 Sigmoidoscopy 06/26/2021 06/26/2016 Low Dose Lung Cancer Screening 10/24/2022 10/24/2021 Hepatitis B Vaccine (1 of 3 - Risk 3-dose series) 2025 RSV or 60+ (1 - Risk 60-74 years 1-dose series) 2025 COVID-19 Vaccine ( season) 2025 Influenza Vaccine (#1) 2025 9, 02/22/2019, 01/26/2014, [...] [place] [employer] Medical Devices Implanted Type Area Fruit Loader Machine Operator Device Identifier Shelf Expiration Date Model / Serial / Lot Bladder Sling Procedures Procedure Name Priority Date/Time Associated Diagnosis Comments CT ANGIOGRAM PULMONARY W CONTRAST STAT 10/24/2021 12:40 AM EDT COLOGUARD Routine 05/14/2018 3:22 PM EST Screening for colon cancer COLONOSCOPY Routine 06/03/2016 Screening for colon cancer from Last 3 Months or Most Recently Relevant to Health Maintenance Results * CT ANGIOGRAM PULMONARY W CONTRAST (10/24/2021 [...] Diameter : 25.4 cm SSDE Source : [employer] FINDINGS: The pulmonary arteries contain no filling [...] of the ordering clinician. Raúl Davila MD [facility] CT ORDERABLES Final Resu lt * COLOGUARD (05/14/2018 3:22 PM EST) COLOGUARD CLINICAL REPORT Negative Not Applicable Going, [employer] Comment: A negative result indicates a low [...] were screened with both Cologuard and colonoscopy. (hZeng Kaufman al, N Engl J Med 2014;370(14):3358-4089) COLOGUARD RE-SCREENING RECOMMENDATION: Periodic routine colorectal cancer screening is an important part of preventive healthcare for asymptomatic persons at average risk for colorectal cancer. Following a negative Cologuard result, the [place] Cancer Society and U.S. Multi-Society Task Force screening guidelines recommend a Cologuard re-screening interval of 3 years. References: [place] [employer] Society (ACS). Colorectal cancer prevention and early detection. [place], [place]: [place] [employer] Society; [updated 2015Sep 09]. https://www.cancer.org/cancer/ephyp-vhygdd-phomnl/pnbgorhbd-xkvawffqm-drakcsh/ac s-rec ommendations.html. Accessed January 16, 2018; Rachid DK, Lissett ALCARAZ, Shobha AshleyK, Colorectal Cancer Screening: Recommendations for Physicians and Patients from the U.S. Multi-Society Task Force on Colorectal Cancer Screening, Am J Gastroenterology 2017; 112:0879-9960. Test Type: Composite algorithmic analysis of stool [...] can be accessed at the following location: www.Crisp.com/results. Additional description of the Cologuard test process, warnings and precautions can be found at www.cologuardtest.com. Rx Only. Stool specimen (specimen) 05/14/2018 3:22 PM EST 05/16/2018 12:20 PM EST Maldonado Murrieta DO [employer]ENCE - ORDERABLES Aida mc Result Going, [employer] [address] [place] [address] * HM COLONOSCOPY (06/03/2016) 06/03/2016 Impressions SEP OFFICE - 06/03/2016 See report us Historical Provider HEALTH MAINTENANCE Final Res ult SEP OFFICE from Last 3 Months or Most Recently Relevant to Health Maintenance Insurance [facility] [address] [place] [address] [address]IC[address] [facility] [facility] [place] [employer] [facility] [place] [facility] MEDICARE MR WE[employer] HMO MEDICARE MR [facility] [address] Advance Directives For more information, please contact: [phone] * Full Code (Latest Code Status on File) Date Activated Date Inactivated Comments 08/25/2016 11:50 AM 08/31/2016 2:11 PM * Full Code Date Activated Date Inactivated Comments 06/27/2016 12:27 PM 06/30/2016 8:17 PM * Full Code Date Activated Date Inactivated Comments 11/09/2015 3:34 PM 11/11/2015 12:10 AM Care Teams Gas Prover Relationship Specialty Start Date End Date No Pcp, Per Patient PCP - General 08/05/24 Jarod Falcon MD Internal Medicine-Gastroenterology 09/16/12 Gonsalo Quarles DPM Economics Faculty Member-Primary Podiatric Medicine 03/24/14 Darrell Interiano DPM [address] [place] [address] Economics Faculty Member-Surgery, Foot & Ankle 05/05/14
--- NOTE | 2025-02-22 13:16 | ED_ITS ---
<Statement entered by Demarcus Díaz DO - 02/24/25 00:27> I was consulted by the MARGARITA, and we discussed the complexity of problems being addressed. I approved the treatment and management plan for this patient's care in the emergency department, thus performing a substantive portion of the medical decision making. Demarcus Díaz DO Discharge Plan Disposition Patient Disposition: Home, Self-Care Prescriptions Prescriptions: No Action cyclobenzaprine 5 mg tablet 5 mg PO TIDP PRN (Reason: Pain) Qty: 30 0RF albuterol sulfate 90 mcg/actuation HFA aerosol inhaler 2 puff inhalation Q4-6H PRN (Reason: shortness of breath or wheezing) Qty: 8.5 3RF promethazine 25 mg tablet 25 mg PO TID PRN (Reason: nausea and vomiting) Qty: 30 1RF ondansetron HCl 8 mg tablet 8 mg PO TIDP PRN (Reason: Nausea And Vomiting) Qty: 30 0RF gabapentin 600 mg tablet 600 mg PO Q8H Qty: 90 3RF levocetirizine 5 mg tablet PO Patient Comments: TAKE 1 TABLET BY MOUTH ONCE DAILY dextromethorphan-guaifenesin 60-1,200 mg tablet extended release 12 hr 1 tab PO Q12H Qty: 60 0RF amoxicillin-pot clavulanate 875-125 mg tablet 1 tab PO BID Qty: 20 0RF omeprazole 40 mg capsule,delayed release(DR/EC) 40 mg PO DAILY Qty: 90 2RF methylprednisolone [Medrol (Fabian)] 4 mg tablets,dose pack See Rx Instructions PO PER PKG DIR Qty: 21 0RF Rx Instructions: PO PER PKG DIR lidocaine 5 % adhesive patch,medicated 1 patch topical DAILY PRN (Reason: pain) Qty: 30 0RF Rx Instructions: leave on most painful area for up to 12 hrs Referrals Follow up/Referrals: Raleigh Gandhi DO [Staff Physician, Orthopedics] - See instructions Anthony Banks MD [Primary Care Provider, Family Practice] - See instructions Activity Restrictions/Add. Instructions Additional Instructions/Restrictions: Ice, elevate, use crutches and Cuong wrap for comfort. Call Dr. Gandhi's office for worsening pain or problems with your ankle and foot. Dr. Banks can also order MRI if that is necessary. Clinical Impressions Clinical Impression: Ankle sprain and strain Instructions Patient Instructions: Sprain, DI for Foot Sprain Print Language Print Language: Lithuanian Discharge ED Provider: Demarcus Díaz General Adult HPI General Chief complaint: Extremity Injury, Lower Stated complaint: AO10/7@0500, pain in Rt foot Time Seen by Provider: 02/22/25 13:02 Mode of Arrival: Ambulatory Source of Information: Patient Description of Symptoms (Recalled from ER Triage Doc. by RN): patient presents to the ED for right heel pain. patient tripped over a chain this morning around 5 am and stated she landed on her heel really hard to catch herself from completely on the ground. patient denies LOC and denies landing on any other part of her body. History of Present Illness HPI narrative: 60-year-old female presents to the ED for complaint of right foot and heel pain after she tripped and fell this morning. Stated that she landed on her heel pretty hard to try to catch herself. She did not hit her head or lose consciousness Related Data Home Medications ?Medication ?Instructions ?Recorded ?Confirmed levocetirizine 5 mg tablet mg PO 02/07/25 02/07/25 Previous Rx's ?Medication ?Instructions ?Recorded omeprazole 40 mg capsule,delayed 40 mg PO DAILY #90 ca ps 03/09/24 release cyclobenzaprine 5 mg tablet 5 mg PO TIDP PRN Pain #30 tabs 03/25/24 lidocaine 5 % topical patch 1 patch topical DAILY PRN pain #30 08/05/24 ea albuterol sulfate 90 mcg/actuation 2 puff inhalation Q 4-6H PRN 12/23/24 aerosol inhaler shortness of breath or wheez ing #8.5 grams ondansetron HCl 8 mg tablet 8 mg PO TIDP PRN Nausea An d 12/23/24 Vomiting #30 tabs promethazine 25 mg tablet 25 mg PO TID PRN nausea and 12/23/24 vomiting #30 tabs gabapentin 600 mg tablet 600 mg PO Q8H #90 tabs 12/29 methylprednisolone 4 mg tablets in See Rx Instructions PO PER PKG DIR 01/31/25 a dose pack (Medrol (Fabian)) #21 tabs amoxicillin 875 mg-potassium 1 tab PO BID #20 tabs clavulanate 125 mg tablet dextromethorphan-guaifenesin ER 60 1 tab PO Q12H #60 t abs 02/07/25 mg-1,200 mg tab,extend release,12hr Allergies Allergy/AdvReac Type Severity Reaction Status Date / Time adhesive (ADHESIVE) Allergy Unknown Unknown Verified 02/07/25 14:47 allergy reaction codeine (CODEINE) Allergy Unknown Unknown Verified 02/07/25 14:47 allergy reaction hydrocodone (HYDROCODONE) Allergy Unknown Unknown Verified 02/07/25 14:47 allergy reaction nickel (NICKEL) Allergy Unknown Unknown Verified 02/07/25 14:47 allergy reaction Milk Containing Products Allergy Vomiting Verified 02/07/25 14:47 (Dairy) [facility] Disclaimer: The information contained in this section may have been updated after the patient was seen, as this information can be updated by other users. Medical History Sinusitis Headache Nausea & vomiting Infected sebaceous cyst of skin Weight loss, non-intentional Eating disorder Hx of ovarian cyst Asthma TIA (transient ischemic attack) Hypertension Bipolar 1 disorder PTSD (post-traumatic stress disorder) Rash Surgical History History of rectal surgery History of bladder suspension procedure Hx of hysterectomy Hx of right knee surgery Hx of appendectomy Family History Mother Alcoholism Coronary artery disease Diabetes FHx: mental illness Heart attack Hypertension Grandmother Alcoholism FHx: mental illness Father Cancer LUNG CA FHx: mental illness Sister Coronary artery disease Other Substance abuse Social History Smoking Status: Current every day smoker tobacco type: cigarettes packs per day: 2 second hand exposure: Yes alcohol intake: current alcohol intake frequency: holidays/special occasions only substance use type: former substance user and heroin current occupational status: disabled Travel in the last 8 weeks?: None household members: significant other housing: house Have you lived/traveled outside US in past 30 days?: No Contact w/someone who lives/traveled outside US past 30 days?: No Exposure to someone with infectious disease in past 14 days?: No Do you have a fever (greater than 100.4 F or 38 C)?: No Have you tested positive for COVID-19?: No Exposed to someone with COVID-19 in past 14 days?: No Do you have a sore throat?: No Do you have a cough?: No Do you have any weakness?: No Do you have any diarrhea?: No Are you experiencing any unusual bleeding?: No Do you have any muscle aches/pain?: No Do you have any abdominal pain?: No Are you experiencing loss of taste or smell?: No Other Medical History Have you received the Flu Vaccine for this season: Yes Have you received the Pneumonia Vaccine: No ROS Obtained: Yes Systems reviewed as appropriate & no additional complaints except as documented Constitutional Constitutional: Reports as per HPI Physical Exam General General appearance: alert Head Head exam: normocephalic Eye Eye exam: Present PERRL and EOMI ENT ENT exam: Present mucous membranes moist Neck Neck exam: Present full ROM and trachea midline Respiratory Respiratory exam: Present normal lung sounds bilaterally Cardiovascular Cardiovascular exam: Present normal rhythm, tachycardia, normal heart sounds, +S1 and +S2 Abdominal Exam Abdominal exam: Present soft and normal bowel sounds Extremities Exam Extremities exam: Present normal inspection, tenderness (Tenderness to heel) and normal capillary refill Neurological Exam Neurological exam: Present alert and oriented X3 Skin Skin exam: Present warm, dry and intact Medical Decision Making Medical Records Screening: Per USPSTF and CDC recommendations, given the prevalence of disease in our region, it is our hospital?s policy to screen for HIV and viral Hepatitis for all patients aged 18 and over and those with ongoing risk factors. Collins Inquiry Pt receiving controlled substance: No Collins was queried for this patient: No Vital Signs: 02/22/25 12:50 Temperature 98.2 F Temperature Source Oral Pulse Rate [Right Radial] 102 H Respiratory Rate 15 Blood Pressure [Right Arm] 144/91 H Blood Pressure Mean [Right Arm] 108 Blood Pressure Source [Right Arm] Automatic Cuff Blood Pressure Position [Right Arm] Sitting 02 Sat by Pulse Oximetry 96 Oxygen Delivery Method Room Air Orders (Tests/Meds): ED MEDICATIONS Discontinued Medications Generic Name Dose Route Start Last Admin Trade Name Freq PRN Reason Stop Dose Admin Oxycodone HCl 5 mg 02/22/25 13:12 02/22/25 13:35 Oxycodone 5mg Immediate Release Tablet PO 02/22/25 13:13 5 mg ONCE ONE Administration ORDERS Category Date Time Status Ankle XR -Right minimum 3 Views [XR ankle RT min 3V] Exams 02/22/25 13:09 Completed Stat Foot XR right minimum 3 views [XR foot RT min 3V] Stat Exams 02/22/25 13:09 Completed Medical Decision Narrative: patient is a 60-year-old female presenting to the emergency department for evaluation of heel pain. Patient is hemodynamically stable and nontoxic- appearing upon arrival, afebrile. Differential diagnosis includes heel fracture, sprain or strain. Workup will be conducted with specific imaging. Initial intervention includes analgesics. Patient x-ray showed nothing acute. Patient given Cuong wrap and crutches for comfort. Patient given Dr. Gandhi for follow-up if necessary. Patient is safe for discharge home. Critical Care Critical Care Time Critical Care Time: No
[2025-02-22] MEDS: OXYCODONE 5MG IMMEDIATE RELEASE TABLET 5 MG PO (13:35)
--- OUTSIDE RECORDS SUMMARY | 2025-02-22 14:08 | XMS_ITS | CCD ---
Author Organization Unknown Care Team Providers Care Pewter Finisher Name Role Phone Non Engaged, [facility] Primary Care Provider Unav ailable Unavailable Chronic Care Management Unavaila ble Summary Purpose DataExchange Insurance Providers Payer name Policy type / Coverage type Covered libertarian ID Effective Begin Date Effective End Date MEDICARE [place] [id number] Unknown Unknown NO COPAY HOLD [id number] Unknown Unknown Family History Family History data not found Medication Administered No Medication Administered data Reason For Visit No Reason For Visit data Medical Equipment No Medical Equipment data Advance Directives No Advance Directive data
[2025-02-22 15:33] VITALS: BP 136/86; PULSE 96; RESP 15; TEMP 36.8; O2SAT 96
== END 2025-02-22 15:38 | disposition home or self-care (01) ==
PROVIDERS: Emergency Provider Student in an Organized Health Care Education/Training Program; PCP Family Medicine
DX: S93.401A Sprain of unspecified ligament of right ankle, initial encounter (principal); S96.911A Strain of unspecified muscle and tendon at ankle and foot level, right foot, initial encounter; M79.671 Pain in right foot; W01.10XA Fall on same level from slipping, tripping and stumbling with subsequent striking against unspecified object, initial encounter
CPT/HCPCS: 73610; 73630; 99283

== ENCOUNTER 2025-04-20 08:46 | Outpatient (CLI) | payer MEDICARE, OTHER, SELFPAY ==
--- OUTSIDE RECORDS SUMMARY | 2025-04-20 08:49 | XMS_ITS | Clinical Summary ---
Author Organization [facility] Address [address] [facility] [address] [place] [address] Phone Care Team Providers Care Assembly Line Worker Name Role Phone Outside, Provider Unavailable [phone] Conditions or Problems No information available. Medications No information available. Medications Administered No information available. Allergies, Adverse Reactions, Alerts No information available. Results No information available. Plan of Care No information available. Procedures No information available. Vital Signs No information available. Immunizations No information available. Advance Directives No information available.
--- OUTSIDE RECORDS SUMMARY | 2025-04-20 08:50 | XMS_ITS | Clinical Summary ---
Author Organization [facility] Address [address] [place] [address] Phone Care Team Providers Care Cooker Pie Filling Name Role Phone Jarod Falcon MD Unavailable [phone] Gonsalo Quarles DPM Unavailable Unavailab Darrell Johansen DPM Unavailable [phone] No Pcp, Per Patient Primary Care Provider [...] 5 Active nalOXone (NARCAN) 4 mg/actuation Nasl [place], Non-Aerosol 0.1 mL by Nasal route as needed for Opioid Reversal. [place] the contents of one device (0.1mL) into [...] (04/06/2019): Added automatically from request for surgery [id number] Cerebrovascular accident (CV A) due to occlusion [...] attempt 02/06/2013 Tobacco use disorder 05/25/2010 013 Immunizations Immunization Administration Dates Next Due DT [...] FISTULA ; Surgeon: Poppy Randolph MD; Location: [facility] MAIN OR; Service: General RECTAL PROLAPSE REPAIR 06/26/2016 Abdomen/N/A OPEN ABDOMINAL RECTOPEXY WITH RIGID PROCTOSCOPY ; Surgeon: Thierry Chapin MD; Location: [facility] MAIN OR; Service: General SIGMOIDOSCOPY 06/26/2016 Surgeon: Thierry Chapin MD; Location: [facility]; Service: General BLADDER SURGERY BLADDER SLING FOR INCONTINENCE HEMORRHOID SURGERY 06/09/2019 Perineum/N/A EXAM UNDER ANESTHESIA ANORECTUM WITH BIOPSY, EXCISION OF PERIANAL LESION ; Surgeon: Thierry Chapin MD; Location: [facility] MAIN OR; Service: General RECTAL SURGERY 06/09/2019 Buttocks/N/A Surgeon: Thierry Chapin MD; Location: [facility] MAIN OR; Service: General GASTROSTOMY TUBE PLACEMENT ULNAR TUNNEL RELEASE 07/07/2024 Arm/Elbow/Right right excision of distal pole scaphoid, right Cubital Tunnel release, right endoscopic carpal tunnel; Surgeon: Esvin Pichardo MD; Location: [facility]; Service: Orthopedics CARPAL TUNNEL RELEASE 07/07/2024 Hand/Wrist/Right .; Surgeon: Esvin Pichardo MD; Location: [facility]; Service: Orthopedics Medical History Medical History Date Comments Generalized anxiety disorder 05/25/2010 Hyperlipidemia 05/25/2010 Gastroparesis 05/25/2010 Irritable bowel syndrome Diaphragmatic hernia Peripheral neuropathy Depressive disorder TIA (transient ischemic attack) GERD (gastroesophageal reflux disease) 1 COPD (chronic obstructive pu lmonary disease) ([facility]) 05/25/2010 Cervical cancer (HCC) Osteoarthritis Opioid use [...] Date Smoking Tobacco: Every Day Cigarettes 0.5 50.3 Started: 01/12/1975 Smokeless Tobacco: Never Tobacco Cessation:Ready [...] Cancer Screening 08/12/2014 08/13/19 13 (Previously completed) RSV or 60+ (1 - Risk 50-74 years 1-dose series) 2015 Zoster (1 of 2) 2015 Cologuard 05/14/2021 05/14/2018 Sigmoidoscopy 06/26/2021 06/26/2016 Low Dose Lung Cancer Screening 10/24/2022 10/24/2021 Hepatitis B Vaccine (1 of 3 - Risk 3-dose series) 2025 COVID-19 Vaccine (1 - season) 2025 Influenza Vaccine (#1) 2025 9, [...] 140/90 Blood Pressure 142/70(2024 1:45 PM EDT) Cadence Marx, RN Maintain a healthy diet, exercise regularly and maintain an ideal body weight General No Carlee Mansfield RMA Stay Tobacco Free Lifestyle No Carlee Mansfield RMA Medical Devices Implanted Type Area Poiser Balance Device Identifier Shelf Expiration Date Model / [...] Diameter : 25.4 cm SSDE Source : [employer] FINDINGS: The pulmonary arteries contain no filling [...] Diameter : 25.4 cm SSDE Source : [employer] FINDINGS: The pulmonary arteries contain no filling [...] please contactthe office of the ordering clinician. us Raúl Davila MD [facility] ORDERABLES Final Resu lt * COLOGUARD (05/14/2018 3:22 PM EST) COLOGUARD CLINICAL REPORT Negative Not Applicable [employer] Comment: A negative result indicates a low [...] screened with both Cologuard and colonoscopy. (Zheng Miller et al, N Engl J Med 2014;370(14):0378-3336) COLOGUARD RE-SCREENING RECOMMENDATION: Periodic routine colorectal cancer screening is an important part of preventive healthcare for asymptomatic persons at average risk for colorectal cancer. Following a negative Cologuard result, the [place] Cancer Society and U.S. Multi-Society Task Force screening guidelines recommend a Cologuard re-screening interval of 3 years. References: [place] Cancer Society (ACS). Colorectal cancer prevention and early detection. [place], [place]: [place] [employer] Society; [updated 2016 Sep 09]. https://www.cancer.org/cancer/rznck-xwuqtc-yxuihe/tmybqazpf-nuzqclelc-wwhaawa/ac s-rec ommendations.html. Accessed January 16, 2018; Rachid DK, Lissett CR, Shobha AshleyK, Colorectal Cancer Screening: Recommendations for Physicians and Patients from the U.S. Multi-Society Task Force on Colorectal Cancer Screening, Am J Gastroenterology 2017; 112:4443-5357. Test Type: Composite algorithmic analysis of stool [...] can be accessed at the following location: www.Measureful.TouchOfModern/results. Additional description of the Cologuard test process, warnings and precautions can be found at www.cologuardtest.com. Rx Only. Stool specimen (specimen) 05/14/2018 3:22 PM EST 05/16/2018 12:20 PM EST us Okeefe Lit DO [employer] - ORDERABLES Aida jesusita Result [employer] [address] [place] [address] * HM COLONOSCOPY (06/03/2016) 06/03/2016 Impressions SEP OFFICE - 06/03/2016 See report us Historical Provider HEALTH MAINTENANCE Final Res ult SEP OFFICE from Last 3 Months or Most Recently Relevant to Health Maintenance Insurance [facility] MEDICARE MR [facility] [employer] [facility] [address] [facility] [place] [employer] [place] [facility] MEDICARE MR [facility] MEDICARE MR [facility] [place] Advance Directives For more information, please contact: [phone] * Full Code (Latest Code Status on File) Date Activated Date Inactivated Comments 08/25/2016 11:50 AM 08/31/2016 2:11 PM * Full Code Date Activated Date Inactivated Comments 06/27/2016 12:27 PM 06/30/2016 8:17 PM * Full Code Date Activated Date Inactivated Comments 11/09/2015 3:34 PM 11/11/2015 12:10 AM Care Teams Cooker Pie Filling Relationship Specialty Start Date End Date No Pcp, Per Patient PCP - General 08/05/24 Jarod Falcon MD Internal Medicine-Gastroenterology 09/16/12 Gonsalo Quarles DPM Research Aide-Primary Podiatric Medicine 03/24/14 Darrell Interiano DPM [facility] [address] [place] [id number] Research Aide-Surgery, Foot & Ankle 05/05/14
--- OUTSIDE RECORDS SUMMARY | 2025-04-20 08:50 | XMS_ITS | Encounter Summary ---
Author Organization [place] [address] Care Team Providers Care Primary Care Nurse Name Role Phone Raúl Franklin MD Primary Care Provider [phone] Jarod Falcon MD Unavailable [phone] Gonsalo Quarles DPM Unavailable Unavailab Darrell Johansen DPM Unavailable [phone] Brittany Wolf MD Primary Care Provider Lee Cardenas NP Primary Care Provider [phone] Holli Evangelista APRN Primary Care Provider Unava Maldonado Greene DO Primary Care Provider [phone] Emmanuel Riley BA, COS Unavailable Unavailabl Emmanuel Evans BA, COS Unavailable Unavailabl Emmanuel Evans BA, COS Unavailable Unavailabl Nan Arias BIOLOGY PROFESSOR Unavailable Unavailable No Pcp, Per Patient Primary Care Provider Candice fraga Encounter Details Date Type Department Care Team (Latest Contact Info) Description 08/10/2013 Pre-Imaging Procedure Adult Med [address] [place], [place] [id number] Cadence Schroeder, WILLIAMS Mechanical complication of colostomy [...] documented as of this encounter Care Teams Primary Care Nurse Relationship Specialty Start Date End Date Raúl Franklin MD [address] [place] [address] PCP - General 06/16/09 08/23/15 Brittany Wolf MD [address] [address] PCP - General Family Medicine 08/24/15 12/20/15 Lee Cintron NP [address] [place], [place] [id number] PCP - General Nurse Practitioner-Family 02/01/16 09/02/16 Holli Evangelista APRN [address] [place] [address] PCP - General Nurse Practitioner 09/03/16 04/02/18 Maldonado Murrieta DO [address] [place] [address] PCP - General Family Medicine 04/03/18 04/06/24 No Pcp, Per Patient PCP - General 08/05/24 Jarod Falcon MD [address] [facility] [place] [address] Internal Medicine-Gastroenterol ogy 09/16/12 Gonsalo Quarles, DPM [address] [facility] [place] [address] Ux Lead-Primary Podiatric Medicine 03/24/14 Darrell Interiano, DPM [address] [address] Ux Lead-Surgery, Foot & Ankle 05/05/14 Emmanuel Riley BA, COS Case Editorial Assistant 01/06/19 01/06/19 Emmanuel Riley BA, COS Case Editorial Assistant 06/24/19 08/02/19 Emmanuel Riley BA, COS Case Editorial Assistant 11/29/19 04/10/20 Nan Suazo, BIOLOGY PROFESSOR Respiratory Therapist 12/10/21 2 documented as of this encounter
--- OUTSIDE RECORDS SUMMARY | 2025-04-20 08:50 | XMS_ITS | Clinical Summary ---
Author Organization [facility] Address [address] [place] [address] Care Team Providers Care Crimper Operator Name Role Phone Pcp, No Primary [...] Nasal route as needed for Opioid Reversal. [place] the contents of one device (0.1mL) into [...] type 1 of right upper extremity 12/27/2024 Social History Tobacco Use Types Packs/Day Years [...] 02/04/2013 02/05/2012, 01/16/2011 [facility]-Breast Cancer Screening 2015 [id number] Vaccine (2 - Nicky risk series) 12/12/2020 [...] on patient's age to complete this topic Insurance [employer] MEDICARE A[employer]NA BETTER [employer] MEDICAID Care Teams Crimper Operator Relationship Specialty Start Date End Date Pcp, [place] [address] PCP - General Family Medicine 11/24/24
--- OUTSIDE RECORDS SUMMARY | 2025-04-20 08:50 | XMS_ITS | Encounter Summary ---
Author Organization [place] [address] Care Team Providers Care Senior Grant Writer Name Role Phone Raúl Franklin MD Primary Care Provider [phone] Jarod Falcon MD Unavailable [phone] Gonsalo Quarles DPM Unavailable Unavailab Darrell Johansen DPM Unavailable [phone] Brittany Wolf MD Primary Care Provider Lee Cardenas NP Primary Care Provider [phone] Holli Evangelista APRN Primary Care Provider Unava Maldonado Greene DO Primary Care Provider [phone] Emmanuel Riley BA, COS Unavailable Unavailabl Emmanuel Evans BA, COS Unavailable Unavailabl Emmanuel Evans BA, COS Unavailable Unavailabl Nan Arias FAMILY AND CONSUMER SCIENCES PROFESSOR Unavailable Unavailable No Pcp, Per Patient Primary Care Provider Candice fraga Encounter Details Date Type Department Care Team (Latest Contact Info) Description 04/08/2014 Pre-Imaging Procedure Adult Med [address] [place] [address] [place] [id number] Cadence Schroeder, WILLIAMS Gastroparesis (Primary Dx) Social [...] as of this encounter Care Teams Senior Grant Writer Relationship Specialty Start Date End Date Raúl Franklin MD [address] [place] [address] PCP - General 06/16/09 08/23/15 Brittany Wolf MD [address] [facility] [address] [address] PCP - General Family Medicine 08/24/15 12/20/15 Lee Cintron NP [address] [place] [address] PCP - General Nurse Practitioner-Family 02/01/16 09/02/16 Holli Evangelista APRN [address] [place] [address] PCP - General Nurse Practitioner 09/03/16 04/02/18 Maldonado Murrieta DO [address] [place] [address] PCP - General Family Medicine 04/03/18 04/06/24 No Pcp, Per Patient PCP - General 08/05/24 Jarod Falcon MD [address] [facility] [address] [place], [place] [address] Internal Medicine-Gastroenterol ogy 09/16/12 Gonsalo Quarles, DPM [address] [facility] [address] [address] [place], [place] [address] Item Processing Clerk-Primary Podiatric Medicine 03/24/14 Darrell Interiano DPM [address] [address] Item Processing Clerk-Surgery, Foot & Ankle 05/05/14 Emmanuel Riley BA, COS Case Charter Bus Driver 01/06/19 01/06/19 Emmanuel Riley BA, COS Case Charter Bus Driver 06/24/19 08/02/19 Emmanuel Riley BA, COS Case Charter Bus Driver 11/29/19 04/10/20 Nan Suazo, FAMILY AND CONSUMER SCIENCES PROFESSOR Respiratory Therapist 12/10/21 2 documented as of this encounter
--- OUTSIDE RECORDS SUMMARY | 2025-04-20 08:50 | XMS_ITS | Encounter Summary ---
Author Organization [place] [address] Care Team Providers Care Strap Cutter Name Role Phone Raúl Franklin MD Primary Care Provider [phone] Jarod Falcon MD Unavailable [phone] Gonsalo Quarles DPM Unavailable Unavailab Darrell Johansen DPM Unavailable [phone] Brittany Wolf MD Primary Care Provider Lee Cardenas NP Primary Care Provider [phone] Holli Evangelista APRN Primary Care Provider Unava Maldonado Greene DO Primary Care Provider [phone] Emmanuel Riley BA, COS Unavailable Unavailabl Emmanuel Evans BA, COS Unavailable Unavailabl Emmanuel Evans BA, COS Unavailable Unavailabl Nan Arias FUR CUTTING MACHINE OPERATOR Unavailable Unavailable No Pcp, Per Patient Primary Care Provider Candice fraga Encounter Details Date Type Department Care Team (Late st Contact Info) Description 01/26/2013 Pre-Imaging Procedure Adult Med [address] [phone] Yarely Randall, RT Social History Tobacco Use [...] documented as of this encounter Care Teams Strap Cutter Relationship Specialty Start Date End Date Raúl Franklin MD [address] [facility] [place] [address] PCP - General 06/16/09 08/23/15 Brittany Wolf MD [address] [address] PCP - General Family Medicine 08/24/15 12/20/15 Lee Cintron NP [address] [place] [address] PCP - General Nurse Practitioner-Family 02/01/16 09/02/16 Holli Evangelista APRN [address] [place] [address] PCP - General Nurse Practitioner 09/03/16 04/02/18 Maldonado Murrieta DO [address] [place] [address] PCP - General Family Medicine 04/03/18 04/06/24 No Pcp, Per Patient PCP - General 08/05/24 Jarod Falcon MD [address] [facility] [place] [address] Internal Medicine-Gastroenterol ogy 09/16/12 Gonsalo Quarles, DPM [address] [facility] [place] [address] Senior Piping Designer-Primary Podiatric Medicine 03/24/14 Darrell Interiano, DPM [address] [place] [phone] Senior Piping Designer-Surgery, Foot & Ankle 05/05/14 Emmanuel Riley BA, COS Case Dredge Lever Operator 01/06/19 01/06/19 Emmanuel Riley BA, COS Case Dredge Lever Operator 06/24/19 08/02/19 Emmanuel Riley BA, COS Case Dredge Lever Operator 11/29/19 04/10/20 Nan Suazo, FUR CUTTING MACHINE OPERATOR Respiratory Therapist 12/10/21 2 documented as of this encounter
--- OUTSIDE RECORDS SUMMARY | 2025-04-20 08:50 | XMS_ITS | Encounter Summary ---
Author Organization [facility] Address [address] [place] [address] Care Team Providers Care Dough Panner Name Role Phone Pcp, No Primary Care Provider Unavailabl e Reason for Referral * Consultation (Routine) - Closed Specialty Diagnoses / Procedures Referred By Brenda t Referred To Contact Orthopaedic Surgery Diagnoses Lesion of ulnar nerve, unspecified laterality Teodoro Paredes APRN [address] [place] [address] Phone: tel: fax: Referral ID Status Reason Start Date Expiration Date V isits Requested Visits Authorized [id number] Closed Specialty Services Required 09/23/2024 03/25/2026 1 1 Encounter Details Date Type Department Care Team (Late st Contact Info) Description 09/23/2024 [facility] [address] [place] [address] Teodoro Paredes APRN [address] [place] [address] Lesion of ulnar nerve, unspecified laterality (Primary [...] Primary documented in this encounter Care Teams Dough Panner Relationship Specialty Start Date End Date Pcp, [place] [address] PCP - General Family Medicine 11/24/24 documented as of this encounter
--- OUTSIDE RECORDS SUMMARY | 2025-04-20 08:50 | XMS_ITS | Encounter Summary ---
Author Organization [place] [address] Care Team Providers Care Hot Top Liner Name Role Phone Raúl Franklin MD Primary Care Provider [phone] Jarod Falcon MD Unavailable [phone] Gonsalo Quarles DPM Unavailable Unavailab Darrell Johansen DPM Unavailable [phone] Brittany Wolf MD Primary Care Provider Lee Cardenas NP Primary Care Provider [phone] Holli Evangelista APRN Primary Care Provider Unava Maldonado Greene DO Primary Care Provider [phone] Emmanuel Riley BA, COS Unavailable Unavailabl Emmanuel Evans BA, COS Unavailable Unavailabl Emmanuel Evans BA, COS Unavailable Unavailabl Nan Arias GRADING CLERK Unavailable Unavailable No Pcp, Per Patient Primary Care Provider Candice fraga Encounter Details Date Type Department Care Team (Late st Contact Info) Description 08/23/2013 Pre-Imaging Procedure Adult Med [address] [phone] Yarely Randall, RT Social History Tobacco Use [...] documented as of this encounter Care Teams Hot Top Liner Relationship Specialty Start Date End Date Raúl Franklin MD [address] [place] [id number] PCP - General 06/16/09 08/23/15 Brittany Wolf MD [address] [facility] [address] [address] PCP - General Family Medicine 08/24/15 12/20/15 Lee Cintron NP [address] [place] [address] PCP - General Nurse Practitioner-Family 02/01/16 09/02/16 Holli Evangelista APRN [address] [place] [address] PCP - General Nurse Practitioner 09/03/16 04/02/18 Maldonado Murrieta DO [address] [place] [address] PCP - General Family Medicine 04/03/18 04/06/24 No Pcp, Per Patient PCP - General 08/05/24 Jarod Falcon MD [address] [facility] [address] Internal Medicine-Gastroenterol ogy 09/16/12 Gonsalo Quarles, DPM [address] [facility] [address] Knurling Machine Tender-Primary Podiatric Medicine 03/24/14 Darrell Interiano, DPM [address] [address] Knurling Machine Tender-Surgery, Foot & Ankle 05/05/14 Emmanuel Riley BA, COS Case Armored Service Technician 01/06/19 01/06/19 Emmanuel Riley BA, COS Case Armored Service Technician 06/24/19 08/02/19 Emmanuel Riley BA, COS Case Armored Service Technician 11/29/19 04/10/20 Nan Suazo, GRADING CLERK Respiratory Therapist 12/10/21 2 documented as of this encounter
--- NOTE | 2025-04-20 09:15 | XR_ITS ---
FINAL REPORT TECHNIQUE: Bone densitometry calculations of the lumbar spine and bilateral hips were obtained. CLINICAL HISTORY: osteoporosis COMPARISON: None FINDINGS: Using L1-4, the bone mineral density of the spine is 0.646 g/cm2, corresponding to T-score of -1.8 and a Z score of -0.5. This is within the range of osteopenia. Using the left hip, the bone mineral density of the femoral neck is 0.646 g/cm2, corresponding to a T-score of -1.8 and a Z-score of -0.5. This is within the range of osteopenia. Using the right hip, the bone mineral density of the femoral neck is 0.635 g/cm?, corresponding to a T-score of -1.9 and a Z-score of -0.6. This is within the range of osteopenia. NOTE: T-score: Standard deviation compared with peak bone mass of young adult mean. *Following the recommendations of the International Society of Bone densitometry, classification of hip BMD is based on the lower of two T-scores; total hip or femoral neck. IMPRESSION: 1. Bone mineral density of the lumbar spine within the range of osteopenia. 2. Bone mineral density of the bilateral femoral necks within the range of osteopenia. Reviewed, Interpreted and Dictated by Porsche Vasquez MD Transcribed by Joy Boone Authenticated and [facility]
== END 2025-04-20 23:59 | disposition home or self-care (01) ==
LOC: RAD 08:47
PROVIDERS: PCP Family Medicine; Visit Provider Family Medicine
DX: M85.88 Other specified disorders of bone density and structure, other site (principal); M85.851 Other specified disorders of bone density and structure, right thigh; M85.852 Other specified disorders of bone density and structure, left thigh; M81.0 Age-related osteoporosis without current pathological fracture
CPT/HCPCS: 77080